=== PATIENT | male | born 1940 | race Asian ===

== ENCOUNTER → 2018-07-22 | Day surgery (SDC) | payer MEDICARE ==
[2018-07-14 13:08] LABS: BASOPHILS # (AUTO) 0.1 (0.0-0.1); BASOPHILS % 0.3 % (0.0-1.0); EOSINOPHILS # (AUTO) 0.1 (0.0-0.4); EOSINOPHILS % 0.7 % (0.0-6.0); HEMATOCRIT 39.1 % (38.2-49.6); HEMOGLOBIN 12.8 g/dL (14.0-18.0); LYMPHOCYTES # (AUTO) 0.5 (1.0-3.2); LYMPHOCYTES % 2.5 % (18.0-39.1); MEAN CORPUSCULAR HEMOGLOBIN 31.9 pg (28-32); MEAN CORPUSCULAR HGB CONC 32.7 g/dL (31-35); MEAN CORPUSCULAR VOLUME 97.5 fL (81-99); MONOCYTES # (AUTO) 0.6 (0.2-0.8); MONOCYTES % 3.2 % (4.4-11.3); NEUTROPHILS # (AUTO) 17.5 (2.1-6.9); NEUTROPHILS % 92.2 % (38.7-80.0); PLATELET COUNT 259 x10e3/uL (140-360); RED BLOOD COUNT 4.01 x10e6/uL (4.3-5.7)
[~2018-07-22] MED LIST: AMLODIPINE BESY10 MG PO; FENTANYL CITRATE/PF 100MCG/2 ML INJ ONE; FOLIC ACID1 MG PO; GLUCAGON FOR INJ 1 MG VIAL ONE; HYOSCYAMINE SULFATE 0.5 MG/ML INJ ONE; LIDOCAINE HCL 2% LOCAL INJ 5 ML SDV VIAL INJ ONE; METHOTREXATE2.5 MG PO; MIDAZOLAM HCL 2 MG/2 ML VIAL ONE; PHENYLEPHRINE HCL 1% 10 MG/ML VIAL ONE; PROPOFOL IV EMULSION 10 MG/ML 50 ML VIAL ONE; RAPAFLO4 MG PO; VITAMIN D400 UNIT PO; Z.0.ALLOPURINOL100 M PO; Z.0.FOLIC ACID1 MG PO; Z.0.JALYN 0.5-0.41 E PO; Z.0.MILLIPRED5 MG PO; [UNRECOGNIZED DRUG - OTHER]
--- OUTSIDE RECORDS SUMMARY | 2018-07-22 11:39 | XMS REPORT | Continuity of Care Document ---
Author Author Edward [facility] Interface Address Unknown Phone Unavailable Problems Problem Status Onset Date Classification Date Reported Comments Source XRAY Active 06/22/2018 [facility] KIDNEY Active 07/11/2016 [facility] 592.0 Active 04/28/2014 [facility] 592.1/592.0 Active 04/28/2014 [facility] UNK Active 04/28/2014 [facility] RENAL STONE Active 03/11/2014 [facility] 592.0,592.1/KSTONE PROTOCOL NO IV AND Active 02/12/2013 [facility] STONE 592.0 592.1 / CPT 19276 [id number] Active 01/06/2012 [facility] [place]<sup>1</sup> Resolved 03/07/2010 Problem 06/25/2018 This problem was automatically added by [facility]cern for patients less than 28 days old. [facility] [place] Gout Active Problem 06/25/2018 [facility] [place] Hypertension Active Problem 06/25/2018 [facility] [place] Renal stones Resolved Problem 06/25/2018 [facility] [place] Ureteral stone Active Problem 06/25/2018 [facility] [place] CALCULUS OF KIDNEY Active [facility] CALCULUS OF URETER Active [facility] +PPD Active [facility] NONSP REVA SKN TEST WO TB Active [facility] PNEUMONIA Active [facility] PNEUMONIA, ORGANISM NOS Active [facility] M25.521 Active [facility] PAIN IN RIGHT ELBOW Active [facility] COUGH Active [facility] COUGH Active [facility] KUB Active [facility] CALCULUS OF KIDNEY Active [facility] CHEST PAIN, UNSPECIFIED Active [facility] PAIN IN RIGHT HAND Active [facility] PAIN IN LEFT HAND Active [facility] Medications Medication Details Route Status Patient Instructions Ordering Provider Order Date Source Pyridium 100 mg oral tablet 100 mg=1 tab, PO, TID, # 21 tab, 0 Refill(s) Active 05/18/2014 [facility] Ciprofloxacin 500 MG Oral Tablet [Cipro] 500 mg=1 tab, PO, Q12H, # 14 tab, 0 Refill(s) Active 05/18/2014 [facility] Hydromorphone 0.3 mg, Route: IVP, Q3H, Dosing Weight 68.182, kg, PRN Pain Score 4-6, Start date: 05/18/14 10:06:00, Duration: 30 day, Stop date: 06/17/14 10:05:00 Inactive 05/18/2014 [facility] Ciprofloxacin 2 MG/ML Injectable Solution [Cipro] 400 mg, Route: IVPB, ONCE, Dosing Weight 68.182, kg, Start date: 05/18/14 9:25:00, Stop date: 05/18/14 9:25:00 Inactive 05/18/2014 [facility] Calcium Chloride 0.0014 MEQ/ML / Potassium Chloride 0.004 MEQ/ML / Sodium Chloride 0.103 MEQ/ML / Sodium Lactate 0.028 MEQ/ML Injectable Solution 1,000 mL, Rate: 25 ml/hr, Infuse over: 40 hr, Route: IV, Dosing Weight 68.182 kg, Total Volume: 1,000, Start date: 05/18/14 8:20:00, Duration: 30 day, Stop date: 06/17/14 8:19:00 Inactive 05/18/2014 [facility] ondansetron 4 mg, 2 mL, Route: IVP, Drug form: INJ, ONCE, Dosing Weight 68.182, kg, PRN Nausea & Vomiting, Start date: 01/10/12 12:51:00 IVP No Longer Active [facility] 01/10/2012 [facility] acetaminophen-hydrocodone 325 mg-5 mg oral tablet 2 tab, Route: PO, Drug Form: TAB, Dosing Weight 68.182, kg, Q4H, PRN Pain Score 4-6, Start date: 01/10/12 12:51:00, Duration: 30 day, Stop date: 02/09/12 12:50:00 PO No Longer Active [facility] 01/10/2012 [facility] niCARdipine 0.25 mg, 0.1 mL, Route: IVP, Drug form: INJ, Q5Min, Dosing Weight 68.182, kg, PRN Elevated BP, Start date: 01/10/12 12:51:00, Duration: 4 doses or times, Stop date: Limited # of times IVP No Longer Active [facility] 01/10/2012 [facility] fentanyl 25 microgram, 0.5 mL, Route: IVP, Drug form: INJ, Q5Min, Dosing Weight 68.182, kg, PRN Pain Score 4-6, Start date: 01/10/12 12:51:00, Duration: 4 doses or times, Stop date: Limited # of times IVP No Longer Active [facility] 01/10/2012 [facility] metoprolol 1 mg, 1 mL, Route: IVP, Drug form: INJ, Q5Min, Dosing Weight 68.182, kg, PRN Elevated BP, Start date: 01/10/12 12:51:00, Duration: 5 doses or times, Stop date: Limited # of times IVP No Longer Active [facility] 01/10/2012 [facility] labetalol 5 mg, 1 mL, Route: IVP, Drug form: INJ, Q5Min, Dosing Weight 68.182, kg, PRN Elevated BP, Start date: 01/10/12 12:51:00, Duration: 5 doses or times, Stop date: Limited # of times IVP No Longer Active [facility] 01/10/2012 [facility] hydrALAZINE 5 mg, 0.25 mL, Route: IVP, Drug form: INJ, Q5Min, Dosing Weight 68.182, kg, PRN Elevated BP, Start date: 01/10/12 12:51:00, Duration: 4 doses or times, Stop date: Limited # of times IVP No Longer Active [facility] 01/10/2012 [facility] Lactated Ringers Injection IV 1,000 mL 1,000 mL, Rate: 50 ml/hr, Infuse over: 20 hr, Route: IV, kg, Total Volume: 1,000, Start date: 01/10/12 12:51:00, Duration: 30 day, Stop date: 02/09/12 12:50:00 IV No Longer Active [facility] 01/10/2012 [facility] naloxone 0.04 mg, 0.04 mL, Route: IVP, Drug form: INJ, Q2MIN, Dosing Weight 68.182, kg, PRN Narcotic Reversal, Start date: 01/10/12 12:51:00, Duration: 8 doses or times, Stop date: Limited # of times IVP No Longer Active [facility] 01/10/2012 [facility] flumazenil 0.2 mg, 2 mL, Route: IVP, Drug form: INJ, PRN, Dosing Weight 68.182, kg, PRN Benzodiazepine Reversal, Initial dose, Start date: 01/10/12 12:51:00, Duration: 30 day, Stop date: 02/09/12 11:50:00 IVP No Longer Active [facility] 01/10/2012 [facility] meperidine 12.5 mg, 0.25 mL, Route: IVP, Drug form: INJ, Q30Min, Dosing Weight 68.182, kg, PRN Other -See Comment, For shivering, Start date: 01/10/12 12:51:00, Duration: 2 doses or times, Stop date: Limited # of times IVP No Longer Active [facility] 01/10/2012 [facility] morphine Sulfate 2 mg, 1 mL, Route: IVP, Drug form: INJ, Q5Min, Dosing Weight 68.182, kg, PRN Pain Score 4-6, Start date: 01/10/12 12:51:00, Duration: 8 doses or times, Stop date: Limited # of times IVP No Longer Active [facility] 01/10/2012 [facility] hydromorphone 0.5 mg, 0.5 mL, Route: IVP, Drug form: SOLN, Q5Min, Dosing Weight 68.182, kg, PRN Pain Score 4-6, Start date: 01/10/12 12:51:00, Duration: 5 doses or times, Stop date: Limited # of times IVP No Longer Active [facility] 01/10/2012 [facility] Ditropan 5 mg, Route: PO, Drug form: TAB, ONCE, Dosing Weight 68.182, kg, Start date: 01/10/12 11:41:00, Stop date: 01/10/12 11:41:00 PO No Longer Active [facility] 01/10/2012 [facility] Pyridium 200 mg, Route: PO, Drug form: TAB, ONCE, Dosing Weight 68.182, kg, Start date: 01/10/12 11:41:00, Stop date: 01/10/12 11:41:00 PO No Longer Active [facility] 01/10/2012 [facility] gentamicin 120 mg, Route: IVPB, ONCE, Dosing Weight 68.182, kg, Start date: 01/10/12 8:02:00, Stop date: 01/10/12 8:02:00 IVPB No Longer Active [facility] 01/10/2012 [facility] Ancef 1 gm, Route: IVPB, ONCE, Dosing Weight 68.182, kg, Start date: 01/10/12 8:02:00, Duration: 1 doses or times, Stop date: 01/10/12 8:02:00 IVPB No Longer Active [facility] 01/10/2012 [facility] Lactated Ringers Injection IV 1000 mL 1,000 mL, Rate: 25 ml/hr, Infuse over: 40 hr, Route: IV, Dosing Weight 68.182 kg, Total Volume: 1,000, Start date: 01/10/12 7:46:00, Duration: 30 day, Stop date: 02/09/12 7:45:00 IV No Longer Active [facility] 01/10/2012 [facility] folic acid 1 mg oral tablet 1 mg, 1 tab, PO, Daily, 30 tab, Substitution Allowed, TAB PO Active 01/08/2012 [facility] allopurinol 100 mg oral tablet 100 mg, 1 tab, PO, BID, 180 tab, Substitution Allowed, TAB PO Active 01/08/2012 [facility] amLODipine 10 mg oral tablet 10 mg, 1 tab, PO, Daily, 30 tab, Substitution Allowed, TAB PO Active 01/08/2012 [facility] prednisoLONE 5 mg oral tablet 5 mg, 1 tab, PO, Daily, 7 tab, Substitution Allowed, TAB PO Active 01/08/2012 [facility] Advair Diskus 250 mcg-50 mcg inhalation powder 1 puff, INHALATION, BID, 28 ea, Substitution Allowed, Maintenance, PWDR INHALATION Active 01/08/2012 [facility] Allergies, Adverse Reactions, Alerts Substance Category Reaction Severity Reaction type Status Date Reported Comments Source NSAIDs Assertion Drug allergy Active [facility] Immunizations Immunization Date Given Site Status Last Updated Comments Source Results Order Name Results Value Reference Range Date Interpretation Comments Source Hand 2 views Bilateral DX Hand 2 views Bilateral DX Hand 2 views Bilateral DX, 06/22/2018 11:31 CDT HISTORY: - M79.641 Pain in right hand; m79.642 pain in left hand COMPARISON: None FINDINGS: Right hand: There is radiocarpal joint space narrowing. Fish carpal crowding noted with areas of carpal bony ankylosis. There also appears to be bony ankylosis of several carpal metacarpal joints. There is MCP joint space narrowing with irregularity along the ulnar aspect of the 2nd and 3rd metacarpal heads likely chronic erosions. There is also arthrosis of the DIP joints with joint space narrowing and a few small osteophytes. Periarticular osteopenia noted. Soft tissues unremarkable. Left hand: Marked radiocarpal joint space narrowing with lucencies either cyst or erosions in the distal radius. There is fish carpal crowding with bony ankylosis of several carpal bones. Marked MCP joint space narrowing with marginal erosions at the 2nd and 3rd metacarpal joints. Mild arthrosis of the DIP joints. Mild soft tissue swelling about the hand and wrist. 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 TECHNIQUE: Frontal and lateral radiographs of the chest were obtained. FINDINGS: 2. Findings suggestive of chronic obstructive pulmonary disease. The lungs are clear. There are no pulmonary infiltrates or pleural effusions. The heart and pulmonary vasculature are within normal limits. There are mild atherosclerotic calcifications involving the thoracic aorta. The regional skeleton is unremarkable. IMPRESSION: 1. No active disease. 2. Findings suggestive of chronic obstructive pulmonary disease. : [id number] 06/22/2018 - - Read by: Eddy Saldaña MD Dictated Date/time: 06/22/18 13:43 Electronically Signed by: Eddy Saldaña MD 06/22/18 13:44 FINAL REPORT [facility] Abdomen AP DX Abdomen AP DX KUB: The low pelvis is not included. The renal shadows are obscured by bowel content. There is a 2 mm density overlying the lower pole of the left kidney. There are no other visible urinary tract calculi. There is moderate fecal material throughout the colon. The abdominal gas pattern is otherwise normal. There is no significant change compared to 06/26/2015. [id number] 07/11/2016 - - Read by: Susie Breen MD Dictated Date/time: 07/11/16 10:13 Electronically Signed by: Susie Breen MD 07/11/16 10:16 FINAL REPORT [facility] Sinus wo contrast CT Sinus wo contrast CT EXAM: SINUS CT WITHOUT CONTRAST DATE: 09/01/2015 9:40 AM CDT CLINICAL INDICATION: Nasal polyposis. TECHNIQUE: Thin section axial images are obtained from skull base through vertex ([place]) without IV contrast. Axial, sagittal, and coronal images are interpreted. Dose: DLP 250 mGy-cm COMPARISON: 05/08/2009 CT sinus FINDINGS: Frontal sinuses: Moderate bilateral mucosal thickening with occluded frontal ethmoidal recesses. Mucous in each antrum. Ethmoid sinuses: Diffuse bilateral anterior mucosal thickening without septal demineralization. Planum and fovea are intact. Infundibular are occluded. Sphenoid sinuses: Circumferential mucosal thickening bilaterally. Bilateral ethmoidal recess occlusion. Planum is intact. Maxillary sinuses: Status post bilateral antrostomy. Circumferential mucosal thickening with patent postoperative drainage pathways. [place] drainage pathways are occluded. Nasal airway: Slight S-shaped septal deviation without spurring. Middle lower turbinates are hypertrophic with small polyps. No large inflammatory polyp identified. Mastoids: Clear Soft tissues: Unremarkable IMPRESSION: Sinonasal polyposis with multifocal paranasal sinus mucosal inflammation and drainage obstruction, but no air-fluid level or destructive lesion. Findings are stable to minimally improved compared to the 05/08/2009 CT. 09/01/2015 - - Read by: Dagoberto Cordova MD Dictated Date/time: 09/01/15 10:24 Electronically Signed by: Dagoberto Cordova MD 09/01/15 12:53 FINAL REPORT [facility] Abdomen AP DX Abdomen AP DX Clinical Indication: n20.0 renal stone; Comparison: 06/20/2014 Report: see impression IMPRESSION: No urinary tract calculus is identified radiographically. Arterial vascular calcifications and phleboliths are again noted. Degenerative changes of the lumbar spine. Bowel gas pattern normal. SL: [id number] 06/26/2015 - - Read by: Marko Whitman MD Dictated Date/time: 06/26/15 17:37 Electronically Signed by: Marko Whitman MD 06/26/15 17:38 FINAL REPORT [facility] Elbow 3 views DX Elbow 3 views DX Examination: Right elbow, 3 views History: m25.521 pain in right elbow Comparison: None. Findings: Multiple views of the right elbow show no acute bony fracture, joint dislocation, or definitive osseous erosion. Moderate to severe osteoarthrosis of the ulnohumeral and radiocapitellar joints is seen with joint space narrowing and marginal osseous spurring with subchondral cystic change. Bones are demineralized. Large right elbow joint effusion is noted. Arterial calcifications are seen. 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 SL: 16 01/24/2015 - - Read by: Mir Denny MD Dictated Date/time: 01/24/15 11:35 Electronically Signed by: Mir Denny MD 01/24/15 11:36 FINAL REPORT [facility] Chest 2 views DX Chest 2 views DX Examination: Chest x-ray, 2 views History: cough Comparison: 04/23/2013 Findings: Cardiac silhouette is normal in size. Emphysematous changes of the lungs are seen. No pleural effusion or pneumothorax is seen. No focal consolidation is noted. The osseous structures are without focal abnormality. IMPRESSION: COPD without acute disease SL: 16 08/26/2014 - - Read by: Mir Denny MD Dictated Date/time: 08/26/14 09:56 Electronically Signed by: Mir Denny MD 08/26/14 09:57 FINAL REPORT [facility] Abdomen AP DX Abdomen AP DX HISTORY: Urinary tract calculi. Abdomen one view. COMPARISON: 05/18/2014. Left ureteral stent no longer present. Left internal iliac calcific atherosclerotic plaque, as before. Few pelvic phleboliths. No urinary tract calculus is evident, otherwise. SL:13 06/20/2014 - - Read by: Marko Whitman MD Dictated Date/time: 06/20/14 09:16 Electronically Signed by: Marko Whitman MD 06/20/14 09:18 FINAL REPORT [facility] Renal pyelogram retrograde DX Renal pyelogram retrograde DX Examination: Retrograde pyelogram, 6 views History: Lt stone/fluoro time=[id number]/Dose=[id number]/Cysto Room Comparison: None. Findings: Multiple intraoperative fluoroscopic views from a retrograde pyelogram are submitted for interpretation. The left ureter was cannulated. Contrast in the distal segment of the left ureter is seen. Left-sided ureteral stent is subsequently placed. SL: 16 05/18/2014 - - Read by: Mir Denny MD Dictated Date/time: 05/18/14 10:58 Electronically Signed by: Mir Denny MD 05/18/14 10:59 FINAL REPORT [facility] Abdomen AP view Abdomen AP view KUB: The renal shadows are obscured by bowel content. The 5 mm calculus in the distal left ureter is unchanged in position from the previous KUB on 04/28/2014. No other definite urinary tract calculi are seen. There is moderate fecal material throughout the colon. The gas pattern is otherwise within normal limits. Degenerative changes in the lumbar spine are again seen without acute osseous abnormalities. SL:13 05/18/2014 - - Read by: Susie Breen MD Dictated Date/time: 05/18/14 07:03 Electronically Signed by: Susie Breen MD 05/18/14 07:05 FINAL REPORT [facility] CHEM PANEL BUN 24 mg/dL - 05/11/2014 [facility] [place] eGFR 67 mL/min/1.73m2 05/11/2014 1Result Comment: The eGFR is calculated using the CKD-EPI formula. In most young, healthy individuals the eGFR will be >90 mL/min/1.73m2. The eGFR declines with age. An eGFR of 60-89 may be normal in some populations, particularly the elderly, for whom the CKD-EPI formula has not been extensively validated. Use of the eGFR is not recommended in the following populations: Individuals with unstable creatinine concentrations, including patients and those with serious co-morbid conditions. Patients with extremes in muscle mass or diet. The data above are obtained from the National Kidney Disease Education Program (NKDEP) which additionally recommends that when the eGFR is used in patients with extremes of body mass index for purposes of drug dosing, the eGFR should be multiplied by the estimated BMI. [facility] CHEM PANEL Chloride Lvl 107 meq/L 95 - 109 05/11/2014 [facility] CHEM PANEL CO2 31 meq/L 24 - 32 05/11/2014 [facility] CHEM PANEL Potassium Lvl 4.3 meq/L 3.5 - 5.1 05/11/2014 [facility] CHEM PANEL Sodium Lvl 141 meq/L 135 - 145 05/11/2014 [facility] CHEM PANEL Calcium Lvl 9.0 mg/dL 8.5 - 10.5 05/11/2014 [facility] CHEM PANEL Creatinine Lvl 1.1 mg/dL 0.5 - 1.4 05/11/2014 [facility] CHEM PANEL Glucose Lvl 107 mg/dL 70 - 99 05/11/2014 2Interpretive Data: Adult reference range values reflect the clinical guidelines of the [place] [employer]. [facility] CHEM PANEL AGAP 7.3 meq/L 10.0 - 20.0 05/11/2014 [facility] HEMATOLOGY PT 13.1 s 12.0 - 14.7 05/11/2014 [facility] PTT 27.3 s 22.9 - 35.8 05/11/2014 5Interpretive Data: Heparin Therapeutic Range: 57 - 92 Seconds [facility] INR 0.99 0.85 - 1.17 05/11/2014 4Interpretive Data: RECOMMENDED RANGES FOR PROTIME INR: 2.0-3.0 for most medical and surgical thromboembolic states. 2.5-3.5 for artificial heart valves and recurrent embolism. INR SHOULD BE USED ONLY FOR PATIENTS ON STABLE ANTICOAGULANT THERAPY. [facility] MCHC 33.0 g/dL 32.0 - 36.0 05/11/2014 [facility] MPV 11.0 fL 7.4 - 10.4 05/11/2014 [facility] Platelet 164 K/CMM 133 - 450 05/11/2014 [facility] RBC 4.33 M/CMM 4.70 - 6.10 05/11/2014 [facility] MCH 35.4 pg 27.0 - 31.0 05/11/2014 [facility] RDW 13.5 % 11.5 - 14.5 05/11/2014 [facility] MCV 107.2 fL 80.0 - 94.0 05/11/2014 [facility] Hct 46.4 % 42.0 - 54.0 05/11/2014 [facility] Hgb 15.3 g/dL 14.0 - 18.0 05/11/2014 [facility] WBC 8.0 K/CMM 3.7 - 10.4 05/11/2014 [facility] Monocytes # 1.0 K/CMM 0.0 - 0.8 05/11/2014 [facility] Eosinophils # 0.8 K/CMM 0.0 - 0.5 05/11/2014 [facility] HEMATOLOGY Lymphocytes # 0.9 K/CMM 1.0 - 5.5 05/11/2014 [facility] HEMATOLOGY Macrocyte 2+ *ABN* (05/11/14 12:13 PM) None Seen 05/11/2014 [facility] HEMATOLOGY Eosinophils 10.1 % 0.0 - 4.0 05/11/2014 [facility] HEMATOLOGY Segs-Bands # 5.2 K/CMM 1.5 - 8.1 05/11/2014 [facility] HEMATOLOGY Monocytes 12.5 % 2.0 - 12.0 05/11/2014 [facility] HEMATOLOGY Basophils 0.6 % 0.0 - 1.0 05/11/2014 [facility] HEMATOLOGY Lymphocytes 11.9 % 20.0 - 40.0 05/11/2014 [facility] HEMATOLOGY Segs 64.9 % 45.0 - 75.0 05/11/2014 [facility] URINE AND STOOL UA Leuk Est Negative (05/11/14 12:13 PM) Negative 05/11/2014 [facility] URINE AND STOOL UA RBC 2 /HPF 0 - 2 05/11/2014 [facility] URINE AND STOOL UA WBC 1 /HPF 0 - 5 05/11/2014 [facility] URINE AND STOOL UA Mucus Few /LPF None Seen /LPF 05/11/2014 [facility] URINE AND STOOL UA Sperm None Seen /HPF None Seen /HPF 05/11/2014 3Result Comment: called to nazario alves [facility] URINE AND STOOL UA Urobilinogen <=1.0 mg/dL 0.1 - 1.0 05/11/2014 [facility] URINE AND STOOL UA Sq Epi None Seen 05/11/2014 [facility] URINE AND STOOL UA Blood Negative (05/11/14 12:13 PM) Negative 05/11/2014 [facility] URINE AND STOOL UA Nitrite Negative (05/11/14 12:13 PM) Negative 05/11/2014 [facility] URINE AND STOOL UA Ketones Negative mg/dL Negative mg/dL 05/11/2014 [facility] URINE AND STOOL UA Bili Negative *NA* (05/11/14 12:13 PM) Negative 05/11/2014 [facility] URINE AND STOOL UA Protein Negative mg/dL Negative mg/dL 05/11/2014 [facility] URINE AND STOOL UA pH 5.0 5.0 - 8.0 05/11/2014 [facility] URINE AND STOOL UA Spec Grav 1.020 <=1.030 05/11/2014 [facility] URINE AND STOOL UA Glucose Negative mg/dL Negative mg/dL 05/11/2014 [facility] URINE AND STOOL UA Turbidity Clear (05/11/14 12:13 PM) Clear 05/11/2014 [facility] URINE AND STOOL UA Color Yellow *NA* (05/11/14 12:13 PM) Yellow 05/11/2014 [facility] Chest 2 views Chest 2 views Examination: Chest x-ray, 2 views History: pneumonia Comparison: 03/25/2012 Findings: Emphysematous changes throughout the lungs are again seen. There is no consolidation or congestion. No pleural effusion or pneumothorax is seen. The cardiac silhouette is normal in size. The osseous structures are stable. IMPRESSION: Stable exam of the chest without acute disease. SL: 13 04/23/2013 - - Read by: Mir Denny Dictated Date/time: 04/23/13 16:26 Electronically Signed by: Mir Denny MD 04/23/13 16:27 FINAL REPORT [facility] [facility] Renal Stone CT Renal Stone CT NONCONTRAST CT UROGRAM: TECHNIQUE: 5 mm helical images of the abdomen and pelvis were done without contrast, targeted to the urinary tract. FINDINGS: There is a 4 mm calyceal stone in the lower pole of the left kidney. No other renal or ureteral calculi are demonstrated. There are 3 small low density areas in the left kidney, a couple of which contain small focal calcifications, probably complex cysts. There are no other significant renal abnormalities. The prostate is enlarged with smooth bilobed impression on the bladder base. The bladder is underfilled but otherwise unremarkable. The liver, gallbladder, pancreas and adrenal glands are unremarkable. The appendix is normal. IMPRESSION: 1. Small left renal calyceal stone. 2. No evidence of ureteral calculus or hydronephrosis. 3. Small low density lesions in the left kidney, probably complex cysts. 4. Prostate enlargement. SL:13 02/18/2013 - - Read by: Susie Breen Dictated Date/time: 02/19/13 08:07 Electronically Signed by: Susie Breen MD 02/19/13 08:12 FINAL REPORT [facility] CHEMISTRY AGAP 10.0 meq/L 10.0 - 20.0 01/08/2012 Normal [facility] CHEMISTRY eGFR 68 mL/min/1.73m2 01/08/2012 NA 1Result Comment: The eGFR is calculated using the CKD-EPI formula. In most young, healthy individuals the eGFR will be >90 mL/min/1.73m2. The eGFR declines with age. An eGFR of 60-89 may be normal in some populations, particularly the elderly, for whom the CKD-EPI formula has not been extensively validated. Use of the eGFR is not recommended in the following populations: Individuals with unstable creatinine concentrations, including patients and those with serious co-morbid conditions. Patients with extremes in muscle mass or diet. The data above are obtained from the National Kidney Disease Education Program (NKDEP) which additionally recommends that when the eGFR is used in patients with extremes of body mass index for purposes of drug dosing, the eGFR should be multiplied by the estimated BMI. [facility] CHEMISTRY BUN 22 mg/dL 7 - 22 01/08/2012 Normal [facility] CHEMISTRY Creatinine Lvl 1.1 mg/dL 0.5 - 1.4 01/08/2012 Normal [facility] CHEMISTRY Glucose Lvl 86 mg/dL 70 - 99 01/08/2012 Normal 2Interpretive Data: Adult reference range values reflect the clinical guidelines of the [place] [employer]. [facility] CHEMISTRY Calcium Lvl 8.6 mg/dL 8.5 - 10.5 01/08/2012 Normal [facility] CHEMISTRY CO2 33 meq/L 24 - 32 01/08/2012 HI [facility] CHEMISTRY Potassium Lvl 4.0 meq/L 3.5 - 5.1 01/08/2012 Normal [facility] CHEMISTRY Chloride Lvl 104 meq/L 95 - 109 01/08/2012 Normal [facility] CHEMISTRY Sodium Lvl 143 meq/L 135 - 145 01/08/2012 Normal [facility] HEMATOLOGY Lymphocytes 4.3 % 20.0 - 40.0 01/08/2012 LOW [facility] HEMATOLOGY Segs 79.1 % 45.0 - 75.0 01/08/2012 HI [facility] HEMATOLOGY Segs-Bands # 10.9 K/CMM 1.5 - 8.1 01/08/2012 [facility] HEMATOLOGY Eosinophils 5.5 % 0.0 - 4.0 01/08/2012 [facility] HEMATOLOGY Monocytes 11.0 % 2.0 - 12.0 01/08/2012 Normal [facility] HEMATOLOGY Basophils 0.1 % 0.0 - 1.0 01/08/2012 Normal [facility] HEMATOLOGY Basophils # 0.0 K/CMM 0.0 - 0.2 01/08/2012 Normal [facility] HEMATOLOGY Monocytes # 1.5 K/CMM 0.0 - 0.8 01/08/2012 [facility] HEMATOLOGY Lymphocytes # 0.6 K/CMM 1.0 - 5.5 01/08/2012 LOW [facility] HEMATOLOGY Eosinophils # 0.8 K/CMM 0.0 - 0.5 01/08/2012 [facility] HEMATOLOGY PTT 33.2 s 22.9 - 35.8 01/08/2012 Normal 4Interpretive Data: Heparin Therapeutic Range: 57 - 92 Seconds [facility] HEMATOLOGY INR 0.93 0.85 - 1.17 01/08/2012 Normal 3Interpretive Data: RECOMMENDED RANGES FOR PROTIME INR: 2.0-3.0 for most medical and surgical thromboembolic states. 2.5-3.5 for artificial heart valves and recurrent embolism. INR SHOULD BE USED ONLY FOR PATIENTS ON STABLE ANTICOAGULANT THERAPY. [facility] HEMATOLOGY PT 12.7 s 12.0 - 14.7 01/08/2012 Normal [facility] HEMATOLOGY RBC 3.98 M/CMM 4.70 - 6.10 01/08/2012 LOW [facility] HEMATOLOGY WBC 13.8 K/CMM 3.7 - 10.4 01/08/2012 [facility] HEMATOLOGY MCH 35.2 pg 27.0 - 31.0 01/08/2012 [facility] HEMATOLOGY MCV 104.6 fL 80.0 - 94.0 01/08/2012 [facility] HEMATOLOGY RDW 13.8 % 11.5 - 14.5 01/08/2012 Normal [facility] HEMATOLOGY MCHC 33.6 g/dL 32.0 - 36.0 01/08/2012 Normal [facility] HEMATOLOGY Hgb 14.0 g/dL 14.0 - 18.0 01/08/2012 Normal [facility] HEMATOLOGY Hct 41.6 % 42.0 - 54.0 01/08/2012 LOW [facility] HEMATOLOGY Platelet 261 K/CMM 133 - 450 01/08/2012 Normal [facility] HEMATOLOGY MPV 9.4 fL 7.4 - 10.4 01/08/2012 Normal [facility] Vital Signs Vital Sign Value Date Comments Source Diastolic (mm Hg) 72 05/18/2014 [facility] Systolic (mm Hg) 138 05/18/2014 [facility] Respitory Rate 14 05/18/2014 [facility] Systolic (mm Hg) 128 05/18/2014 [facility] Diastolic (mm Hg) 72 05/18/2014 [facility] Resp[place] Rate 20 05/18/2014 [facility] Respitory Rate 16 05/18/2014 [facility] Systolic (mm Hg) 117 05/18/2014 [facility] Diastolic (mm Hg) 62 05/18/2014 [facility] Height 165.1 cm 05/11/2014 [facility] Weight 68.182 05/11/2014 [facility] BMI Calculated 25.01 05/11/2014 [facility] Heart Rate 72 05/11/2014 [facility] Temperature Oral (F) 97.4 F 05/11/2014 [facility] Diastolic (mm Hg) 78 01/10/2012 [facility] Systolic (mm Hg) 141 01/10/2012 [facility] Systolic (mm Hg) 125 01/10/2012 [facility] Diastolic (mm Hg) 68 01/10/2012 [facility] Systolic (mm Hg) 118 01/10/2012 [facility] Diastolic (mm Hg) 62 01/10/2012 [facility] Respitory Rate 21 01/10/2012 [facility] Respitory Rate 15 01/10/2012 [facility] Respitory Rate 16 01/10/2012 [facility] Heart Rate 76 01/10/2012 [facility] Heart Rate 80 01/08/2012 [facility] Temperature Oral (F) 98.1 F 01/08/2012 [facility] Height 167.64 cm 01/08/2012 [facility] Weight 68.182 01/08/2012 [facility] Encounters Location Location Details Encounter Type Encounter Number Reason For Visit Attending Provider ADM Date DC Date Status Source [facility] DS [id number] ALBERTO SWARTZ 01/10/2012 01/10/2012 Active [facility] Outpatient [id number] 592.0 ALBERTO SWARTZ 02/05/2012 02/05/2012 Active [facility] Outpatient [id number] +PPD SUSIE LOVELL 03/25/2012 Active [facility] Outpatient [id number] 592.0,592.1/KSTONE PROTOCOL NO IV AND NO ORAL ALBERTO SWARTZ 02/18/2013 Active [facility] Outpatient [id number] PNEUMONIA SUSIE LOVELL 04/23/2013 Active [facility] Outpatient [id number] Alberto Swartz 03/18/2014 03/19/2014 [facility] Outpatient [id number] Alberto Swartz 04/28/2014 04/29/2014 [facility] OBS Day Surgery [id number] Alberto Cheungen 05/18/2014 05/18/2014 [facility] Outpatient [id number] Alberto Cheungen 06/20/2014 06/21/2014 [facility] Outpatient [id number] Susie Lovell 08/26/2014 08/27/2014 [facility] Outpatient [id number] Elisa Hoskins 01/24/2015 01/25/2015 [facility] Outpatient [id number] Alberto Swartz 06/26/2015 06/27/2015 [facility] [place] [facility] [id number] Niya Zelaya 09/01/2015 09/02/2015 [facility] Outpatient [id number] Alberto Cheungen 07/11/2016 07/12/2016 [facility] Outpatient [id number] Elisa Hoskins 06/22/2018 06/23/2018 [facility] Procedures Procedure Code Date Perfomer Comments Source ESWL of kidney [id number] [facility] ESWL of kidney [id number] DANIA Lino
--- OUTSIDE RECORDS SUMMARY | 2018-07-22 11:39 | XMS REPORT | Summary of Care ---
Author Author [facility] Organization [facility] Address Unknown Phone Unavailable Encounter HQ Latoya(FIN) [id number] Date(s): 06/22/18 - 06/22/18 [facility] [address] [place] [address]- [phone] Discharge Disposition: Home or Self Care Attending Physician: Elisa Hoskins MD Admitting Physician: Elisa Hoskins MD Vital Signs No data available for this section Problem List Condition Effective Dates Status Health Status Informant Gout(Confirmed) Active Hypertension(Confirm Active ed) [place](Confirmed)1 < 03/07/10 Resolved Renal Resolved stones(Confirmed) Ureteral Active stone(Confirmed) 1This problem was automatically added by Discern for patients less than 28 days old. Allergies, Adverse Reactions, Alerts Substance Reaction Severity Status NSAIDs Active Medications No data available for this section Results No data available for this section Immunizations No data available for this section Procedures Procedure Date Related Diagnosis Body Site Status ESWL of kidney Completed Social History Social History Type Response Substance Abuse Use: None. Alcohol Current, Type Beer. Frequency: 1-2 times per week. Smoking Status Never smoker; Exposure to Tobacco Smoke None; Cigarette Smoking Last 365 Days No; Reg Smoking Cessation Counseling No entered on: 05/11/14 Assessment and Plan No data available for this section
--- OUTSIDE RECORDS SUMMARY | 2018-07-22 11:40 | XMS REPORT | Summary of Care ---
Author Organization Unknown Address Unknown Phone Unavailable Encounter HQ Evertonntr_carlyle(FIN) [id number] Date(s): 05/18/14 - 05/18/14 [facility] [address] [address] Discharge Disposition: Home Physician Attending: Alberto Swartz MD Physician_Referring: Alberto Swartz MD Reason for Visit 592.1/592.0 Vital Signs 1 2 3 Most recent to oldest [Reference Range]: 165.1 cm (05/11/14 12:09 PM) Height 97.4 DegF (05/11/14 12:00 PM) Temperature Oral [96.4-99.1 DegF] 138 mmHg (05/18/14 11:30 AM) 128 mmHg (05/18/14 11:00 AM) 117 mmHg (05/18/14 10:45 AM) Systolic Blood Pressure [90-140 mmHg] 72 mmHg (05/18/14 11:30 AM) 72 mmHg (05/18/14 11:00 AM) 62 mmHg (05/18/14 10:45 AM) Diastolic Blood Pressure [60-90 mmHg] 14 BRMIN (05/18/14 11:30 AM) 20 BRMIN (05/18/14 11:00 AM) 16 BRMIN (05/18/14 10:45 AM) Respiratory Rate [14-20 BRMIN] 72 bpm (05/11/14 12:00 PM) Peripheral Pulse Rate [60-100 bpm] 68.182 kg (05/11/14 12:09 PM) Weight 25.01 m2 (05/11/14 12:09 PM) Body Mass Index Problem List Condition Effective Dates Status Health Status Informant Gout(Confirmed) Active Hypertension(Confirm Active ed) [place](Confirmed)1 Active Renal Resolved stones(Confirmed) Ureteral Active stone(Confirmed) 1This problem was automatically added by Discern for patients less than 28 days old. Allergies, Adverse Reactions, Alerts Substance Reaction Severity Status NSAIDs Active Medications Cipro 500 mg oral tablet 500 mg=1 tab, PO, Q12H, # 14 tab, 0 Refill(s) Start Date: 05/18/14 Stop Date: 05/25/14 Status: Ordered Cipro I.V. 400 mg/200 mL intravenous solution 400 mg, Route: IVPB, ONCE, Dosing Weight 68.182, kg, Start date: 05/18/14 9:25:0 0, Stop date: 05/18/14 9:25:00 Start Date: 05/18/14 Stop Date: 05/18/14 Status: Completed hydromorphone 0.3 mg, Route: IVP, Q3H, Dosing Weight 68.182, kg, PRN Pain Score 4-6, Start jessica e: 05/18/14 10:06:00, Duration: 30 day, Stop date: 06/17/14 10:05:00 Start Date: 05/18/14 Stop Date: 05/18/14 Status: Discontinued Lactated Ringers Injection IV 1000 mL 1,000 mL, Rate: 25 ml/hr, Infuse over: 40 hr, Route: IV, Dosing Weight 68.182 kg , Total Volume: 1,000, Start date: 05/18/14 8:20:00, Duration: 30 day, Stop date : 06/17/14 8:19:00 Start Date: 05/18/14 Stop Date: 05/18/14 Status: Discontinued Pyridium 100 mg oral tablet 100 mg=1 tab, PO, TID, # 21 tab, 0 Refill(s) Start Date: 05/18/14 Stop Date: 05/25/14 Status: Ordered Results ELECTROLYTES Most recent to 1 oldest [Reference Range]: Sodium Lvl [135-145 141 mEq/L mEq/L] (05/11/14 12:13 PM) Potassium Lvl 4.3 mEq/L [3.5-5.1 mEq/L] (05/11/14 12:13 PM) Chloride Lvl [95-109 107 mEq/L mEq/L] (05/11/14 12:13 PM) CO2 [24-32 mEq/L] 31 mEq/L (05/11/14 12:13 PM) AGAP [10.0-20.0 7.3 mEq/L mEq/L] *LOW* (05/11/14 12:13 PM) CHEM PANEL Most recent to 1 oldest [Reference Range]: Creatinine Lvl 1.1 mg/dL [0.5-1.4 mg/dL] (05/11/14 12:13 PM) eGFR 67 mL/min/1.73m2 1 *NA* (05/11/14 12:13 PM) BUN [7-22 mg/dL] 24 mg/dL *HI* (05/11/14 12:13 PM) Glucose Lvl [70-99 107 mg/dL 2 mg/dL] *HI* (05/11/14 12:13 PM) Calcium Lvl 9.0 mg/dL [8.5-10.5 mg/dL] (05/11/14 12:13 PM) 1Result Comment: The eGFR is calculated using [...] from the National Kidney Disease Education Program ( NKDEP) which additionally recommends that when the eGFR is used in patients with extremes of body mass index for purposes of drug dosing, the eGFR should be mul tiplied by the estimated BMI. 2Interpretive Data: Adult reference range values reflect the clinical guidelines of the [place] [employer]. URINE AND STOOL Most recent to 1 oldest [Reference Range]: UA Turbidity [Clear] Clear (05/11/14 12:13 PM) UA Color [Yellow] Yellow *NA* (05/11/14 12:13 PM) UA pH [5.0-8.0] 5.0 (05/11/14 12:13 PM) UA Spec Grav 1.020 [<=1.030] (05/11/14 12:13 PM) UA Glucose [Negative Negative mg/dL mg/dL] *NA* (05/11/14 12:13 PM) UA Blood [Negative] Negative (05/11/14 12:13 PM) UA Ketones [Negative Negative mg/dL mg/dL] *NA* (05/11/14 12:13 PM) UA Protein [Negative Negative mg/dL mg/dL] (05/11/14 12:13 PM) UA Urobilinogen <=1.0 mg/dL [0.1-1.0 mg/dL] *NA* (05/11/14: PM) UA Bili [Negative] Negative *NA* (05/11/14 12:13 PM) UA Leuk Est Negative [Negative] (05/11/14 12:13 PM) UA Nitrite Negative [Negative] (05/11/14 12:13 PM) UA WBC [0-5 /HPF] 1 /HPF (05/11/14 12:13 PM) UA RBC [0-2 /HPF] 2 /HPF (05/11/14 12:13 PM) UA Sq Epi None Seen *NA* (05/11/14 12:13 PM) UA Mucus [None Seen Few /LPF /LPF] *NA* (05/11/14 12:13 PM) UA Sperm [None Seen None Seen /HPF 3 /HPF] (05/11/14 12:13 PM) 3Result Comment: called to nazario alves HEMATOLOGY Most recent to 1 oldest [Reference Range]: WBC [3.7-10.4 K/CMM] 8.0 K/CMM (05/11/14 12:13 PM) RBC [4.70-6.10 4.33 M/CMM M/CMM] *LOW* (05/11/14: PM) Hgb [14.0-18.0 g/dL] 15.3 g/dL (05/11/14 12:13 PM) Hct [42.0-54.0 %] 46.4 % (05/11/14 12:13 PM) MCV [80.0-94.0 fL] 107.2 fL *HI* (05/11/14 12:13 PM) MCH [27.0-31.0 pg] 35.4 pg *HI* (05/11/14 12:13 PM) MCHC [32.0-36.0 33.0 g/dL g/dL] (05/11/14 12:13 PM) RDW [11.5-14.5 %] 13.5 % (05/11/14 12:13 PM) Platelet [133-450 164 K/CMM K/CMM] (05/11/14 12:13 PM) MPV [7.4-10.4 fL] 11.0 fL *HI* (05/11/14 12:13 PM) Segs [45.0-75.0 %] 64.9 % (05/11/14 12:13 PM) Lymphocytes 11.9 % [20.0-40.0 %] *LOW* (05/11/14 12:13 PM) Monocytes [2.0-12.0 12.5 % %] *HI* (05/11/14:13 PM) Eosinophils [0.0-4.0 10.1 % %] *HI* (05/11/14:13 PM) Basophils [0.0-1.0 0.6 % %] (05/11/14 12:13 PM) Segs-Bands # 5.2 K/CMM [1.5-8.1 K/CMM] (05/11/14 12:13 PM) Lymphocytes # 0.9 K/CMM [1.0-5.5 K/CMM] *LOW* (05/11/14 12:13 PM) Monocytes # [0.0-0.8 1.0 K/CMM K/CMM] *HI* (05/11/14 12:13 PM) Eosinophils # 0.8 K/CMM [0.0-0.5 K/CMM] *HI* (05/11/14 12:13 PM) Macrocyte [None 2+ Seen] *ABN* (05/11/14 12:13 PM) PT [12.0-14.7 13.1 seconds seconds] (05/11/14 12:13 PM) INR [0.85-1.17] 0.99 4 (05/11/14 12:13 PM) PTT [22.9-35.8 27.3 seconds 5 seconds] (05/11/14 12:13 PM) 4Interpretive Data: RECOMMENDED RANGES FOR PROTIME INR: 2.0-3.0 for most medical and surgical thromboembolic states. 2.5-3.5 for artificial heart valves and recurrent embolism. INR SHOULD BE USED ONLY FOR PATIENTS ON STABLE ANTICOAGULANT THERAPY. 5Interpretive Data: Heparin Therapeutic Range: 57 - 92 Seconds Medications Administered During Your Visit No data available for this section Immunizations No data available for this section Procedures Procedure Type Body Site Date of Procedure Related Diagnosis ESWL of kidney Social History Social History Type Response Substance Abuse Use: None Alcohol Use: Current, Type: Beer, Frequency: 1-2 times per week Smoking Status Never smoker, Exposure to Tobacco Smoke None, Cigarette Smoking Last 365 Days No, Reg Smoking Cessation Counseling No
--- OUTSIDE RECORDS SUMMARY | 2018-07-22 11:40 | XMS REPORT | CCD ---
Author Author Auto Generated Organization [facility] Address Unknown Phone Unavailable Care Team Providers Care Special Agent Secret Service Name Role Phone Pradeep Lovell CP Allergies, Adverse Reactions, Alerts Substance Reaction Status NSAIDs Active Problem List Condition Effective Dates Status Newborn1 Active 1This problem was automatically added by Discern for patients less than 28 days old.
--- OUTSIDE RECORDS SUMMARY | 2018-07-22 11:40 | XMS REPORT | Summary of Care ---
Author Author [facility] Organization [facility] [place] Address Unknown Phone Unavailable Encounter HQ Anshu_carlyle(FIN) [id number] Date(s): 09/01/15 - 09/01/15 [facility] [place] [address] [place] [address]- [facility] [phone] Discharge Disposition: Home Attending Physician: Niya Zelaya MD Vital Signs No data available for this section Problem List Condition Effective Dates Status Health Status Informant Gout(Confirmed) Active Hypertension(Confirm Active ed) [place](Confirmed)1 Active Renal Resolved stones(Confirmed) Ureteral Active stone(Confirmed) 1This problem was automatically added by Discern for patients less than 28 days old. Allergies, Adverse Reactions, Alerts Substance Reaction Severity Status NSAIDs Active Medications No data available for this section Results No data available for this section Immunizations No data available for this section Procedures Procedure Date Related Diagnosis Body Site ESWL of kidney Social History Social History Type Response Substance Abuse Use: None. Alcohol Current, Type Beer. Frequency: 1-2 times per week. Smoking Status Never smoker; Exposure to Tobacco Smoke None; Cigarette Smoking Last 365 Days No; Reg Smoking Cessation Counseling No Assessment and Plan No data available for this section
--- OUTSIDE RECORDS SUMMARY | 2018-07-22 11:40 | XMS REPORT | CCD ---
Author Author Auto Generated Organization [facility] Address Unknown Phone Unavailable Care Team Providers Care Payroll Administrative Assistant Name Role Phone Pradeep Lovell CP Allergies, Adverse Reactions, Alerts Substance Reaction Status NSAIDs Active
--- OUTSIDE RECORDS SUMMARY | 2018-07-22 11:40 | XMS REPORT | CCD ---
Author Author Auto Generated Organization [facility] Address Unknown Phone Unavailable Care Team Providers Care Motorcycle Subassembler Name Role Phone Alberto Ness [facility] CP Allergies, Adverse Reactions, Alerts Substance Reaction Status NSAIDs Active
--- OUTSIDE RECORDS SUMMARY | 2018-07-22 11:40 | XMS REPORT | Summary of Care ---
Author Author [facility] Organization [facility] Address Unknown Phone Unavailable Encounter HQ Anshu_carlyle(FIN) [id number] Date(s): 07/11/16 - 07/11/16 [facility] [address] [place] [address]- Discharge Disposition: Home or Self Care Attending Physician: Alberto Ness MD Admitting Physician: Alberto Ness MD Vital Signs No data available for this section Problem List Condition Effective Dates Status Health Status Informant Gout(Confirmed) Active Hypertension(Confirm Active ed) [place](Confirmed)1 < 03/07/10 Resolved Renal Resolved stones(Confirmed) Ureteral [...]
--- OUTSIDE RECORDS SUMMARY | 2018-07-22 11:40 | XMS REPORT | Summary of Care ---
Author Author [facility] Organization [facility] Address Unknown Phone Unavailable Encounter HQ Latoya(JAMEEL) [id number] Date(s): 01/24/15 - 01/24/15 [facility] [address] [place] [address]- Discharge Disposition: Home Attending Physician: Elisa Hoskins MD Vital Signs No data available for this section Problem List Condition Effective Dates Status Health Status Informant Gout(Confirmed) Active Hypertension(Confirm Active ed) (Confirmed)1 Active Renal Resolved stones(Confirmed) Ureteral Active stone(Confirmed) [...]
--- OUTSIDE RECORDS SUMMARY | 2018-07-22 11:40 | XMS REPORT | CCD ---
Author Author Auto Generated Organization [facility] Address Unknown Phone Unavailable Care Team Providers Care Film Sound Engineer Name Role Phone Alberto Ness [facility] RP Allergies, Adverse Reactions, Alerts Substance Reaction Status NSAIDs Active Problem List Condition Effective Dates Status Newborn1 Active 1This problem was automatically added by Discern for patients less than 28 days old.
--- OUTSIDE RECORDS SUMMARY | 2018-07-22 11:40 | XMS REPORT | Summary of Care ---
Author Organization Unknown Address Unknown Phone Unavailable Encounter HQ Anshu_carlyle(FIN) [id number] Date(s): 08/26/14 - 08/26/14 [facility] [address] [place] [address]- Discharge Disposition: Home Physician Attending: Pradeep Lovell MD Physician Admitting: Pradeep Lovell MD Vital Signs No data available for this section Problem List Condition Effective Dates Status Health Status Informant Gout(Confirmed) Active Hypertension(Confirm Active ed) [place](Confirmed)1 Active Renal Resolved stones(Confirmed) Ureteral Active stone(Confirmed) [...]
--- OUTSIDE RECORDS SUMMARY | 2018-07-22 11:40 | XMS REPORT | Summary of Care ---
Author Organization Unknown Address Unknown Phone Unavailable Encounter HQ Joer_carlyle(FIN) [id number] Date(s): 06/20/14 - 06/20/14 [facility] [address] [place] [address]- Discharge Disposition: Home Physician Attending: Alberto Ness MD Physician Admitting: Alberto Ness MD Vital Signs No data [...] No data available for this section Procedures No data available for this section Social History Social History Type Response Substance Abuse Use: None. Alcohol Current, Type Beer. Frequency: 1-2 times per week. Smoking Status Never smoker; Exposure to Tobacco Smoke None; Cigarette Smoking Last 365 Days No; Reg Smoking Cessation Counseling No Assessment and Plan No data available for this section
--- OUTSIDE RECORDS SUMMARY | 2018-07-22 11:40 | XMS REPORT | CCD ---
Author Author Auto Generated Organization [facility] Address Unknown Phone Unavailable Care Team Providers Care Youth Support Worker Name Role Phone Alberto Ness [facility] RP Allergies, Adverse Reactions, Alerts Substance Reaction Status NSAIDs Active Medications Medication Instructions Start Date End Date Status folic acid 1 mg oral 1 mg, 1 tab, PO, Daily, 30 tab, 01/08/2012 Ordered tablet Substitution Allowed, TAB allopurinol 100 mg 100 mg, 1 tab, PO, BID, 180 tab, 01/08/2012 Ordered oral tablet Substitution Allowed, TAB amLODipine 10 mg 10 mg, 1 tab, PO, Daily, 30 tab, 01/08/2012 Ordered oral tablet Substitution Allowed, TAB prednisoLONE 5 mg 5 mg, 1 tab, PO, Daily, 7 tab, 01/08/2012 Ordered oral tablet Substitution Allowed, TAB Advair Diskus 250 1 puff, INHALATION, BID, 28 ea, 01/08/2012 Ordered mcg-50 mcg Substitution Allowed, Maintenance, inhalation powder PWDR gentamicin 120 mg, Route: IVPB, ONCE, Dosing 01/10/2012 01/10/2012 Completed Weight 68.182, kg, Start date: 01/10/12 8:02:00, Stop date: 01/10/12 8:02:00 Ditropan 5 mg, Route: PO, Drug form: TAB, 01/10/2012 01/10/2012 Completed ONCE, Dosing Weight 68.182, kg, Start date: 01/10/12 11:41:00, Stop date: 01/10/12 11:41:00 ondansetron 4 mg, 2 mL, Route: IVP, Drug form: 01/10/2012 01/10/2012 Discontinued INJ, ONCE, Dosing Weight 68.182, kg, PRN Nausea & Vomiting, Start date: 01/10/12 12:51:00 acetaminophen-hydroc 2 tab, Route: PO, Drug Form: TAB, 01/10/2012 01/10/2012 Discontinued odone 325 mg-5 mg Dosing Weight 68.182, kg, Q4H, PRN oral tablet Pain Score 4-6, Start date: 01/10/12 12:51:00, Duration: 30 day, Stop date: 02/09/12 12:50:00 acetaminophen-hydroc 1 tab, Route: PO, Drug Form: TAB, 01/10/2012 01/10/2012 Discontinued odone 325 mg-5 mg Dosing Weight 68.182, kg, Q4H, PRN oral tablet Pain Score 1-3, Start date: 01/10/12 12:51:00, Duration: 30 day, Stop date: 02/09/12 12:50:00 niCARdipine 0.25 mg, 0.1 mL, Route: IVP, Drug 01/10/2012 01/10/2012 Discontinued form: INJ, Q5Min, Dosing Weight 68.182, kg, PRN Elevated BP, Start date: 01/10/12 12:51:00, Duration: 4 doses or times, Stop date: Limited # of times fentanyl 25 microgram, 0.5 mL, Route: IVP, 01/10/2012 01/10/2012 Discontinued Drug form: INJ, Q5Min, Dosing Weight 68.182, kg, PRN Pain Score 4-6, Start date: 01/10/12 12:51:00, Duration: 4 doses or times, Stop date: Limited # of times metoprolol 1 mg, 1 mL, Route: IVP, Drug form: 01/10/2012 01/10/2012 Discontinued INJ, Q5Min, Dosing Weight 68.182, kg, PRN Elevated BP, Start date: 01/10/12 12:51:00, Duration: 5 doses or times, Stop date: Limited # of times labetalol 5 mg, 1 mL, Route: IVP, Drug form: 01/10/2012 01/10/2012 Discontinued INJ, Q5Min, Dosing Weight 68.182, kg, PRN Elevated BP, Start date: 01/10/12 12:51:00, Duration: 5 doses or times, Stop date: Limited # of times hydrALAZINE 5 mg, 0.25 mL, Route: IVP, Drug 01/10/2012 01/10/2012 Discontinued form: INJ, Q5Min, Dosing Weight 68.182, kg, PRN Elevated BP, Start date: 01/10/12 12:51:00, Duration: 4 doses or times, Stop date: Limited # of times Lactated Ringers 1,000 mL, Rate: 50 ml/hr, Infuse 01/10/2012 01/10/2012 Discontinued Injection IV 1,000 over: 20 hr, Route: IV, kg, Total mL Volume: 1,000, Start date: 01/10/12 12:51:00, Duration: 30 day, Stop date: 02/09/12 12:50:00 naloxone 0.04 mg, 0.04 mL, Route: IVP, Drug 01/10/2012 01/10/2012 Discontinued form: INJ, Q2MIN, Dosing Weight 68.182, kg, PRN Narcotic Reversal, Start date: 01/10/12 12:51:00, Duration: 8 doses or times, Stop date: Limited # of times flumazenil 0.2 mg, 2 mL, Route: IVP, Drug 01/10/2012 01/10/2012 Discontinued form: INJ, PRN, Dosing Weight 68.182, kg, PRN Benzodiazepine Reversal, Initial dose, Start date: 01/10/12 12:51:00, Duration: 30 day, Stop date: 02/09/12 11:50:00 meperidine 12.5 mg, 0.25 mL, Route: IVP, Drug 01/10/2012 01/10/2012 Discontinued form: INJ, Q30Min, Dosing Weight 68.182, kg, PRN Other -See Comment, For shivering, Start date: 01/10/12 12:51:00, Duration: 2 doses or times, Stop date: Limited # of times morphine Sulfate 2 mg, 1 mL, Route: IVP, Drug form: 01/10/2012 01/10/2012 Discontinued INJ, Q5Min, Dosing Weight 68.182, kg, PRN Pain Score 4-6, Start date: 01/10/12 12:51:00, Duration: 8 doses or times, Stop date: Limited # of times hydromorphone 0.5 mg, 0.5 mL, Route: IVP, Drug 01/10/2012 01/10/2012 Discontinued form: SOLN, Q5Min, Dosing Weight 68.182, kg, PRN Pain Score 4-6, Start date: 01/10/12 12:51:00, Duration: 5 doses or times, Stop date: Limited # of times Lactated Ringers 1,000 mL, Rate: 25 ml/hr, Infuse 01/10/2012 01/10/2012 Voided With Injection IV 1000 mL over: 40 hr, Route: IV, Dosing Results Weight 68.182 kg, Total Volume: 1,000, Start date: 01/10/12 7:46:00, Duration: 30 day, Stop date: 02/09/12 7:45:00 Pyridium 200 mg, Route: PO, Drug form: TAB, 01/10/2012 01/10/2012 Completed ONCE, Dosing Weight 68.182, kg, Start date: 01/10/12 11:41:00, Stop date: 01/10/12 11:41:00 Ancef 1 gm, Route: IVPB, ONCE, Dosing 01/10/2012 01/10/2012 Completed Weight 68.182, kg, Start date: 01/10/12 8:02:00, Duration: 1 doses or times, Stop date: 01/10/12 8:02:00 Vital Signs Most recent to oldest [Reference Range]: 1 2 3 Height 167.64 cm (01/08/2012 09:57:00) Temperature Oral [96.4-99.1 DegF] 98.1 DegF (01/08/2012 10:35:00) Systolic Blood Pressure [90-140 mmHg] 141 mmHg *HI* (01/10/2012 13:30:00) 125 mmHg (01/10/2012 13:15:00) 118 mmHg (01/10/2012 13:00:00) Diastolic Blood Pressure [60-90 mmHg] 78 mmHg (01/10/2012 13:30:00) 68 mmHg (01/10/2012 13:15:00) 62 mmHg (01/10/2012 13:00:00) Respiratory Rate [14-20 BRMIN] 21 BRMIN *HI* (01/10/2012 12:00:00) 15 BRMIN (01/10/2012 11:45:00) 16 BRMIN (01/10/2012 11:30:00) Peripheral Pulse Rate [60-100 bpm] 76 bpm (01/10/2012 08:04:00) 80 bpm (01/08/2012 10:35:00) Weight 68.182 kg (01/08/2012 09:57:00) Results CHEMISTRY Most recent to oldest [Reference Range]: 1 Sodium Lvl [135-145 mEq/L] 143 mEq/L (01/08/2012 10:50:00) Potassium Lvl [3.5-5.1 mEq/L] 4.0 mEq/L (01/08/2012 10:50:00) Chloride Lvl [95-109 mEq/L] 104 mEq/L (01/08/2012 10:50:00) CO2 [24-32 mEq/L] 33 mEq/L *HI* (01/08/2012 10:50:00) AGAP [10.0-20.0 mEq/L] 10.0 mEq/L (01/08/2012 10:50:00) Creatinine Lvl [0.5-1.4 mg/dL] 1.1 mg/dL (01/08/2012 10:50:00) eGFR 68 mL/min/1.73m2 1 *NA* (01/08/2012 10:50:00) BUN [7-22 mg/dL] 22 mg/dL (01/08/2012 10:50:00) Glucose Lvl [70-99 mg/dL] 86 mg/dL 2 (01/08/2012 10:50:00) Calcium Lvl [8.5-10.5 mg/dL] 8.6 mg/dL (01/08/2012 10:50:00) 1Result Comment: The eGFR is calculated using [...] values reflect the clinical guidelines of the [employer]. HEMATOLOGY Most recent to oldest [Reference Range]: 1 WBC [3.7-10.4 K/CMM] 13.8 K/CMM *HI* (01/08/2012 10:50:00) RBC [4.70-6.10 M/CMM] 3.98 M/CMM *LOW* (01/08/2012 10:50:00) Hgb [14.0-18.0 g/dL] 14.0 g/dL (01/08/2012 10:50:00) Hct [42.0-54.0 %] 41.6 % *LOW* (01/08/2012 10:50:00) MCV [80.0-94.0 fL] 104.6 fL *HI* (01/08/2012 10:50:00) MCH [27.0-31.0 pg] 35.2 pg *HI* (01/08/2012 10:50:00) MCHC [32.0-36.0 g/dL] 33.6 g/dL (01/08/2012 10:50:00) RDW [11.5-14.5 %] 13.8 % (01/08/2012 10:50:00) Platelet [133-450 K/CMM] 261 K/CMM (01/08/2012 10:50:00) MPV [7.4-10.4 fL] 9.4 fL (01/08/2012 10:50:00) Segs [45.0-75.0 %] 79.1 % *HI* (01/08/2012 10:50:00) Lymphocytes [20.0-40.0 %] 4.3 % *LOW* (01/08/2012 10:50:00) Monocytes [2.0-12.0 %] 11.0 % (01/08/2012 10:50:00) Eosinophils [0.0-4.0 %] 5.5 % *HI* (01/08/2012 10:50:00) Basophils [0.0-1.0 %] 0.1 % (01/08/2012 10:50:00) Segs-Bands # [1.5-8.1 K/CMM] 10.9 K/CMM *HI* (01/08/2012 10:50:00) Lymphocytes # [1.0-5.5 K/CMM] 0.6 K/CMM *LOW* (01/08/2012 10:50:00) Monocytes # [0.0-0.8 K/CMM] 1.5 K/CMM *HI* (01/08/2012 10:50:00) Eosinophils # [0.0-0.5 K/CMM] 0.8 K/CMM *HI* (01/08/2012 10:50:00) Basophils # [0.0-0.2 K/CMM] 0.0 K/CMM (01/08/2012 10:50:00) PT [12.0-14.7 seconds] 12.7 seconds (01/08/2012 10:50:00) INR [0.85-1.17] 0.93 3 (01/08/2012 10:50:00) PTT [22.9-35.8 seconds] 33.2 seconds 4 (01/08/2012 10:50:00) 3Interpretive Data: RECOMMENDED RANGES FOR PROTIME INR: 2.0-3.0 for most medical and surgical thromboembolic states. 2.5-3.5 for artificial heart valves and recurrent embolism. INR SHOULD BE USED ONLY FOR PATIENTS ON STABLE ANTICOAGULANT THERAPY. 4Interpretive Data: Heparin Therapeutic Range: 57 - 92 Seconds
--- OUTSIDE RECORDS SUMMARY | 2018-07-22 11:40 | XMS REPORT | Summary of Care ---
Author Author [facility] Organization [facility] Address Unknown Phone Unavailable Encounter HQ Latoya(JAMEEL) [id number] Date(s): 06/26/15 - 06/26/15 [facility] [address] [place] [address]- [phone] Discharge Disposition: Home Attending Physician: Alberto Ness MD Vital Signs No [...]
--- OUTSIDE RECORDS SUMMARY | 2018-07-22 11:40 | XMS REPORT | Summary of Care ---
Author Organization Unknown Address Unknown Phone Unavailable Encounter HQ Encntr_alias(FIN) [id number] Date(s): 04/28/14 - 04/28/14 [facility] [id number] Discharge Disposition: Home Physician Attending: Alberto Ness MD Physician Admitting: Alberto Ness MD Reason for Visit 592.0 Problem List Condition Effective Dates Status Health Status Informant (Confirmed)1 Active 1This problem was automatically added by [employer] for patients less than 28 days old. Allergies, Adverse Reactions, Alerts Substance Reaction Severity Status NSAIDs Active Medications No data available for this section Medications Administered During Your Visit No data available for this section Immunizations No data available for this section
--- OUTSIDE RECORDS SUMMARY | 2018-07-22 11:40 | XMS REPORT | Summary of Care ---
Author Organization Unknown Address Unknown Phone Unavailable Encounter HQ Encntr_alias(FIN) [id number] Date(s): 03/18/14 - 03/18/14 [facility] [address] Discharge Disposition: Home Physician Attending: Alberto Ness MD Physician_Referring: Alberto Ness MD Reason for Visit RENAL STONE Problem List Condition Effective Dates Status Health [...]
[2018-07-22 15:15] VITALS: BP 118/73
--- NOTE | 2018-07-22 21:06 | Operative Report ---
DATE OF PROCEDURE: 07/22/2018 SURGEON: Iraj Tran MD PROCEDURE: Colonoscopy and polypectomy. REFERRING PHYSICIAN: Dr. Gary Mahajan. INDICATION FOR COLONOSCOPY: Surveillance colonoscopy, personal history of colon polyps. MEDICATION: The patient was done under MAC, please see anesthesiologist's note. PROCEDURE IN DETAIL: With the patient in left lateral decubitus position, flexible fiberoptic Olympus colonoscope was inserted into the rectum with ease and advanced all the way to the cecum. Two polyps were hot biopsied from the cecum and both sides were hemoclipped. There was some scattered diverticulosis pretty much throughout the colon. Otherwise was grossly unremarkable. One polyp was hot biopsied from the rectum. The scope was then retroflexed into the distal rectum and small internal hemorrhoids were noted, none of which was actively bleeding. The scope was then straightened out, it was subsequently withdrawn. The patient tolerated the procedure well. IMPRESSION: 1. Diverticulosis. 2. Cecal polyps x2, hot biopsied, both sides hemoclipped. 3. Rectal polyp x1, hot biopsied. 4. Internal hemorrhoids, none actively bleeding. PLAN: Follow up histology. Initiate high-fiber, low-fat diet. Initiate high-fiber supplement. The patient might benefit from a followup colonoscopy in 3 to 5 years. Iraj Tran MD [facility] /[id number] cc: Gary Mahajan.
== END | disposition home or self-care (01) ==
LOC: OR 11:36
PROVIDERS: ATTEND Internal Medicine Gastroenterology
DX: Z12.11 Encounter for screening for malignant neoplasm of colon (principal); D12.7 Benign neoplasm of rectosigmoid junction; D12.0 Benign neoplasm of cecum; Z86.010 Personal history of colon polyps; Z88.6 Allergy status to analgesic agent; Z88.8 Allergy status to other drugs, medicaments and biological substances; I10 Essential (primary) hypertension; Z68.25 Body mass index [BMI] 25.0-25.9, adult; K57.30 Diverticulosis of large intestine without perforation or abscess without bleeding; K64.8 Other hemorrhoids; Z01.810 Encounter for preprocedural cardiovascular examination; Z01.812 Encounter for preprocedural laboratory examination
CPT/HCPCS: 36415; 45384; 85025; 88305; 93005; J1610; J1980; J2001; J2250; J2370; J2704; 45378

== ENCOUNTER 2018-07-23 00:47 | Emergency (ER) | payer MEDICARE ==
[~2018-07-23] VITALS: Ht 167.6 cm; Wt 68.0 kg
[~2018-07-23 00:47] MED LIST changes: -FENTANYL CITRATE/PF 100MCG/2 ML INJ ONE; -GLUCAGON FOR INJ 1 MG VIAL ONE; -HYOSCYAMINE SULFATE 0.5 MG/ML INJ ONE; -LIDOCAINE HCL 2% LOCAL INJ 5 ML SDV VIAL INJ ONE; -MIDAZOLAM HCL 2 MG/2 ML VIAL ONE; -PHENYLEPHRINE HCL 1% 10 MG/ML VIAL ONE; -PROPOFOL IV EMULSION 10 MG/ML 50 ML VIAL ONE
[2018-07-23 02:05] LABS: BASOPHILS % 0.2 % (0.0-1.0); EOSINOPHILS # (AUTO) 0.1 (0.0-0.4); EOSINOPHILS % 0.4 % (0.0-6.0); HEMOGLOBIN 14.7 g/dL (14.0-18.0); LYMPHOCYTES # (AUTO) 0.7 (1.0-3.2); LYMPHOCYTES % 4.3 % (18.0-39.1); MEAN CORPUSCULAR HGB CONC 32.7 g/dL (31-35); MONOCYTES # (AUTO) 0.9 (0.2-0.8); MONOCYTES % 5.5 % (4.4-11.3); NEUTROPHILS # (AUTO) 14.7 (2.1-6.9); NEUTROPHILS % 88.5 % (38.7-80.0); PLATELET COUNT 310 x10e3/uL (140-360); RED BLOOD COUNT 4.59 x10e6/uL (4.3-5.7); RED CELL DISTRIBUTION WIDTH 14.6 % (11.7-14.4)
[2018-07-23 02:19] LABS: ALANINE AMINOTRANSFERASE 21 IU/L (0-55); ALBUMIN 3.7 g/dL (3.5-5.0); ALBUMIN/GLOBULIN RATIO 0.9 (0.8-2.0); ALKALINE PHOSPHATASE 55 IU/L (40-150); ANION GAP 16.1 mmol/L (8-16); BLOOD UREA NITROGEN 22 mg/dL (7-26); BUN/CREATININE RATIO 19 (6-25); CALCIUM 9.5 mg/dL (8.4-10.2); CARBON DIOXIDE 21 mmol/L (22-29); CHLORIDE 101 mmol/L (98-107); CREATININE, SERUM 1.17 mg/dL (0.72-1.25); EST GLOMERULAR FILTRATION RATE > 60 ML/MIN (60-); GLUCOSE 115 mg/dL (74-118); POTASSIUM 4.1 mmol/L (3.5-5.1); SODIUM 134 mmol/L (136-145)
[2018-07-23 02:44] LABS: CLARITY,URINE CLEAR (CLEAR); COLOR,URINE YELLOW (YELLOW); LEUKOCYTE ESTERASE ,URINE NEGATIVE (NEGATIVE); NITRITE,URINE NEGATIVE (NEGATIVE)
[2018-07-23 02:45] LABS: BILIRUBIN,URINE NEGATIVE (NEGATIVE); KETONES,URINE NEGATIVE (NEGATIVE); PROTEIN,URINE DIPSTICK NEGATIVE (NEGATIVE); URINE UROBILINOGEN 0.2 mg/dL (0.2 - 1)
[2018-07-23 02:47] LABS: BACTERIA,URINE FEW /HPF; EPITHELIAL CELLS,URINE FEW /LPF; WBC,URINE (MAN) 0-5 /HPF (0-5)
[2018-07-23 03:14] VITALS: BP 143/88
== END 2018-07-23 03:27 | disposition home or self-care (01) ==
LOC: ER 00:47
DX: R33.9 Retention of urine, unspecified (principal); R33.0 Drug induced retention of urine; N40.1 Benign prostatic hyperplasia with lower urinary tract symptoms
CPT/HCPCS: 36415; 51700; 80053; 81001; 85025; 99284

== ENCOUNTER 2018-10-07 12:15 | Inpatient (IN) | payer MEDICARE ==
[~2018-10-07] VITALS: Ht 167.6 cm; Wt 68.0 kg
--- OUTSIDE RECORDS SUMMARY | 2018-10-07 12:19 | XMS REPORT | Continuity of Care Document ---
Author Author [employer] Address Unknown Phone Unavailable Care Team Providers Care Hospitality Team Member Name Role Phone [employer] Information [employer] Unavailable Unavailable Problems Problem Status Onset Date Classification Date Reported Comments Source XRAY Active 06/22/2018 [facility] KIDNEY Active 07/11/2016 [facility] 592.0 Active 04/28/2014 [facility] UNK Active 04/28/2014 [facility] 592.1/592.0 Active 04/28/2014 [facility] RENAL STONE Active 03/11/2014 [facility] 592.0,592.1/KSTONE PROTOCOL NO IV AND Active 02/12/2013 [facility] STONE 592.0 592.1 / CPT [id number] Active 01/06/2012 [facility] Newborn1 Resolved 03/07/2010 Problem 08/12/2018 This problem was automatically added by [employer] for patients less than 28 days old. [facility] [place] Gout Active Problem 08/12/2018 [facility] [place] Hypertension Active Problem 08/12/2018 [facility] [place] Renal stones Resolved Problem 08/12/2018 [facility] [place] Ureteral stone Active Problem 08/12/2018 [facility] [place] CALCULUS OF KIDNEY Active [facility] CALCULUS OF URETER Active [facility] +PPD Active [facility] NONSP REVA SKN TEST WO TB Active [facility] PNEUMONIA Active [facility] PNEUMONIA, ORGANISM NOS Active [facility] M25.521 Active [facility] PAIN IN RIGHT ELBOW Active [facility] COUGH Active [facility] COUGH Active [facility] KUB Active [facility] CALCULUS OF KIDNEY Active [facility] CHEST PAIN, UNSPECIFIED Active [facility] PAIN IN RIGHT HAND Active [facility] PAIN IN LEFT HAND Active [facility] Medications Medication Details Route Status Patient Instructions Ordering Provider Order Date Source Dutasteride 0.5 MG Oral Capsule [Avodart] 0.5 mg=1 cap, PO, Daily, # 90 cap, 1 Refill(s), Pharmacy: [facility] [id number] Active 08/10/2018 [facility] tamsulosin 0.4 mg oral capsule 0.4 mg=1 cap, PO, Daily, # 90 cap, 1 Refill(s), Pharmacy: [facility] [id number] Active 08/10/2018 [facility] tamsulosin 0.4 mg oral capsule 0.4 mg=1 cap, PO, Daily, 0 Refill(s) Active 07/27/2018 [facility] Alendronic acid 10 MG Oral Tablet 10 mg=1 tab, PO, Daily, 0 Refill(s) Active 07/27/2018 [facility] methotrexate 2.5 mg oral tablet PO, 0 Refill(s) Active 07/27/2018 [facility] Nitrofurantoin 100 mg, PO, BID, # 14 cap, 0 Refill(s) Active 07/27/2018 [facility] Vitamin D3 0 Refill(s) Active 07/27/2018 [facility] Silodosin (Rapaflo) 4 Mg Capsule, 4 Mg Oral Daily Active 07/14/2018 [facility] Dutasteride/Tamsulosin Hcl (Licha 0.5-0.4 Mg Capsule) 1 Each Cpmp.24hr, 1 Tab Oral Daily Active 04/18/2015 [facility] Folic Acid 1 Mg Tablet, 1 Tab Oral Twice A Day Active 04/18/2015 [facility] Tocilizumab (Actemra) 200 Mg/10 Ml Vial, 1 1 Mothly Active 04/18/2015 [facility] Pyridium 100 mg oral tablet 100 mg=1 tab, PO, TID, # 21 tab, 0 Refill(s) Active 05/18/2014 [facility] Ciprofloxacin 500 MG Oral Tablet [Cipro] 500 mg=1 tab, PO, Q12H, # 14 tab, 0 Refill(s) Active 05/18/2014 [facility] Hydromorphone 0.3 mg, Route: IVP, Q3H, Dosing Weight 68.182, kg, PRN Pain Score 4-6, Start date: 05/18/14 10:06:00, Duration: 30 day, Stop date: 06/17/14 10:05:00 Inactive 05/18/2014 [facility] Ciprofloxacin 2 MG/ML Injectable Solution [Cipro] 400 mg, Route: IVPB, ONCE, Dosing Weight 68.182, kg, Start date: 05/18/14 9:25:00, Stop date: 05/18/14 9:25:00 Inactive 05/18/2014 [facility] Calcium Chloride 0.0014 MEQ/ML / Potassium Chloride 0.004 MEQ/ML / Sodium Chloride 0.103 MEQ/ML / Sodium Lactate 0.028 MEQ/ML Injectable Solution 1,000 mL, Rate: 25 ml/hr, Infuse over: 40 hr, Route: IV, Dosing Weight 68.182 kg, Total Volume: 1,000, Start date: 05/18/14 8:20:00, Duration: 30 day, Stop date: 06/17/14 8:19:00 Inactive 05/18/2014 [facility] ondansetron 4 mg, 2 mL, Route: IVP, Drug form: INJ, ONCE, Dosing Weight 68.182, kg, PRN Nausea & Vomiting, Start date: 01/10/12 12:51:00 IVP No Longer Active [facility] 01/10/2012 [facility] acetaminophen-hydrocodone 325 mg-5 mg oral tablet 2 tab, Route: PO, Drug Form: TAB, Dosing Weight 68.182, kg, Q4H, PRN Pain Score 4-6, Start date: 01/10/12 12:51:00, Duration: 30 day, Stop date: 02/09/12 12:50:00 PO No Longer Active [facility] 01/10/2012 [facility] niCARdipine 0.25 mg, 0.1 mL, Route: IVP, Drug form: INJ, Q5Min, Dosing Weight 68.182, kg, PRN Elevated BP, Start date: 01/10/12 12:51:00, Duration: 4 doses or times, Stop date: Limited # of times IVP No Longer Active [facility] 01/10/2012 [facility] fentanyl 25 microgram, 0.5 mL, Route: IVP, Drug form: INJ, Q5Min, Dosing Weight 68.182, kg, PRN Pain Score 4-6, Start date: 01/10/12 12:51:00, Duration: 4 doses or times, Stop date: Limited # of times IVP No Longer Active [facility] 01/10/2012 [facility] metoprolol 1 mg, 1 mL, Route: IVP, Drug form: INJ, Q5Min, Dosing Weight 68.182, kg, PRN Elevated BP, Start date: 01/10/12 12:51:00, Duration: 5 doses or times, Stop date: Limited # of times IVP No Longer Active [facility] 01/10/2012 [facility] labetalol 5 mg, 1 mL, Route: IVP, Drug form: INJ, Q5Min, Dosing Weight 68.182, kg, PRN Elevated BP, Start date: 01/10/12 12:51:00, Duration: 5 doses or times, Stop date: Limited # of times IVP No Longer Active [facility] 01/10/2012 [facility] hydrALAZINE 5 mg, 0.25 mL, Route: IVP, Drug form: INJ, Q5Min, Dosing Weight 68.182, kg, PRN Elevated BP, Start date: 01/10/12 12:51:00, Duration: 4 doses or times, Stop date: Limited # of times IVP No Longer Active [facility] 01/10/2012 [facility] Lactated Ringers Injection IV 1,000 mL 1,000 mL, Rate: 50 ml/hr, Infuse over: 20 hr, Route: IV, kg, Total Volume: 1,000, Start date: 01/10/12 12:51:00, Duration: 30 day, Stop date: 02/09/12 12:50:00 IV No Longer Active [facility] 01/10/2012 [facility] naloxone 0.04 mg, 0.04 mL, Route: IVP, Drug form: INJ, Q2MIN, Dosing Weight 68.182, kg, PRN Narcotic Reversal, Start date: 01/10/12 12:51:00, Duration: 8 doses or times, Stop date: Limited # of times IVP No Longer Active [facility] 01/10/2012 [facility] flumazenil 0.2 mg, 2 mL, Route: IVP, Drug form: INJ, PRN, Dosing Weight 68.182, kg, PRN Benzodiazepine Reversal, Initial dose, Start date: 01/10/12 12:51:00, Duration: 30 day, Stop date: 02/09/12 11:50:00 IVP No Longer Active [facility] 01/10/2012 [facility] meperidine 12.5 mg, 0.25 mL, Route: IVP, Drug form: INJ, Q30Min, Dosing Weight 68.182, kg, PRN Other -See Comment, For shivering, Start date: 01/10/12 12:51:00, Duration: 2 doses or times, Stop date: Limited # of times IVP No Longer Active [facility] 01/10/2012 [facility] morphine Sulfate 2 mg, 1 mL, Route: IVP, Drug form: INJ, Q5Min, Dosing Weight 68.182, kg, PRN Pain Score 4-6, Start date: 01/10/12 12:51:00, Duration: 8 doses or times, Stop date: Limited # of times IVP No Longer Active [facility] 01/10/2012 [facility] hydromorphone 0.5 mg, 0.5 mL, Route: IVP, Drug form: SOLN, Q5Min, Dosing Weight 68.182, kg, PRN Pain Score 4-6, Start date: 01/10/12 12:51:00, Duration: 5 doses or times, Stop date: Limited # of times IVP No Longer Active [facility] 01/10/2012 [facility] Ditropan 5 mg, Route: PO, Drug form: TAB, ONCE, Dosing Weight 68.182, kg, Start date: 01/10/12 11:41:00, Stop date: 01/10/12 11:41:00 PO No Longer Active [facility] 01/10/2012 [facility] Pyridium 200 mg, Route: PO, Drug form: TAB, ONCE, Dosing Weight 68.182, kg, Start date: 01/10/12 11:41:00, Stop date: 01/10/12 11:41:00 PO No Longer Active [facility] 01/10/2012 [facility] gentamicin 120 mg, Route: IVPB, ONCE, Dosing Weight 68.182, kg, Start date: 01/10/12 8:02:00, Stop date: 01/10/12 8:02:00 IVPB No Longer Active [facility] 01/10/2012 [facility] Ancef 1 gm, Route: IVPB, ONCE, Dosing Weight 68.182, kg, Start date: 01/10/12 8:02:00, Duration: 1 doses or times, Stop date: 01/10/12 8:02:00 IVPB No Longer Active [facility] 01/10/2012 [facility] Lactated Ringers Injection IV 1000 mL 1,000 mL, Rate: 25 ml/hr, Infuse over: 40 hr, Route: IV, Dosing Weight 68.182 kg, Total Volume: 1,000, Start date: 01/10/12 7:46:00, Duration: 30 day, Stop date: 02/09/12 7:45:00 IV No Longer Active [facility] 01/10/2012 [facility] folic acid 1 mg oral tablet 1 mg, 1 tab, PO, Daily, 30 tab, Substitution Allowed, TAB PO Active 01/08/2012 [facility] allopurinol 100 mg oral tablet 100 mg, 1 tab, PO, BID, 180 tab, Substitution Allowed, TAB PO Active 01/08/2012 [facility] amLODipine 10 mg oral tablet 10 mg, 1 tab, PO, Daily, 30 tab, Substitution Allowed, TAB PO Active 01/08/2012 [facility] prednisoLONE 5 mg oral tablet 5 mg, 1 tab, PO, Daily, 7 tab, Substitution Allowed, TAB PO Active 01/08/2012 [facility] Advair Diskus 250 mcg-50 mcg inhalation powder 1 puff, INHALATION, BID, 28 ea, Substitution Allowed, Maintenance, PWDR INHALATION Active 01/08/2012 [facility] Allopurinol 100 Mg Tablet Daily Active [facility] Amlodipine Besylate 10 Mg Tablet Daily Active [facility] Cholecalciferol (Vitamin D3) (Vitamin D) 400 Unit Capsule Daily Active [facility] Folic Acid 1 Mg Tablet Daily Active [facility] Methotrexate Sodium (Methotrexate) 2.5 Mg Tablet Daily Active [facility] Prednisolone (Millipred) 5 Mg Tablet Daily Active [facility] Allergies, Adverse Reactions, Alerts Substance Category Reaction Severity Reaction type Status Date Reported Comments Source NSAIDS (Non-Steroidal Anti-Inflamma Severe Allergy to Substance Active 12/27/2011 [facility] Aspirin Unknown Allergy to Substance Active 07/23/2018 [facility] NSAIDs Assertion Drug allergy Active [facility] Immunizations No Data Provided for This Section Results Order Name Results Value Reference Range Date Interpretation Comments Source Urine color determination YELLOW YELLOW 07/23/2018 [facility] Urine clarity CLEAR CLEAR 07/23/2018 [facility] Specific gravity of Urine by Test strip 1.005 1.010 - 1.025 07/23/2018 [facility] Urine pH measurement by automated test strip 5 5 - 7 07/23/2018 [facility] Urine leukocyte esterase detection by dipstick NEGATIVE NEGATIVE 07/23/2018 [facility] Urine nitrite detection NEGATIVE NEGATIVE 07/23/2018 [facility] Urine protein measurement by test strip (mass/volume) NEGATIVE NEGATIVE 07/23/2018 [facility] Urine glucose detection NEGATIVE NEGATIVE 07/23/2018 [facility] Urine ketones detection by automated test strip NEGATIVE NEGATIVE 07/23/2018 [facility] Urine urobilinogen measurement by test strip (mass/volume) 0.2 0.2 - 1 07/23/2018 [facility] Urine total bilirubin measurement (mass/volume) NEGATIVE NEGATIVE 07/23/2018 [facility] Urine erythrocytes detection 3+ NEGATIVE 07/23/2018 [facility] Automated urine sediment leukocyte count by microscopy (number/high power field) 0-5 0 - 5 07/23/2018 [facility] Erythrocytes detection in urine sediment by light microscopy 11-20 0 - 5 07/23/2018 [facility] Bacteria detection in urine sediment by light microscopy FEW NONE 07/23/2018 [facility] Epithelial cells detection in urine sediment by light microscopy FEW NONE 07/23/2018 [facility] Blood leukocytes automated count (number/volume) 16.61 4.8 - 10.8 07/23/2018 [facility] Blood erythrocytes automated count (number/volume) 4.59 4.3 - 5.7 07/23/2018 [facility] Blood hemoglobin measurement (moles/volume) 14.7 14.0 - 18.0 07/23/2018 [facility] Automated blood hematocrit (volume fraction) 45.0 38.2 - 49.6 07/23/2018 [facility] Automated erythrocyte mean corpuscular volume 98.0 81 - 99 07/23/2018 [facility] Automated erythrocyte mean corpuscular hemoglobin (mass per erythrocyte) 32.0 28 - 32 07/23/2018 [facility] Automated erythrocyte mean corpuscular hemoglobin concentration measurement (mass/volume) 32.7 31 - 35 07/23/2018 [facility] RDW BldCo-Rto 14.6 11.7 - 14.4 07/23/2018 [facility] Automated blood platelet count (count/volume) 310 140 - 360 07/23/2018 [facility] Automated blood segmented neutrophil count as percentage of total leukocytes 88.5 38.7 - 80.0 07/23/2018 [facility] Automated blood lymphocyte count as percentage ot total leukocytes 4.3 18.0 - 39.1 07/23/2018 [facility] Automated blood monocyte count as percentage of total leukocytes 5.5 4.4 - 11.3 07/23/2018 [facility] Automated blood eosinophil count as percentage of total leukocytes 0.4 0.0 - 6.0 07/23/2018 [facility] Automated blood basophil count as percentage of total leukocytes 0.2 0.0 - 1.0 07/23/2018 [facility] IM GRANULOCYTES % 1.1 0.0 - 1.0 07/23/2018 [facility] Automated blood neutrophil count 14.7 2.1 - 6.9 07/23/2018 [facility] Blood lymphocytes count (number/volume) 0.7 1.0 - 3.2 07/23/2018 [facility] Blood monocytes automated count (number/volume) 0.9 0.2 - 0.8 07/23/2018 [facility] Automated blood eosinophil count 0.1 0.0 - 0.4 07/23/2018 [facility] Automated blood basophil count (count/volume) 0.0 0.0 - 0.1 07/23/2018 [facility] Absolute Immature Granulocyte (auto 0.19 0 - 0.1 07/23/2018 [facility] Serum or plasma sodium measurement (moles/volume) 134 136 - 145 07/23/2018 [facility] Serum or plasma potassium measurement (moles/volume) 4.1 3.5 - 5.1 07/23/2018 [facility] Serum or plasma chloride measurement (moles/volume) 101 98 - 107 07/23/2018 [facility] Serum or plasma carbon dioxide, total measurement (moles/volume) 21 22 - 29 07/23/2018 [facility] Serum or plasma anion gap 16.1 8 - 16 07/23/2018 [facility] Serum or plasma urea nitrogen measurement (mass/volume) 22 7 - 26 07/23/2018 [facility] Serum or plasma creatinine measurement (mass/volume) 1.17 0.72 - 1.25 07/23/2018 [facility] Serum or plasma urea nitrogen/creatinine mass ratio 19 6 - 25 07/23/2018 [facility] Estimated glomerular filtration rate (GFR) determination > 60 60 07/23/2018 [facility] Glucose measurement 115 74 - 118 07/23/2018 [facility] Serum or plasma calcium measurement (mass/volume) 9.5 8.4 - 10.2 07/23/2018 [facility] Serum or plasma total bilirubin measurement (mass/volume) 0.9 0.2 - 1.2 07/23/2018 [facility] Aspartate Amino Transf (AST/SGOT) 25 5 - 34 07/23/2018 [facility] Serum or plasma alanine aminotransferase measurement (enzymatic activity/volume) 21 0 - 55 07/23/2018 [facility] Serum or plasma protein measurement (mass/volume) 8.0 6.5 - 8.1 07/23/2018 [facility] Serum or plasma albumin measurement (mass/volume) 3.7 3.5 - 5.0 07/23/2018 [facility] Plasma globulin measurement (mass/volume) 4.3 2.3 - 3.5 07/23/2018 [facility] Serum or plasma albumin/globulin mass ratio 0.9 0.8 - 2.0 07/23/2018 [facility] Serum or plasma alkaline phosphatase measurement (enzymatic activity/volume) 55 40 - 150 07/23/2018 [facility] CHEM PANEL BUN 24 7 - 22 05/11/2014 [facility] CHEM PANEL eGFR 67 05/11/2014 <sup>1</sup>Result Comment: The eGFR is calculated using the CKD-EPI formula. In most young, healthy individuals the eGFR will be >90 mL/min/1.73m2. The eGFR declines with age. An eGFR of 60-89 may be normal in some populations, particularly the elderly, for whom the CKD-EPI formula has not been extensively validated. Use of the eGFR is not recommended in the following populations:& lt;br/>
Individuals with unstable creatinine concentrations, including patients [...] should be multiplied by the estimated BMI. [facility] CHEM PANEL Chloride Lvl 107 95 - 109 05/11/2014 [facility] CHEM PANEL CO2 31 24 - 32 05/11/2014 [facility] CHEM PANEL Potassium Lvl 4.3 3.5 - 5.1 05/11/2014 [facility] CHEM PANEL Sodium Lvl 141 135 - 145 05/11/2014 [facility] CHEM PANEL Calcium Lvl 9.0 8.5 - 10.5 05/11/2014 [facility] CHEM PANEL Creatinine Lvl 1.1 0.5 - 1.4 05/11/2014 [facility] CHEM PANEL Glucose Lvl 107 70 - 99 05/11/2014 <sup>2</sup>Interpretive Data: Adult reference range values reflect the clinical guidelines
of the [place] [employer]. [facility] CHEM PANEL AGAP 7.3 10.0 - 20.0 05/11/[address] [facility] PT 13.1 12.0 - 14.7 05/11/[address] [facility] PTT 27.3 22.9 - 35.8 05/11/2014 <sup>5</sup>Interpretive Data: Heparin Therapeutic Range: 57 - [address] [facility] INR 0.99 0.85 - 1.17 05/11/2014 <sup>4</sup>Interpretive Data: RECOMMENDED RANGES FOR PROTIME INR:
2.0-3.0 for most medical and surgical thromboembolic states.
2.5-3.5 for artificial heart valves and recurrent embolism.

INR SHOULD BE USED ONLY FOR PATIENTS ON STABLE ANTICOAGULANT THERAPY. [facility] MCHC 33.0 32.0 - 36.0 05/11/[address] [facility] MPV 11.0 7.4 - 10.4 05/11/[address] [facility] Platelet 164 133 - 450 05/11/[address] [facility] RBC 4.33 4.70 - 6.10 05/11/[address] [facility] MCH 35.4 27.0 - 31.0 05/11/[address] [facility] RDW 13.5 11.5 - 14.5 05/11/[address] [facility] MCV 107.2 80.0 - 94.0 05/11/[address] [facility] Hct 46.4 42.0 - 54.0 05/11/[address] [facility] Hgb 15.3 14.0 - 18.0 05/11/[address] [facility] WBC 8.0 3.7 - 10.4 05/11/[address] [facility] Monocytes # 1.0 0.0 - 0.8 05/11/[address] [facility] Eosinophils # 0.8 0.0 - 0.5 05/11/[address] [facility] Lymphocytes # 0.9 1.0 - 5.5 05/11/[address] [facility] Macrocyte 2+ *ABN* (05/11/14 12:13 PM) None Seen 05/11/[address] [facility] Eosinophils 10.1 0.0 - 4.0 05/11/[address] [facility] Segs-Bands # 5.2 1.5 - 8.1 05/11/[address] [facility] Monocytes 12.5 2.0 - 12.0 05/11/[address] [facility] Basophils 0.6 0.0 - 1.0 05/11/2014 [facility] HEMATOLOGY Lymphocytes 11.9 20.0 - 40.0 05/11/2014 [facility] HEMATOLOGY Segs 64.9 45.0 - 75.0 05/11/2014 [facility] URINE AND STOOL UA Leuk Est Negative (05/11/14 12:13 PM) Negative 05/11/2014 [facility] URINE AND STOOL UA RBC 2 0 - 2 05/11/2014 [facility] URINE AND STOOL UA WBC 1 0 - 5 05/11/2014 [facility] URINE AND STOOL UA Mucus Few /LPF None Seen /LPF 05/11/2014 [facility] URINE AND STOOL UA Sperm None Seen /HPF None Seen /HPF 05/11/2014 <sup>3</sup>Result Comment: called to nazario alves [facility] URINE AND STOOL UA Urobilinogen <=1.0 mg/dL 0.1 - 1.0 05/11/2014 [facility] URINE AND STOOL UA Sq Epi None Seen 05/11/2014 [facility] URINE AND STOOL UA Blood Negative (05/11/14 12:13 PM) Negative 05/11/2014 [facility] URINE AND STOOL UA Nitrite Negative (05/11/14 12:13 PM) Negative 05/11/2014 [facility] URINE AND STOOL UA Ketones Negative mg/dL Negative mg/dL 05/11/2014 [facility] URINE AND STOOL UA Bili Negative *NA* (05/11/14 12:13 PM) Negative 05/11/2014 [facility] URINE AND STOOL UA Protein Negative mg/dL Negative mg/dL 05/11/2014 [facility] URINE AND STOOL UA pH 5.0 5.0 - 8.0 05/11/2014 [facility] URINE AND STOOL UA Spec Grav 1.020 <=1.030 05/11/2014 [facility] URINE AND STOOL UA Glucose Negative mg/dL Negative mg/dL 05/11/2014 [facility] URINE AND STOOL UA Turbidity Clear (05/11/14 12:13 PM) Clear 05/11/2014 [facility] URINE AND STOOL UA Color Yellow *NA* (05/11/14 12:13 PM) Yellow 05/11/2014 [facility] CHEMISTRY AGAP 10.0 10.0 - 20.0 01/08/2012 Normal [facility] CHEMISTRY eGFR 68 01/08/2012 NA <sup>1</sup>Result Comment: The eGFR is calculated using the CKD-EPI formula. In most young, healthy individuals the eGFR will be >90 mL/min/1.73m2. The eGFR declines with age. An eGFR of 60-89 may be normal in some populations, particularly the elderly, for whom the CKD-EPI formula has not been extensively validated. Use of the eGFR is not recommended in the following populations:& lt;br/>
Individuals with unstable creatinine concentrations, including patients [...] should be multiplied by the estimated BMI. [facility] CHEMISTRY BUN 22 7 - 22 01/08/2012 Normal [facility] CHEMISTRY Creatinine Lvl 1.1 0.5 - 1.4 01/08/2012 Normal [facility] CHEMISTRY Glucose Lvl 86 70 - 99 01/08/2012 Normal <sup>2</sup>Interpretive Data: Adult reference range values reflect the clinical guidelines
of the [place] [employer]. [facility] CHEMISTRY Calcium Lvl 8.6 8.5 - 10.5 01/08/2012 Normal [facility] CHEMISTRY CO2 33 24 - 32 01/08/2012 [facility] CHEMISTRY Potassium Lvl 4.0 3.5 - 5.1 01/08/2012 Normal [facility] CHEMISTRY Chloride Lvl 104 95 - 109 01/08/2012 Normal [facility] CHEMISTRY Sodium Lvl 143 135 - 145 01/08/2012 Normal [facility] HEMATOLOGY Lymphocytes 4.3 20.0 - 40.0 01/08/2012 LOW [facility] HEMATOLOGY Segs 79.1 45.0 - 75.0 01/08/2012 [facility] HEMATOLOGY Segs-Bands # 10.9 1.5 - 8.1 01/08/2012 [facility] HEMATOLOGY Eosinophils 5.5 0.0 - 4.0 01/08/2012 [facility] HEMATOLOGY Monocytes 11.0 2.0 - 12.0 01/08/2012 Normal [facility] HEMATOLOGY Basophils 0.1 0.0 - 1.0 01/08/2012 Normal [facility] HEMATOLOGY Basophils # 0.0 0.0 - 0.2 01/08/2012 Normal [facility] HEMATOLOGY Monocytes # 1.5 0.0 - 0.8 01/08/2012 [facility] HEMATOLOGY Lymphocytes # 0.6 1.0 - 5.5 01/08/2012 [facility] HEMATOLOGY Eosinophils # 0.8 0.0 - 0.5 01/08/2012 [facility] HEMATOLOGY PTT 33.2 22.9 - 35.8 01/08/2012 Normal <sup>4</sup>Interpretive Data: Heparin Therapeutic Range: 57 - [address] [facility] INR 0.93 0.85 - 1.17 01/08/2012 Normal <sup>3</sup>Interpretive Data: RECOMMENDED RANGES FOR PROTIME INR:
2.0-3.0 for most medical and surgical thromboembolic states.
2.5-3.5 for artificial heart valves and recurrent embolism.

INR SHOULD BE USED ONLY FOR PATIENTS ON STABLE ANTICOAGULANT THERAPY. [facility] PT 12.7 12.0 - 14.7 01/08/[address] [facility] RBC 3.98 4.70 - 6.10 01/08/2012 LOW [facility] HEMATOLOGY WBC 13.8 3.7 - 10.4 01/08/2012 [facility] HEMATOLOGY MCH 35.2 27.0 - 31.0 01/08/2012 [facility] HEMATOLOGY MCV 104.6 80.0 - 94.0 01/08/2012 [facility] RDW 13.8 11.5 - 14.5 01/08/[address] [facility] MCHC 33.6 32.0 - 36.0 01/08/[address] [facility] Hgb 14.0 14.0 - 18.0 01/08/2012 Normal [facility] HEMATOLOGY Hct 41.6 42.0 - 54.0 01/08/2012 LOW [facility] HEMATOLOGY Platelet 261 133 - 450 01/08/2012 Normal [facility] HEMATOLOGY MPV 9.4 7.4 - 10.4 01/08/2012 Normal [facility] Pathology Reports No Data Provided for This Section Diagnostic Reports Report Value Date Source Hand 2 views Bilateral DX Hand [...] nonspecific inflammatory arthritis such as rheumatoid : [id number] 06/22/2018 [facility] Chest 2 views DX Patient Name: NATASHA CORDERO : 1940; Age: 77 years y/o Male MR: [id number] * CHEST, 2 views HISTORY: - R07.9 [...] suggestive of chronic obstructive pulmonary disease. : [id number] 06/22/2018 [facility] Abdomen AP DX KUB: The low pelvis is not included. The renal shadows are obscured by bowel content. There is a 2 mm density overlying the lower pole of the left kidney. There are no other visible urinary tract alden culi. There is moderate fecal material throughout the colon. The abdominal gas pattern is otherwise normal. There is no significant change compared to 06/26/2015. [id number] 07/11/2016 [facility] Sinus wo contrast CT EXAM: SINUS CT WITHOUT CONTRAST DATE: 09/01/2015 9:40 AM CDT CLINICAL INDICATION: Nasal polyposis. TECHNIQUE: Thin section axial images are obtained from skull base through vertex ([place]) without IV contrast. Axial, sagittal, and coronal [...] mucosal thickening with patent postoperative drainage pathways. [place] drainage pathways are occluded. Nasal airway: Slight S-shaped septal deviation without spurring. Middle lower turbinates are hypertrophic with small polyps. No large inflammatory polyp identified. Mastoids: Clear Soft tissues: Unremarkable IMPRESSION: Sinonasal polyposis with multifocal paranasal sinus mucosal inflammation and drainage obstruction, but no air-fluid level or destructive lesion. Findings are stable to minimally improved compared to the 05/08/2009 CT. 09/01/2015 DANIA Lino Abdomen AP DX Clinical Indication: n20.0 renal stone; Comparison: 06/20/2014 Report: see impression IMPRESSION: No urinary tract calculus is identified radiographically. Arterial vascular calcifications and phleboliths are again noted. Degenerative changes of the lumbar spine. Bowel gas pattern normal. SL: [id number] 06/26/2015 [facility] Elbow 3 views DX Examination: Right elbow, [...] with large joint effusion. SL: 16 01/24/2015 [facility] Chest 2 views DX Examination: Chest x-ray, 2 views History: cough Comparison: 04/23/2013 Findings: Cardiac silhouette is normal in size. Emphysematous changes of the lungs are seen. No pleural effusion or pneumothorax is seen. No focal consolidation is noted. The osseous structures are without focal abnormality. IMPRESSION: COPD without acute disease SL: 08/26/2014 [facility] Abdomen AP DX HISTORY: Urinary tract calculi. Abdomen one view. COMPARISON: 05/18/2014. Left ureteral stent no longer present. Left internal iliac calcific atherosclerotic plaque, as before. Few pelvic phleboliths. No urinary tract calculus is evident, otherwise. SL:13 06/20/2014 [facility] Renal pyelogram retrograde DX Examination: Retrograde pyelogram, 6 views History: Lt stone/fluoro time=[id number]/Dose=[id number]/Cysto Room Comparison: None. Findings: Multiple intraoperative fluoroscopic views from a retrograde pyelogram are submitted for interpretation. The left ureter was cannulated. Contrast in the distal segment of the left ureter is seen. Left-sided ureteral stent is subsequently placed. SL: 16 05/18/2014 [facility] Abdomen AP view KUB: The renal shadows [...] seen without acute osseous abnormalities. SL:13 05/18/2014 [facility] Chest 2 views Examination: Chest x-ray, 2 views History: pneumonia Comparison: 03/25/2012 Findings: Emphysematous changes throughout the lungs are again seen. There is no consolidation or congestion. No pleural effusion or pneumothorax is seen. The cardiac silhouette is normal in size. The osseous structures are stable. IMPRESSION: Stable exam of the chest without acute disease. SL: 13 04/23/2013 [facility] Renal Stone CT NONCONTRAST CT UROGRAM: TECHNIQUE: [...] complex cysts. 4. Prostate enlargement. SL:13 02/18/2013 [facility] Consultation Notes No Data Provided for This Section Discharge Summaries No Data Provided for This Section History and Physicals No Data Provided for This Section Vital Signs Vital Sign Value Date Comments Source Weight 68.636 08/10/2018 [facility] Height 165.1 cm 08/10/2018 [facility] BMI Calculated 25.18 08/10/2018 [facility] Diastolic (mm Hg) 72 05/18/2014 [facility] Systolic (mm Hg) 138 05/18/2014 [facility] Respitory Rate 14 05/18/2014 [facility] Systolic (mm Hg) 128 05/18/2014 [facility] Diastolic (mm Hg) 72 05/18/2014 [facility] Respitory Rate 20 05/18/2014 [facility] Respitory Rate 16 05/18/2014 [facility] Systolic (mm Hg) 117 05/18/2014 [facility] Diastolic (mm Hg) 62 05/18/2014 [facility] Height 165.1 cm 05/11/2014 [facility] Weight 68.182 05/11/2014 [facility] BMI Calculated 25.01 05/11/2014 [facility] Heart Rate 72 05/11/2014 [facility] Temperature Oral (F) 97.4 F 05/11/2014 [facility] Diastolic (mm Hg) 78 01/10/2012 [facility] Systolic (mm Hg) 141 01/10/2012 [facility] Systolic (mm Hg) 125 01/10/2012 [facility] Diastolic (mm Hg) 68 01/10/2012 [facility] Systolic (mm Hg) 118 01/10/2012 [facility] Diastolic (mm Hg) 62 01/10/2012 [facility] Respitory Rate 21 01/10/2012 [facility] Respitory Rate 15 01/10/2012 [facility] Respitory Rate 16 01/10/2012 [facility] Heart Rate 76 01/10/2012 [facility] Heart Rate 80 01/08/2012 [facility] Temperature Oral (F) 98.1 F 01/08/2012 [facility] Height 167.64 cm 01/08/2012 [facility] Weight 68.182 01/08/2012 [facility] Encounters Location Location Details Encounter Type Encounter Number Reason For Visit Attending Provider ADM Date DC Date Status Source [facility] [id number] [facility]/10[facility]2012 Discharged [facility] Outpatient [id number] 592.0 ALBERTO SWARTZ 02/05/2012 02/05/2012 Active [facility] Outpatient [id number] +PPD SUSIE MONTILLA 03/25/2012 Active [facility] Outpatient [id number] 592.0,592.1/KSTONE PROTOCOL NO IV AND NO ORAL ALBERTO SWARTZ 02/18/2013 Active [facility] Outpatient [id number] PNEUMONIA SUSIE MONTILLA 04/23/2013 Active [facility] Outpatient [id number] Alberto Swartz 03/18/2014 03/19/2014 [facility] Outpatient [id number] Alberto Swartz 04/28/2014 04/29/2014 [facility] OBS Day Surgery [id number] Alberto Swartz 05/18/2014 05/18/2014 [facility] Outpatient [id number] Alberto Swartz 06/20/2014 06/21/2014 [facility] Outpatient [id number] Susie Montilla 08/26/2014 08/27/2014 [facility] Outpatient [id number] Elisa Aidee 01/24/2015 01/25/2015 [facility] Outpatient [id number] Alberto Swartz 06/26/2015 06/27/2015 [facility] [place] [facility] Diag Services [id number] Niya Zelaya 09/01/2015 09/02/2015 [facility] Outpatient [id number] Alberto Swartz 07/11/2016 07/12/2016 [facility] Outpatient [id number] Elisaish Hoskins 06/22/2018 06/23/2018 [facility] Registered Surgical Day Care [id number] JEREMI ORTEGA MD 07/22/2018 [facility] Departed Emergency Room [id number] MIRA HUI MD 07/23/2018 07/23/2018 [facility] Outpatient [id number] Alberto Swartz 07/27/2018 Active [facility] Outpatient [id number] Alberto Swartz 07/27/2018 07/28/2018 [facility] Outpatient [id number] -[place] 08/03/2018 [facility] Outpatient [id number] 08/03/2018 08/04/2018 [facility] Outpatient [id number] Alberto Thi 08/10/2018 [facility] [id number] Swartz 08/10/2018 08/11/2018 [facility] Outpatient [id number] -[place] 12/08/2018 [facility] Outpatient [id number] [facility] Swartz 12/10/2018 [facility] Procedures Procedure Code Date Perfomer Comments Source Measurement of post-voiding residual urine and/or bladder capacity by ultrasound, non-imaging 56430 08/03/2018 [facility] Complex uroflowmetry (eg, calibrated electronic equipment) 44081 08/03/2018 [facility] Colonoscopy with polypectomy [id number] 07/22/2018 JORDAN [facility] ESWL of kidney [id number] [facility] Complex uroflowmetry [id number] [facility] ESWL of kidney [id number] [facility] ESWL of kidney [id number] OPIChris [place] Assessment and Plan No Data Provided for This Section Plan of Care Plan of Care Date Source Discharge Date 07/23/18 3:27am Disposition HOME, SELF-CARE Condition at Discharge Stable Instructions/Education Provided [facility] C[facility]ter Care Urinary Retention Prescriptions See Medication Section Additional Instructions/Education REST; FOLLOW STROUD CATHETER INSTRUCTIONS; FOLLOW UP WITH YOUR UROLOGIST; TAKE MEDICATIONS PRESCRIBED; 07/23/2018 [facility] Social History Social History Date Source Smoking Status Start Date Stop Date Never Smoker 07/23/2018 [facility] Social History TypeResponse Substance Abuse Use: None. Alcohol Current, Type Beer. Frequency: 1-2 times per week. Smoking Status Never smoker; Exposure to Tobacco Smoke None; Cigarette Smoking Last 365 Days No; Reg Smoking Cessation Counseling No entered on: 05/11/14 05/11/2014 [facility] Social [facility] TypeResponse Substance Abuse Use: None. Alcohol Current, Type Beer. Frequency: 1-2 times per week. Smoking Status Never smoker; Exposure to Tobacco Smoke None; Cigarette Smoking Last 365 Days No; Reg Smoking Cessation Counseling No entered on: 08/10/18 05/11/2014 [facility] Social History TypeResponse Substance Abuse Use: None. Alcohol Current, Type Beer. Frequency: 1-2 times per week. Smoking Status Never smoker; Exposure to Tobacco Smoke None; Cigarette Smoking Last 365 Days No; Reg Smoking Cessation Counseling No 05/11/2014 [facility] [place] Family History No Data Provided for This Section Advance Directives Order Name Results Value Date Source Advance Directives Advance Directives Directive Response Recorded Date/Time Does the patient have an advance directive? No 12/27/11 3:13am Do you have a Directive to Physician? No 07/23/18 3:13am Do you have a Medical Power of Menagerie Superintendent? No 07/23/18 3:13am Do you have an out of hospital Do Not Resuscitate Order? No 07/23/18 3:13am Do you have any special needs we should be aware of? No 07/23/18 3:13am Do you have a support person here with you today? Yes 07/23/18 3:13am Did patient receive Notice of Privacy Practices? Yes 07/23/18 3:13am Did patient receive patient rights and responsibilities? Yes 07/23/18 3:13am 07/23/2018 [facility] Functional Status No Data Provided for This Section
--- OUTSIDE RECORDS SUMMARY | 2018-10-07 12:20 | XMS REPORT | Summary of Care ---
Author Author [facility] Organization [facility] Address Unknown Phone Unavailable Encounter HQ Latoya(FIN) [id number] Date(s): 07/27/18 - 07/27/18 [facility] [address] [place] [address]- Discharge Disposition: Home or Self Care Attending Physician: Alberto Ness MD Vital Signs No data available for this section Problem List Condition Effective Dates Status Health Status Informant Gout(Confirmed) Active Hypertension(Confirm Active ed) (Confirmed)1 < 03/07/10 Resolved Renal Resolved stones(Confirmed) Ureteral Active stone(Confirmed) 1This problem was automatically added by Discern for patients less than 28 days old. Allergies, Adverse Reactions, Alerts Substance Reaction Severity Status NSAIDs Active Medications alendronate 10 mg oral tablet 10 mg=1 tab, PO, Daily, 0 Refill(s) Start Date: 07/27/18 Status: Ordered methotrexate 2.5 mg oral tablet PO, 0 Refill(s) Start Date: 07/27/18 Status: Ordered nitrofurantoin 100 mg, PO, BID, # 14 cap, 0 Refill(s) Start Date: 07/27/18 Stop Date: 08/03/18 Status: Ordered tamsulosin 0.4 mg oral capsule 0.4 mg=1 cap, PO, Daily, 0 Refill(s) Start Date: 07/27/18 Status: Ordered Vitamin D3 0 Refill(s) Start Date: 07/27/18 Status: Ordered Results No data available for this section Immunizations No data available for this section Procedures Procedure Date Related Diagnosis Body Site Status Complex uroflowmetry Completed ESWL of kidney Completed Social History Social History Type Response Substance Abuse Use: None. Alcohol Current, Type Beer. Frequency: 1-2 times per week. Smoking Status Never smoker; Exposure to Tobacco Smoke None; Cigarette Smoking Last 365 Days No; Reg Smoking Cessation Counseling No entered on: 07/27/18 Assessment and Plan No data available for this section
--- OUTSIDE RECORDS SUMMARY | 2018-10-07 12:20 | XMS REPORT | Summary of Care ---
Author Author [facility] Organization [facility] Address Unknown Phone Unavailable Encounter HQ Evertonntr_carlyle(FIN) [id number] Date(s): 08/03/18 - 08/03/18 [facility] [address] [place] [address]- Discharge Disposition: Home or Self Care Vital Signs No data available for this [...] Related Diagnosis Body Site Status Complex uroflowmetry (eg, calibrated 08/03/18 Completed electronic equipment) Measurement of post-voiding residual urine 08/03/18 Completed and/or bladder capacity by ultrasound, non-imaging Complex uroflowmetry Completed ESWL of kidney Completed [...]
--- OUTSIDE RECORDS SUMMARY | 2018-10-07 12:20 | XMS REPORT | Summary of Care ---
Author Author [facility] Urology [facility] Organization [facility] Address Unknown Phone Unavailable Encounter PETRA Klein(JAMEEL) [id number] Date(s): 08/10/18 - 08/10/18 [facility] [address] [place] [address]- Discharge Disposition: Home or Self Care Attending Physician: Alberto Ness MD Vital Signs Most recent to 1 oldest [Reference Range]: Height 165.1 cm (08/10/18 9:50 AM) Weight 68.636 kg (08/10/18 9:50 AM) Body Mass Index 25.18 m2 (08/10/18 9:50 AM) Problem List Condition Effective Dates Status Health Status Informant Gout(Confirmed) Active Hypertension(Confirm Active ed) [place](Confirmed)1 < 03/07/10 Resolved Renal Resolved stones(Confirmed) Ureteral Active stone(Confirmed) 1This problem was automatically added by Discern for patients less than 28 days old. Allergies, Adverse Reactions, Alerts Substance Reaction Severity Status NSAIDs Active Medications Avodart 0.5 mg oral capsule 0.5 mg=1 cap, PO, Daily, # 90 cap, 1 Refill(s), Pharmacy: [facility] [id number] Start Date: 08/10/18 Status: Ordered tamsulosin 0.4 mg oral capsule 0.4 mg=1 cap, PO, Daily, # 90 cap, 1 Refill(s), Pharmacy: [facility] [id number] Start Date: 08/10/18 Status: Ordered Results No data available for [...] Smoking Cessation Counseling No entered on: 08/10/18 Assessment and Plan No data available for this section
[2018-10-07] MEDS ORDERED: SODIUM CHLORIDE 0.9% 500ML 500 ML IV ONE (12:45)
--- NOTE | 2018-10-07 13:09 | NUR ---
59 mL's noted on bladder scan. informed.
[2018-10-07 13:16] LABS: BASOPHILS # (AUTO) 0.1 (0.0-0.1); BASOPHILS % 0.3 % (0.0-1.0); EOSINOPHILS # (AUTO) 0.2 (0.0-0.4); HEMATOCRIT 42.4 % (38.2-49.6); HEMOGLOBIN 14.1 g/dL (14.0-18.0); LYMPHOCYTES # (AUTO) 1.4 (1.0-3.2); LYMPHOCYTES % 7.8 % (18.0-39.1); MEAN CORPUSCULAR HEMOGLOBIN 32.2 pg (28-32); MEAN CORPUSCULAR HGB CONC 33.3 g/dL (31-35); MEAN CORPUSCULAR VOLUME 96.8 fL (81-99); MONOCYTES # (AUTO) 1.7 (0.2-0.8); MONOCYTES % 9.4 % (4.4-11.3); NEUTROPHILS # (AUTO) 14.7 (2.1-6.9); NEUTROPHILS % 80.5 % (38.7-80.0); PLATELET COUNT 329 x10e3/uL (140-360); RED BLOOD COUNT 4.38 x10e6/uL (4.3-5.7); RED CELL DISTRIBUTION WIDTH 15.9 % (11.7-14.4)
[2018-10-07 13:17] LABS: BILIRUBIN,URINE SMALL (NEGATIVE); CLARITY,URINE SL CLOUDY (CLEAR); COLOR,URINE YELLOW (YELLOW); KETONES,URINE TRACE (NEGATIVE); LEUKOCYTE ESTERASE ,URINE NEGATIVE (NEGATIVE); NITRITE,URINE NEGATIVE (NEGATIVE); PROTEIN,URINE DIPSTICK 1+ (NEGATIVE); URINE UROBILINOGEN 0.2 mg/dL (0.2 - 1)
[2018-10-07] MEDS ORDERED: PREDNISONE10 MG PO (13:18)
[2018-10-07] MEDS ORDERED: FUROSEMIDE40 MG PO (13:18)
[2018-10-07] MEDS ORDERED: vitamin d3 PO (13:18)
[2018-10-07] MEDS ORDERED: FLOMAX0.4 MG PO (13:19)
[2018-10-07] MEDS ORDERED: ORENCIA125 MG/1 M SC (13:20)
[2018-10-07 13:21] LABS: AMPHETAMINES SCREEN,URINE NEGATIVE (NEGATIVE); BENZODIAZEPINES SCREEN,URINE NEGATIVE (NEGATIVE); PHENCYCLIDINE SCREEN,URINE NEGATIVE (NEGATIVE)
[2018-10-07 13:25] LABS: INR 0.99; PROTHROMBIN TIME 13.6 seconds (11.9-14.5)
[2018-10-07 13:26] LABS: PARTIAL THROMBOPLASTIN TIME 35.8 seconds (23.8-35.5)
[2018-10-07 13:27] LABS: BACTERIA,URINE MODERATE /HPF; EPITHELIAL CELLS,URINE MODERATE /LPF; RBC,URINE 21-50 /HPF (0-5); WBC,URINE (MAN) 0-5 /HPF (0-5)
[2018-10-07 13:34] LABS: ALANINE AMINOTRANSFERASE 30 IU/L (0-55); ALBUMIN 3.5 g/dL (3.5-5.0); ALBUMIN/GLOBULIN RATIO 0.8 (0.8-2.0); ALKALINE PHOSPHATASE 53 IU/L (40-150); BLOOD UREA NITROGEN 27 mg/dL (7-26); BUN/CREATININE RATIO 25 (6-25); CALCIUM 9.8 mg/dL (8.4-10.2); CARBON DIOXIDE 26 mmol/L (22-29); CHLORIDE 101 mmol/L (98-107); CREATINE KINASE 114 IU/L (30-200); CREATININE, SERUM 1.08 mg/dL (0.72-1.25); EST GLOMERULAR FILTRATION RATE > 60 ML/MIN (60-); GLUCOSE 95 mg/dL (74-118); MAGNESIUM 2.6 MG/DL (1.3-2.1); SODIUM 140 mmol/L (136-145)
--- NOTE | 2018-10-07 13:49 | Diagnostic Imaging Report ---
EXAMINATION: Head CT HISTORY: Alteration of consciousness, no answering questions sensitivity for COMPARISON: None. TECHNIQUE: Multidetector axial images were obtained without contrast from the foramen magnum to the vertex . The images were reconstructed using brain and bone algorithms. Thin section brain images were reformatted into coronal and sagittal planes. Image quality: Motion/streaking artifact limits the evaluation of the skull base and posterior cranial fossa. Dose modulation, iterative reconstruction, and/or weight based adjustment of the mA/kV was utilized to reduce the radiation dose to as low as reasonably achievable. FINDINGS: Parenchyma: 1. A few scattered mostly bilateral frontal juxtacortical and periventricular white matter hypodensities, most likely nonspecific chronic microvascular ischemic changes. Otherwise no areas of abnormal density in the brain parenchyma. 2. No mass or hemorrhage. No CT evidence of acute territorial vascular insult. Extra-axial spaces:No abnormal density. No extra-axial fluid collections Brain volume: Normal for age. Ventricles: No hydrocephalus or displacement. Arteries: No density suggestive of thrombus. Dural sinuses: No abnormal density. Extra-axial spaces: No abnormal density. Foramen magnum: No mass, Chiari malformation, or basilar invagination. Sella: No obvious mass. Paranasal/mastoid sinuses: Hypopneumatization, sclerosis and partial opacification of the right mastoid air cells, possibly the middle ear as well, likely related to chronic inflammatory process. Partially visualized mucosal inflammatory thickening and partial opacification of the paranasal sinuses as well as postoperative changes. Skull/Scalp: No lytic or blastic lesions. No fractures. IMPRESSION: 1. No acute intracranial abnormalities. 2. Mild chronic microvascular ischemic changes. 3. Partially visualized likely chronic inflammatory changes of the paranasal sinuses and right mastoid air cells. Signed by: Dr. Sonia Coronado M.D. on 10/07/2018 1:45 PM
--- NOTE | 2018-10-07 13:52 | Diagnostic Imaging Report ---
EXAMINATION: CHEST SINGLE (PORTABLE) INDICATION: Altered mental status COMPARISON: None FINDINGS: TUBES and LINES: None. LUNGS: The lung volumes are normal. No focal consolidation or pulmonary edema. PLEURA: No pleural effusion or pneumothorax. HEART AND MEDIASTINUM: The cardiomediastinal silhouette is normal in size and contour. Atherosclerotic calcifications of the thoracic aorta. BONES AND SOFT TISSUES: No acute fracture or dislocation. UPPER ABDOMEN: No free air under the diaphragm. IMPRESSION: No focal pneumonia or pulmonary edema. Signed by: Bianka Graham MD on 10/07/2018 1:49 PM
[2018-10-07 13:54] LABS: THYROID STIMULATING HORMONE 0.317 uIU/mL (0.350-4.940)
[2018-10-07] MEDS ORDERED: SODIUM CHLORIDE 0.9% 1000ML 1,000 ML ONE (14:13)
[2018-10-07] MEDS ORDERED: ONDANSETRON HCL INJ 2MG/ML 2ML 2 MG/ML VIAL IV PRN (14:15)
[2018-10-07] MEDS ORDERED: SODIUM CHLORIDE 0.9% 1000ML 1,000 ML IV ONE (14:15)
[2018-10-07] MEDS ORDERED: HYDROCODONE/APAP 5MG-325MG TAB PO PRN (14:15)
[2018-10-07] MEDS: CEFTRIAXONE SOD 1 GM/NS 50 ML 50 ML IV SCH (14:16)
--- OUTSIDE RECORDS SUMMARY | 2018-10-07 14:16 | XMS REPORT | Continuity of Care Document ---
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 Role Phone [employer] Information SpecifiedBy Unavailable Unavailable Problems Problem Status Onset Date Classification Date Reported Comments Source XRAY Active 06/22/2018 [facility] KIDNEY Active 07/11/2016 [facility] 592.0 Active 04/28/2014 [facility] UNK Active 04/28/2014 [facility] 592.1/592.0 Active 04/28/2014 [facility] RENAL STONE Active 03/11/2014 [facility] 592.0,592.1/KSTONE PROTOCOL NO IV AND Active 02/12/2013 [facility] STONE 592.0 592.1 / CPT 74835 [id number] Active 01/06/2012 [facility] Newborn1 Resolved 03/07/2010 Problem 08/12/2018 This problem was automatically added by [facility] for patients less than 28 days old. [facility] [place] Gout Active Problem 08/12/2018 [facility] [place] Hypertension Active Problem 08/12/2018 [facility] [place] Renal stones Resolved Problem 08/12/2018 [facility] [place] Ureteral stone Active Problem 08/12/2018 [facility] [place] CALCULUS OF KIDNEY Active [facility] CALCULUS OF URETER Active [facility] +PPD Active [facility] NONSP REVA SKN TEST WO TB Active [facility] PNEUMONIA Active [facility] PNEUMONIA, ORGANISM NOS Active [facility] M25.521 Active [facility] PAIN IN RIGHT ELBOW Active [facility] COUGH Active [facility] COUGH Active [facility] KUB Active [facility] CALCULUS OF KIDNEY Active [facility] CHEST PAIN, UNSPECIFIED Active [facility] PAIN IN RIGHT HAND Active [facility] PAIN IN LEFT HAND Active [facility] Medications Medication Details Route Status Patient Instructions Ordering Provider Order Date Source Dutasteride 0.5 MG Oral Capsule [Avodart] 0.5 mg=1 cap, PO, Daily, # 90 cap, 1 Refill(s), Pharmacy: [facility] [id number] Active 08/10/2018 [facility] tamsulosin 0.4 mg oral capsule 0.4 mg=1 cap, PO, Daily, # 90 cap, 1 Refill(s), Pharmacy: [facility] [id number] Active 08/10/2018 [facility] tamsulosin 0.4 mg oral capsule 0.4 mg=1 cap, PO, Daily, 0 Refill(s) Active 07/27/2018 [facility] Alendronic acid 10 MG Oral Tablet 10 mg=1 tab, PO, Daily, 0 Refill(s) Active 07/27/2018 [facility] methotrexate 2.5 mg oral tablet PO, 0 Refill(s) Active 07/27/2018 [facility] Nitrofurantoin 100 mg, PO, BID, # 14 cap, 0 Refill(s) Active 07/27/2018 [facility] Vitamin D3 0 Refill(s) Active 07/27/2018 [facility] Silodosin (Rapaflo) 4 Mg Capsule, 4 Mg Oral Daily Active 07/14/2018 [facility] Dutasteride/Tamsulosin Hcl (Licha 0.5-0.4 Mg Capsule) 1 Each Cpmp.24hr, 1 Tab Oral Daily Active 04/18/2015 [facility] Folic Acid 1 Mg Tablet, 1 Tab Oral Twice A Day Active 04/18/2015 [facility] Tocilizumab (Actemra) 200 Mg/10 Ml Vial, 1 1 Mothly Active 04/18/2015 [facility] Pyridium 100 mg oral tablet 100 mg=1 tab, PO, TID, # 21 tab, 0 Refill(s) Active 05/18/2014 [facility] Ciprofloxacin 500 MG Oral Tablet [Cipro] 500 mg=1 tab, PO, Q12H, # 14 tab, 0 Refill(s) Active 05/18/2014 [facility] Hydromorphone 0.3 mg, Route: IVP, Q3H, Dosing Weight 68.182, kg, PRN Pain Score 4-6, Start date: 05/18/14 10:06:00, Duration: 30 day, Stop date: 06/17/14 10:05:00 Inactive 05/18/2014 [facility] Ciprofloxacin 2 MG/ML Injectable Solution [Cipro] 400 mg, Route: IVPB, ONCE, Dosing Weight 68.182, kg, Start date: 05/18/14 9:25:00, Stop date: 05/18/14 9:25:00 Inactive 05/18/2014 [facility] Calcium Chloride 0.0014 MEQ/ML / Potassium Chloride 0.004 MEQ/ML / Sodium Chloride 0.103 MEQ/ML / Sodium Lactate 0.028 MEQ/ML Injectable Solution 1,000 mL, Rate: 25 ml/hr, Infuse over: 40 hr, Route: IV, Dosing Weight 68.182 kg, Total Volume: 1,000, Start date: 05/18/14 8:20:00, Duration: 30 day, Stop date: 06/17/14 8:19:00 Inactive 05/18/2014 [facility] ondansetron 4 mg, 2 mL, Route: IVP, Drug form: INJ, ONCE, Dosing Weight 68.182, kg, PRN Nausea & Vomiting, Start date: 01/10/12 12:51:00 IVP No Longer Active [facility] 01/10/2012 [facility] acetaminophen-hydrocodone 325 mg-5 mg oral tablet 2 tab, Route: PO, Drug Form: TAB, Dosing Weight 68.182, kg, Q4H, PRN Pain Score 4-6, Start date: 01/10/12 12:51:00, Duration: 30 day, Stop date: 02/09/12 12:50:00 PO No Longer Active [facility] 01/10/2012 [facility] niCARdipine 0.25 mg, 0.1 mL, Route: IVP, Drug form: INJ, Q5Min, Dosing Weight 68.182, kg, PRN Elevated BP, Start date: 01/10/12 12:51:00, Duration: 4 doses or times, Stop date: Limited # of times IVP No Longer Active [facility] 01/10/2012 [facility] fentanyl 25 microgram, 0.5 mL, Route: IVP, Drug form: INJ, Q5Min, Dosing Weight 68.182, kg, PRN Pain Score 4-6, Start date: 01/10/12 12:51:00, Duration: 4 doses or times, Stop date: Limited # of times IVP No Longer Active [facility] 01/10/2012 [facility] metoprolol 1 mg, 1 mL, Route: IVP, Drug form: INJ, Q5Min, Dosing Weight 68.182, kg, PRN Elevated BP, Start date: 01/10/12 12:51:00, Duration: 5 doses or times, Stop date: Limited # of times IVP No Longer Active [facility] 01/10/2012 [facility] labetalol 5 mg, 1 mL, Route: IVP, Drug form: INJ, Q5Min, Dosing Weight 68.182, kg, PRN Elevated BP, Start date: 01/10/12 12:51:00, Duration: 5 doses or times, Stop date: Limited # of times IVP No Longer Active [facility] 01/10/2012 [facility] hydrALAZINE 5 mg, 0.25 mL, Route: IVP, Drug form: INJ, Q5Min, Dosing Weight 68.182, kg, PRN Elevated BP, Start date: 01/10/12 12:51:00, Duration: 4 doses or times, Stop date: Limited # of times IVP No Longer Active [facility] 01/10/2012 [facility] Lactated Ringers Injection IV 1,000 mL 1,000 mL, Rate: 50 ml/hr, Infuse over: 20 hr, Route: IV, kg, Total Volume: 1,000, Start date: 01/10/12 12:51:00, Duration: 30 day, Stop date: 02/09/12 12:50:00 IV No Longer Active [facility] 01/10/2012 [facility] naloxone 0.04 mg, 0.04 mL, Route: IVP, Drug form: INJ, Q2MIN, Dosing Weight 68.182, kg, PRN Narcotic Reversal, Start date: 01/10/12 12:51:00, Duration: 8 doses or times, Stop date: Limited # of times IVP No Longer Active [facility] 01/10/2012 [facility] flumazenil 0.2 mg, 2 mL, Route: IVP, Drug form: INJ, PRN, Dosing Weight 68.182, kg, PRN Benzodiazepine Reversal, Initial dose, Start date: 01/10/12 12:51:00, Duration: 30 day, Stop date: 02/09/12 11:50:00 IVP No Longer Active [facility] 01/10/2012 [facility] meperidine 12.5 mg, 0.25 mL, Route: IVP, Drug form: INJ, Q30Min, Dosing Weight 68.182, kg, PRN Other -See Comment, For shivering, Start date: 01/10/12 12:51:00, Duration: 2 doses or times, Stop date: Limited # of times IVP No Longer Active [facility] 01/10/2012 [facility] morphine Sulfate 2 mg, 1 mL, Route: IVP, Drug form: INJ, Q5Min, Dosing Weight 68.182, kg, PRN Pain Score 4-6, Start date: 01/10/12 12:51:00, Duration: 8 doses or times, Stop date: Limited # of times IVP No Longer Active [facility] 01/10/2012 [facility] hydromorphone 0.5 mg, 0.5 mL, Route: IVP, Drug form: SOLN, Q5Min, Dosing Weight 68.182, kg, PRN Pain Score 4-6, Start date: 01/10/12 12:51:00, Duration: 5 doses or times, Stop date: Limited # of times IVP No Longer Active [facility] 01/10/2012 [facility] Ditropan 5 mg, Route: PO, Drug form: TAB, ONCE, Dosing Weight 68.182, kg, Start date: 01/10/12 11:41:00, Stop date: 01/10/12 11:41:00 PO No Longer Active [facility] 01/10/2012 [facility] Pyridium 200 mg, Route: PO, Drug form: TAB, ONCE, Dosing Weight 68.182, kg, Start date: 01/10/12 11:41:00, Stop date: 01/10/12 11:41:00 PO No Longer Active [facility] 01/10/2012 [facility] gentamicin 120 mg, Route: IVPB, ONCE, Dosing Weight 68.182, kg, Start date: 01/10/12 8:02:00, Stop date: 01/10/12 8:02:00 IVPB No Longer Active [facility] 01/10/2012 [facility] Ancef 1 gm, Route: IVPB, ONCE, Dosing Weight 68.182, kg, Start date: 01/10/12 8:02:00, Duration: 1 doses or times, Stop date: 01/10/12 8:02:00 IVPB No Longer Active [facility] 01/10/2012 [facility] Lactated Ringers Injection IV 1000 mL 1,000 mL, Rate: 25 ml/hr, Infuse over: 40 hr, Route: IV, Dosing Weight 68.182 kg, Total Volume: 1,000, Start date: 01/10/12 7:46:00, Duration: 30 day, Stop date: 02/09/12 7:45:00 IV No Longer Active [facility] 01/10/2012 [facility] folic acid 1 mg oral tablet 1 mg, 1 tab, PO, Daily, 30 tab, Substitution Allowed, TAB PO Active 01/08/2012 [facility] allopurinol 100 mg oral tablet 100 mg, 1 tab, PO, BID, 180 tab, Substitution Allowed, TAB PO Active 01/08/2012 [facility] amLODipine 10 mg oral tablet 10 mg, 1 tab, PO, Daily, 30 tab, Substitution Allowed, TAB PO Active 01/08/2012 [facility] prednisoLONE 5 mg oral tablet 5 mg, 1 tab, PO, Daily, 7 tab, Substitution Allowed, TAB PO Active 01/08/2012 [facility] Advair Diskus 250 mcg-50 mcg inhalation powder 1 puff, INHALATION, BID, 28 ea, Substitution Allowed, Maintenance, PWDR INHALATION Active 01/08/2012 [facility] Allopurinol 100 Mg Tablet Daily Active [facility] Amlodipine Besylate 10 Mg Tablet Daily Active [facility] Cholecalciferol (Vitamin D3) (Vitamin D) 400 Unit Capsule Daily Active [facility] Folic Acid 1 Mg Tablet Daily Active [facility] Methotrexate Sodium (Methotrexate) 2.5 Mg Tablet Daily Active [facility] Prednisolone (Millipred) 5 Mg Tablet Daily Active [facility] Allergies, Adverse Reactions, Alerts Substance Category Reaction Severity Reaction type Status Date Reported Comments Source NSAIDS (Non-Steroidal Anti-Inflamma Severe Allergy to Substance Active 12/27/2011 [facility] Aspirin Unknown Allergy to Substance Active 07/23/2018 [facility] NSAIDs Assertion Drug allergy Active Medical Group Immunizations No Data Provided for This Section Results Order Name Results Value Reference Range Date Interpretation Comments Source Urine color determination YELLOW YELLOW 07/23/2018 [facility] Urine clarity CLEAR CLEAR 07/23/2018 [facility] Specific gravity of Urine by Test strip 1.005 1.010 - 1.025 07/23/2018 [facility] Urine pH measurement by automated test strip 5 5 - 7 07/23/2018 [facility] Urine leukocyte esterase detection by dipstick NEGATIVE NEGATIVE 07/23/2018 [facility] Urine nitrite detection NEGATIVE NEGATIVE 07/23/2018 [facility] Urine protein measurement by test strip (mass/volume) NEGATIVE NEGATIVE 07/23/2018 [facility] Urine glucose detection NEGATIVE NEGATIVE 07/23/2018 [facility] Urine ketones detection by automated test strip NEGATIVE NEGATIVE 07/23/2018 [facility] Urine urobilinogen measurement by test strip (mass/volume) 0.2 0.2 - 1 07/23/2018 [facility] Urine total bilirubin measurement (mass/volume) NEGATIVE NEGATIVE 07/23/2018 [facility] Urine erythrocytes detection 3+ NEGATIVE 07/23/2018 [facility] Automated urine sediment leukocyte count by microscopy (number/high power field) 0-5 0 - 5 07/23/2018 [facility] Erythrocytes detection in urine sediment by light microscopy 11-20 0 - 5 07/23/2018 [facility] Bacteria detection in urine sediment by light microscopy FEW NONE 07/23/2018 [facility] Epithelial cells detection in urine sediment by light microscopy FEW NONE 07/23/2018 [facility] Blood leukocytes automated count (number/volume) 16.61 4.8 - 10.8 07/23/2018 [facility] Blood erythrocytes automated count (number/volume) 4.59 4.3 - 5.7 07/23/2018 [facility] Blood hemoglobin measurement (moles/volume) 14.7 14.0 - 18.0 07/23/2018 [facility] Automated blood hematocrit (volume fraction) 45.0 38.2 - 49.6 07/23/2018 [facility] Automated erythrocyte mean corpuscular volume 98.0 81 - 99 07/23/2018 [facility] Automated erythrocyte mean corpuscular hemoglobin (mass per erythrocyte) 32.0 28 - 32 07/23/2018 [facility] Automated erythrocyte mean corpuscular hemoglobin concentration measurement (mass/volume) 32.7 31 - 35 07/23/2018 [facility] RDW BldCo-Rto 14.6 11.7 - 14.4 07/23/2018 [facility] Automated blood platelet count (count/volume) 310 140 - 360 07/23/2018 [facility] Automated blood segmented neutrophil count as percentage of total leukocytes 88.5 38.7 - 80.0 07/23/2018 [facility] Automated blood lymphocyte count as percentage ot total leukocytes 4.3 18.0 - 39.1 07/23/2018 [facility] Automated blood monocyte count as percentage of total leukocytes 5.5 4.4 - 11.3 07/23/2018 [facility] Automated blood eosinophil count as percentage of total leukocytes 0.4 0.0 - 6.0 07/23/2018 [facility] Automated blood basophil count as percentage of total leukocytes 0.2 0.0 - 1.0 07/23/2018 [facility] IM GRANULOCYTES % 1.1 0.0 - 1.0 07/23/2018 [facility] Automated blood neutrophil count 14.7 2.1 - 6.9 07/23/2018 [facility] Blood lymphocytes count (number/volume) 0.7 1.0 - 3.2 07/23/2018 [facility] Blood monocytes automated count (number/volume) 0.9 0.2 - 0.8 07/23/2018 [facility] Automated blood eosinophil count 0.1 0.0 - 0.4 07/23/2018 [facility] Automated blood basophil count (count/volume) 0.0 0.0 - 0.1 07/23/2018 [facility] Absolute Immature Granulocyte (auto 0.19 0 - 0.1 07/23/2018 [facility] Serum or plasma sodium measurement (moles/volume) 134 136 - 145 07/23/2018 [facility] Serum or plasma potassium measurement (moles/volume) 4.1 3.5 - 5.1 07/23/2018 [facility] Serum or plasma chloride measurement (moles/volume) 101 98 - 107 07/23/2018 [facility] Serum or plasma carbon dioxide, total measurement (moles/volume) 21 22 - 29 07/23/2018 [facility] Serum or plasma anion gap 16.1 8 - 16 07/23/2018 [facility] Serum or plasma urea nitrogen measurement (mass/volume) 22 7 - 26 07/23/2018 [facility] Serum or plasma creatinine measurement (mass/volume) 1.17 0.72 - 1.25 07/23/2018 [facility] Serum or plasma urea nitrogen/creatinine mass ratio 19 6 - 25 07/23/2018 [facility] Estimated glomerular filtration rate (GFR) determination > 60 60 07/23/2018 [facility] Glucose measurement 115 74 - 118 07/23/2018 [facility] Serum or plasma calcium measurement (mass/volume) 9.5 8.4 - 10.2 07/23/2018 [facility] Serum or plasma total bilirubin measurement (mass/volume) 0.9 0.2 - 1.2 07/23/2018 [facility] Aspartate Amino Transf (AST/SGOT) 25 5 - 34 07/23/2018 [facility] Serum or plasma alanine aminotransferase measurement (enzymatic activity/volume) 21 0 - 55 07/23/2018 [facility] Serum or plasma protein measurement (mass/volume) 8.0 6.5 - 8.1 07/23/2018 [facility] Serum or plasma albumin measurement (mass/volume) 3.7 3.5 - 5.0 07/23/2018 [facility] Plasma globulin measurement (mass/volume) 4.3 2.3 - 3.5 07/23/2018 [facility] Serum or plasma albumin/globulin mass ratio 0.9 0.8 - 2.0 07/23/2018 [facility] Serum or plasma alkaline phosphatase measurement (enzymatic activity/volume) 55 40 - 150 07/23/2018 [facility] CHEM PANEL BUN 24 7 - 22 05/11/2014 [facility] CHEM PANEL eGFR 67 05/11/2014 <sup>1</sup>Result [...] should be multiplied by the estimated BMI. [facility] CHEM PANEL Chloride Lvl 107 95 - 109 05/11/2014 [facility] CHEM PANEL CO2 31 24 - 32 05/11/2014 [facility] CHEM PANEL Potassium Lvl 4.3 3.5 - 5.1 05/11/2014 [facility] CHEM PANEL Sodium Lvl 141 135 - 145 05/11/2014 [facility] CHEM PANEL Calcium Lvl 9.0 8.5 - 10.5 05/11/2014 [facility] CHEM PANEL Creatinine Lvl 1.1 0.5 - 1.4 05/11/2014 [facility] CHEM PANEL Glucose Lvl 107 70 - 99 05/11/2014 <sup>2</sup>Interpretive Data: Adult reference range values reflect the clinical guidelines
of the [employer]. [facility] CHEM PANEL AGAP 7.3 10.0 - 20.0 05/11/2014 [facility] PT 13.1 12.0 - 14.7 05/11/2014 [facility] PTT 27.3 22.9 - 35.8 05/11/2014 <sup>5</sup>Interpretive Data: Heparin Therapeutic Range: 57 - 92 Seconds [facility] INR 0.99 0.85 - 1.17 05/11/2014 <sup>4</sup>Interpretive Data: RECOMMENDED RANGES FOR PROTIME INR:
2.0-3.0 for most medical and surgical thromboembolic states.
2.5-3.5 for artificial heart valves and recurrent embolism.

INR SHOULD BE USED ONLY FOR PATIENTS ON STABLE ANTICOAGULANT THERAPY. [facility] MCHC 33.0 32.0 - 36.0 05/11/2014 [facility] MPV 11.0 7.4 - 10.4 05/11/2014 [facility] Platelet 164 133 - 450 05/11/2014 [facility] RBC 4.33 4.70 - 6.10 05/11/2014 [facility] MCH 35.4 27.0 - 31.0 05/11/2014 [facility] RDW 13.5 11.5 - 14.5 05/11/2014 [facility] MCV 107.2 80.0 - 94.0 05/11/2014 [facility] Hct 46.4 42.0 - 54.0 05/11/2014 [facility] Hgb 15.3 14.0 - 18.0 05/11/2014 [facility] WBC 8.0 3.7 - 10.4 05/11/2014 [facility] Monocytes # 1.0 0.0 - 0.8 05/11/2014 [facility] Eosinophils # 0.8 0.0 - 0.5 05/11/2014 [facility] Lymphocytes # 0.9 1.0 - 5.5 05/11/2014 [facility] Macrocyte 2+ *ABN* (05/11/14 12:13 PM) None Seen 05/11/2014 [facility] Eosinophils 10.1 0.0 - 4.0 05/11/2014 [facility] Segs-Bands # 5.2 1.5 - 8.1 05/11/2014 [facility] Monocytes 12.5 2.0 - 12.0 05/11/2014 [facility] Basophils 0.6 0.0 - 1.0 05/11/2014 [facility] HEMATOLOGY Lymphocytes 11.9 20.0 - 40.0 05/11/2014 [facility] HEMATOLOGY Segs 64.9 45.0 - 75.0 05/11/2014 [facility] URINE AND STOOL UA Leuk Est Negative (05/11/14 12:13 PM) Negative 05/11/2014 [facility] URINE AND STOOL UA RBC 2 0 - 2 05/11/2014 [facility] URINE AND STOOL UA WBC 1 0 - 5 05/11/2014 [facility] URINE AND STOOL UA Mucus Few /LPF None Seen /LPF 05/11/2014 [facility] URINE AND STOOL UA Sperm None Seen /HPF None Seen /HPF 05/11/2014 <sup>3</sup>Result Comment: called to nazario alves [facility] URINE AND STOOL UA Urobilinogen <=1.0 mg/dL 0.1 - 1.0 05/11/2014 [facility] URINE AND STOOL UA Sq Epi None Seen 05/11/2014 [facility] URINE AND STOOL UA Blood Negative (05/11/14 12:13 PM) Negative 05/11/2014 [facility] URINE AND STOOL UA Nitrite Negative (05/11/14 12:13 PM) Negative 05/11/2014 [facility] URINE AND STOOL UA Ketones Negative mg/dL Negative mg/dL 05/11/2014 [facility] URINE AND STOOL UA Bili Negative *NA* (05/11/14 12:13 PM) Negative 05/11/2014 [facility] URINE AND STOOL UA Protein Negative mg/dL Negative mg/dL 05/11/2014 [facility] URINE AND STOOL UA pH 5.0 5.0 - 8.0 05/11/2014 [facility] URINE AND STOOL UA Spec Grav 1.020 <=1.030 05/11/2014 [facility] URINE AND STOOL UA Glucose Negative mg/dL Negative mg/dL 05/11/2014 [facility] URINE AND STOOL UA Turbidity Clear (05/11/14 12:13 PM) Clear 05/11/2014 [facility] URINE AND STOOL UA Color Yellow *NA* (05/11/14 12:13 PM) Yellow 05/11/2014 [facility] CHEMISTRY AGAP 10.0 10.0 - 20.0 01/08/2012 Normal [facility] CHEMISTRY eGFR 68 01/08/2012 NA <sup>1</sup>Result [...] should be multiplied by the estimated BMI. [facility] CHEMISTRY BUN 22 7 - 22 01/08/2012 Normal [facility] CHEMISTRY Creatinine Lvl 1.1 0.5 - 1.4 01/08/2012 Normal [facility] CHEMISTRY Glucose Lvl 86 70 - 99 01/08/2012 Normal <sup>2</sup>Interpretive Data: Adult reference range values reflect the clinical guidelines
of the [place] [employer]. [facility] CHEMISTRY Calcium Lvl 8.6 8.5 - 10.5 01/08/2012 Normal [facility] CHEMISTRY CO2 33 24 - 32 01/08/2012 [facility] CHEMISTRY Potassium Lvl 4.0 3.5 - 5.1 01/08/2012 Normal [facility] CHEMISTRY Chloride Lvl 104 95 - 109 01/08/2012 Normal [facility] CHEMISTRY Sodium Lvl 143 135 - 145 01/08/2012 Normal [facility] HEMATOLOGY Lymphocytes 4.3 20.0 - 40.0 01/08/2012 LOW [facility] HEMATOLOGY Segs 79.1 45.0 - 75.0 01/08/2012 [facility] HEMATOLOGY Segs-Bands # 10.9 1.5 - 8.1 01/08/2012 [facility] HEMATOLOGY Eosinophils 5.5 0.0 - 4.0 01/08/2012 [facility] HEMATOLOGY Monocytes 11.0 2.0 - 12.0 01/08/2012 Normal [facility] HEMATOLOGY Basophils 0.1 0.0 - 1.0 01/08/2012 Normal [facility] HEMATOLOGY Basophils # 0.0 0.0 - 0.2 01/08/2012 Normal [facility] HEMATOLOGY Monocytes # 1.5 0.0 - 0.8 01/08/2012 [facility] HEMATOLOGY Lymphocytes # 0.6 1.0 - 5.5 01/08/2012 [facility] HEMATOLOGY Eosinophils # 0.8 0.0 - 0.5 01/08/2012 [facility] HEMATOLOGY PTT 33.2 22.9 - 35.8 01/08/2012 Normal <sup>4</sup>Interpretive Data: Heparin Therapeutic Range: 57 - 92 Seconds [facility] INR 0.93 0.85 - 1.17 01/08/2012 Normal <sup>3</sup>Interpretive Data: RECOMMENDED RANGES FOR PROTIME INR:
2.0-3.0 for most medical and surgical thromboembolic states.
2.5-3.5 for artificial heart valves and recurrent embolism.

INR SHOULD BE USED ONLY FOR PATIENTS ON STABLE ANTICOAGULANT THERAPY. [facility] PT 12.7 12.0 - 14.7 01/08/2012 Normal [facility] RBC 3.98 4.70 - 6.10 01/08/2012 LOW [facility] HEMATOLOGY WBC 13.8 3.7 - 10.4 01/08/2012 [facility] [facility] HEMATOLOGY MCH 35.2 27.0 - 31.0 01/08/2012 [facility] HEMATOLOGY MCV 104.6 80.0 - 94.0 01/08/2012 [facility] RDW 13.8 11.5 - 14.5 01/08/2012 Normal [facility] MCHC 33.6 32.0 - 36.0 01/08/2012 Normal [facility] Hgb 14.0 14.0 - 18.0 01/08/2012 Normal [facility] HEMATOLOGY Hct 41.6 42.0 - 54.0 01/08/2012 LOW [facility] HEMATOLOGY Platelet 261 133 - 450 01/08/2012 Normal [facility] HEMATOLOGY MPV 9.4 7.4 - 10.4 01/08/2012 Normal [facility] Pathology Reports No Data Provided for [...] nonspecific inflammatory arthritis such as rheumatoid : [id number] 06/22/2018 [facility] Chest 2 views DX Patient Name: NATASHA CORDERO : 1940; Age: 77 years y/o Male MR: [id number] * CHEST, 2 views HISTORY: - R07.9 [...] suggestive of chronic obstructive pulmonary disease. : [id number] 06/22/2018 [facility] Abdomen AP DX KUB: The low [...] is no significant change compared to 06/26/2015. [id number] 07/11/2016 [facility] Sinus wo contrast CT EXAM: SINUS CT WITHOUT CONTRAST DATE: 09/01/2015 9:40 AM CDT CLINICAL INDICATION: Nasal polyposis. TECHNIQUE: Thin section axial images are obtained from skull base through vertex ([place]) without IV contrast. Axial, sagittal, and coronal [...] mucosal thickening with patent postoperative drainage pathways. Craig drainage pathways are occluded. Nasal airway: Slight [...] lumbar spine. Bowel gas pattern normal. SL: [id number] 06/26/2015 [facility] Elbow 3 views DX Examination: Right [...] with large joint effusion. SL: 16 01/24/2015 [facility] Chest 2 views DX Examination: Chest x-ray, 2 views History: cough Comparison: 04/23/2013 Findings: Cardiac silhouette is normal in size. Emphysematous changes of the lungs are seen. No pleural effusion or pneumothorax is seen. No focal consolidation is noted. The osseous structures are without focal abnormality. IMPRESSION: COPD without acute disease SL: 08/26/2014 [facility] Abdomen AP DX HISTORY: Urinary tract calculi. Abdomen one view. COMPARISON: 05/18/2014. Left ureteral stent no longer present. Left internal iliac calcific atherosclerotic plaque, as before. Few pelvic phleboliths. No urinary tract calculus is evident, otherwise. SL:13 06/20/2014 [facility] Renal pyelogram retrograde DX Examination: Retrograde pyelogram, 6 views History: Lt stone/fluoro time=[id number]/Dose=[id number]/Cysto Room Comparison: None. Findings: Multiple intraoperative fluoroscopic views from a retrograde pyelogram are submitted for interpretation. The left ureter was cannulated. Contrast in the distal segment of the left ureter is seen. Left-sided ureteral stent is subsequently placed. SL: 16 05/18/2014 [facility] Abdomen AP view KUB: The renal [...] seen without acute osseous abnormalities. SL:13 05/18/2014 [facility] Chest 2 views Examination: Chest x-ray, 2 views History: pneumonia Comparison: 03/25/2012 Findings: Emphysematous changes throughout the lungs are again seen. There is no consolidation or congestion. No pleural effusion or pneumothorax is seen. The cardiac silhouette is normal in size. The osseous structures are stable. IMPRESSION: Stable exam of the chest without acute disease. SL: 13 04/23/2013 [facility] Renal Stone CT NONCONTRAST CT UROGRAM: [...] complex cysts. 4. Prostate enlargement. SL:13 02/18/2013 [facility] Consultation Notes No Data Provided for This Section Discharge Summaries No Data Provided for This Section History and Physicals No Data Provided for This Section Vital Signs Vital Sign Value Date Comments Source Weight 68.636 08/10/2018 [facility] Height 165.1 cm 08/10/2018 [facility] BMI Calculated 25.18 08/10/2018 [facility] Diastolic (mm Hg) 72 05/18/2014 [facility] Systolic (mm Hg) 138 05/18/2014 [facility] Respitory Rate 14 05/18/2014 [facility] Systolic (mm Hg) 128 05/18/2014 [facility] Diastolic (mm Hg) 72 05/18/2014 [facility] Respitory Rate 20 05/18/2014 [facility] Respitory Rate 16 05/18/2014 [facility] Systolic (mm Hg) 117 05/18/2014 [facility] Diastolic (mm Hg) 62 05/18/2014 [facility] Height 165.1 cm 05/11/2014 [facility] Weight 68.182 05/11/2014 [facility] BMI Calculated 25.01 05/11/2014 [facility] Heart Rate 72 05/11/2014 [facility] Temperature Oral (F) 97.4 F 05/11/2014 [facility] Diastolic (mm Hg) 78 01/10/2012 [facility] Systolic (mm Hg) 141 01/10/2012 [facility] Systolic (mm Hg) 125 01/10/2012 [facility] Diastolic (mm Hg) 68 01/10/2012 [facility] Systolic (mm Hg) 118 01/10/2012 [facility] Diastolic (mm Hg) 62 01/10/2012 [facility] Respitory Rate 21 01/10/2012 [facility] Respitory Rate 15 01/10/2012 [facility] Respitory Rate 16 01/10/2012 [facility] Heart Rate 76 01/10/2012 [facility] Heart Rate 80 01/08/2012 [facility] Temperature Oral (F) 98.1 F 01/08/2012 [facility] Height 167.64 cm 01/08/2012 [facility] Weight 68.182 01/08/2012 [facility] Encounters Location Location Details Encounter Type Encounter Number Reason For Visit Attending Provider ADM Date DC Date Status Source [facility] DS [id number] [facility] 01/10/2012 01/10/2012 Discharged [facility]patient [id number] 592.0 ALBERTO SWARTZ 02/05/2012 02/05/2012 Active [facility] Outpatient [id number] +PPD SUSIE MONTILLA 03/25/2012 Active [facility] Outpatient [id number] 592.0,592.1/KSTONE PROTOCOL NO IV AND NO ORAL ALBERTO SWARTZ 02/18/2013 Active [facility] Outpatient [id number] PNEUMONIA SUSIE MONTILLA 04/23/[address] [facility] Outpatient [id number] Alberto Swartz 03/18/2014 03/19/[address] [facility] Outpatient [id number] Alberto Swartz 04/28/2014 04/29/[address] [facility] OBS Day Surgery [id number] Alberto Swartz 05/18/2014 05/18/[address] [facility] Outpatient [id number] Ablerto Swartz 06/20/2014 06/21/[address] [facility] Outpatient [id number] Susie Montilla 08/26/2014 08/27/[address] [facility] Outpatient [id number] Elisa Aidee 01/24/2015 01/25/[address] [facility] Outpatient [id number] Alberto Swartz 06/26/2015 06/27/2015 [facility] [place] [facility] Diag Services [id number] Niya Zelaya 09/01/2015 09/02/2015 [facility] Outpatient [id number] Alberto Swartz 07/11/2016 07/12/[address] [facility] Outpatient [id number] Elisaish Hoskins 06/22/2018 06/23/2018 [facility] Registered Surgical Day Care [id number] JEREMI ORTEGA MD 07/22/2018 [facility] Departed Emergency Room [id number] MIRA HUI MD 07/23/2018 07/23/2018 [facility] Outpatient [id number] Alberto Swartz 07/27/2018 Active [facility] [place] Outpatient [id number] Alberto Swartz 07/27/2018 07/28/2018 [facility] Outpatient [id number] -[place] 08/03/2018 [facility] Outpatient [id number] 08/03/2018 08/04/2018 [facility] Outpatient [id number] Alberto Thi 08/10/2018 [facility] [id number] [facility] Swartz 08/10/2018 08/11/2018 [facility] Outpatient [id number] -[place] 12/08/2018 [facility] Outpatient [id number] [facility] Swartz 12/10/2018 [facility] Procedures Procedure Code Date Perfomer Comments Source Measurement of post-voiding residual urine and/or bladder capacity by ultrasound, non-imaging 41829 08/03/2018 [facility] Complex uroflowmetry (eg, calibrated electronic equipment) 81593 08/03/2018 [facility] Colonoscopy with polypectomy [id number] 07/22/[address] [facility] ESWL of kidney [id number] [facility] Complex uroflowmetry [id number] [facility] ESWL of kidney [id number] [facility] ESWL of kidney [id number] [facility] [place] Assessment and Plan No Data Provided for This Section Plan of Care Plan of Care Date Source Discharge Date 07/23/18 3:27am Disposition HOME, SELF-CARE Condition at Discharge Stable Instructions/Education Provided [facility] Catheter Care Urinary Retention Prescriptions See Medication Section Additional Instructions/Education REST; FOLLOW STROUD CATHETER INSTRUCTIONS; FOLLOW UP WITH YOUR UROLOGIST; TAKE MEDICATIONS PRESCRIBED; 07/23/2018 [facility] Social History Social History Date Source Smoking Status Start Date Stop Date Never Smoker 07/23/2018 [facility] Social History TypeResponse Substance Abuse Use: None. Alcohol Current, Type Beer. Frequency: 1-2 times per week. Smoking Status Never smoker; Exposure to Tobacco Smoke None; Cigarette Smoking Last 365 Days No; Reg Smoking Cessation Counseling No entered on: 05/11/14 05/11/2014 [facility] Social [facility] TypeResponse Substance Abuse Use: None. Alcohol Current, [...] Reg Smoking Cessation Counseling No 05/11/2014 [facility] [place] Family History No Data Provided for This Section Advance Directives Order Name Results Value Date Source Advance Directives Advance Directives Directive Response Recorded Date/Time Does the patient have an advance directive? No 12/27/11 3:13am Do you have a Directive to Physician? No 07/23/18 3:13am Do you have a Medical Power of Hand [place]? No 07/23/18 3:13am Do you have an [...] rights and responsibilities? Yes 07/23/18 3:13am 07/23/2018 [facility] Functional Status No Data Provided for This Section
--- OUTSIDE RECORDS SUMMARY | 2018-10-07 14:16 | XMS REPORT ---
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 Allergies, Adverse Reactions, Alerts This patient has no known allergies or adverse reactions. Medications This patient has no known medications. Results Test Description Test Time Test Comments Text Results Atomic Results Result Comments CHEST SINGLE (PORTABLE) 2018-10-07 13:47:00 [place] [address] Patient Name: NATASHA SWARTZ V MR #: [id number] : 1940 Age/Sex: 77/M Req #: [id number] Adm Physician: Ordered by: SHELDON JERONIMO MD Report #: [id number] Location: ER Room/Bed: Procedure: [id number] DX/CHEST SINGLE (PORTABLE) Exam Date: 10/07/18 Exam Time: 1330 REPORT STATUS: Signed EXAMINATION: CHEST SINGLE (PORTABLE) INDICATI ON: Altered mental status COMPARISON: None FINDINGS: TUBES and LINES: None. LUNGS: The lung volumes are normal. No focal consolidation or pulmonary edema. PLEURA: No pleural effusion or pneumothorax. HEART AND MEDIASTINUM: The cardiomediastinal silhouette is normal in size and contour. Atherosclerotic calcifications of the thoracic aorta. BONES AND SOFT TISSUES: No acute fracture or dislocation. UPPER ABDOMEN: No free air under the diaphragm. IMPRESSION: No focal pneumonia or pulmonary edema. Signed by: Joshua Breaux MD on 10/07/2018 1:49 PM Dictated By: JOSHUA BREAUX MD 134 Transcribed By: JUAN CARLOS on 10/07/18 134 COPY TO: SHELDON JERONIMO MD CT BRAIN WO 2018-10-07 13:43:00 [place] [address] Patient Name: NATASHA SWARTZ V MR #: [id number] : 1940 Age/Sex: 77/M Req #: [id number] Adm Physician: Ordered by: SHELDON JERONIMO MD Report #: [id number] Location: ER Room/Bed: Procedure: [id number] CT/CT BRAIN WO Exam Date: 10/07/18 Exam Time: 1315 REPORT STATUS: Signed EXAMINATION: Head CT HISTORY: Alteration of consciousness, no answering questions sensitivity for COMPARISON: None. TECHNIQUE: Multidetector axial images were obtained without contrast from the foramen magnum to the vertex . The images were reconstructed using brain and bone algorithms. Thin section brain images were reformatted into coronal and sagittal planes. Image quality: Motion/streaking artifact limits the evaluation of the skull base and posterior cranial fossa. Dose modulation, iterative reconstruction, and/or weight based adjustment of the mA/kV was utilized to reduce the radiation dose to as low as reasonably achievable. FINDINGS: Parenchyma: 1. A few scattered mostly bilateral frontal juxtacortical and periventricular white matter hypodensities, most likely nonspecific chronic microvascular ischemic changes. Otherwise no areas of abnormal density in the brain parenchyma. 2. No mass or hemorrhage. No CT evidence of acute territorial vascular insult. Extra-axial spaces:No abnormal density. No extra-axial fluid collections Brain volume: Normal for age. Ventricles: No hydrocephalus or displacement. Arteries: No density suggestive of thrombus. Dural sinuses: No abnormal density. Extra-axial spaces: No abnormal density. Foramen magnum: No mass, Chiari malformation, or basilar invagination. Sella: No obvious mass. Paranasal/mastoid sinuses: Hypopneumatization, sclerosis and partial opacification of the right mastoid air cells, possibly the middle ear as well, likely related to chronic inflammatory process. P artially visualized mucosal inflammatory thickening and partial opacification of the paranasal sinuses as well as postoperative changes. Skull/Scalp: No lytic or blastic lesions. No fractures. IMPRESSION: 1. No acute intracranial abnormalities. 2. Mild chronic microvascular ischemic changes. 3. Partially visualized likely chronic inflammatory changes of the paranasal sinuses and right mastoid air cells. Signed by: Dr. Camila Coronado M.D. on 10/07/2018 1:45 PM Dictated By: CAMILA CORONADO MD [id number] Transcribed By: JUAN CARLSO on 10/07/18 1345 COPY TO: SHELDON JERONIMO MD
[2018-10-07 15:13] LABS: EOSINOPHILS % (MANUAL) 1 % (0-7); LYMPHOCYTES % (MANUAL) 5 % (19-48); MONOCYTES % (MANUAL) 13 % (3.4-9.0); NEUTROPHILS % (MANUAL) 81 % (40-74); PLATELET ESTIMATE ADEQUATE; PLATELET MORPHOLOGY COMMENT NORMAL; RBC MORPHOLOGY COMMENT NORMAL
--- NOTE | 2018-10-07 15:54 | Diagnostic Imaging Report ---
PROCEDURE: CT ABDOMEN AND PELVIS WITHOUT CONTRAST TECHNIQUE: The abdomen and pelvis were scanned utilizing a multidetector helical scanner from the diaphragm to the lesser trochanter. No oral or intravenous contrast was administered per renal stone protocol. Coronal and sagittal multiplanar reformations were obtained. COMPARISON: CT abdomen and pelvis without contrast 12/27/2011. INDICATIONS: ALTERED MENTAL STATUS, HISTORY OF KIDNEY STONE FINDINGS: ABSENCE OF INTRAVENOUS CONTRAST DECREASES SENSITIVITY FOR DETECTION OF FOCAL LESIONS AND VASCULAR PATHOLOGY. LOWER THORAX: Unchanged linear scar in the lingula and right middle lobe. Lung bases otherwise unremarkable.. HEPATOBILIARY: No focal hepatic lesions. No biliary ductal dilatation. SPLEEN: No splenomegaly. PANCREAS: No focal masses or ductal dilatation. ADRENALS: No adrenal nodules. KIDNEYS/URETERS: 2 cm exophytic left upper pole lesion has average internal attenuation zero Hounsfield units and likely represents a simple cyst. Similar parenchymal lesion in the interpolar region of the left kidney seen on series 3 image 56. Subcentimeter exophytic lesion is too small to further characterize but likely represents a small cyst and is unchanged compared to prior study. Small presumed dystrophic cortical calcification in the left lower pole is also unchanged. No hydronephrosis or additional mass lesion. No calculi within the upper collecting systems or ureters. PELVIC ORGANS/BLADDER: The prostate is enlarged, similar to prior, with mass effect on the bladder base. The urinary bladder is incompletely distended and poorly evaluated. PERITONEUM / RETROPERITONEUM: No ascites. No pneumoperitoneum. LYMPH NODES: No pelvic sidewall, retroperitoneal, or mesenteric lymphadenopathy. VESSELS: Limited evaluation without intravenous contrast. The abdominal aorta is non-aneurysmal with atherosclerotic calcifications. GI TRACT: No gross distention or wall thickening. Multiple descending colon and sigmoid diverticula without adjacent inflammatory change. The appendix is unremarkable. No small bowel dilatation to suggest obstruction. The stomach is collapsed with prominent rugal folds. BONES AND SOFT TISSUES: No osseous destructive lesions. Multilevel degenerative disc changes and facet arthropathy of the lumbar spine. Small fat containing left inguinal hernia. No additional soft tissue abnormalities. IMPRESSION: No acute intra-abdominal or pelvic CT abnormalities. No urolithiasis per clinical query. Prostatomegaly with mass effect on the bladder base. Large bowel diverticulosis without evidence of diverticulitis. Atherosclerotic vascular disease. Dictated by: Pradeep Thomas M.D. on 10/07/2018 at 15:58 Electronically approved by: Pradeep Thomas M.D. on 10/07/2018 at 15:58
[2018-10-07 16:30] VITALS: BP 140/79
[2018-10-07 16:37] VITALS: BP 140/79
[2018-10-07 16:52] VITALS: BP 140/79
--- NOTE | 2018-10-07 16:59 | NUR ---
PATIENT ARRIVED ON THE UNIT AT 1616 PER STRETCHER FROM THE ER. PATIENT IN STABLE CONDITION WITH NO S/S OF RESPIRATORY DISTRESS. NO PAIN VOICED. SKINS INTACT- DRY SCABS NOTED TO RIGHT LOWER LEG/FOOT FROM SHINGLES. MD AWARE OF RIGHT LOWER LEG/FOOT- NO NEW ORDERS. ROOM AIR. CALL LIGHT IS WITHIN REACH, PATIENT INSTRUCTED TO CALL FOR ASSISTANCE NEEDED. DAUGHTER PRESENT IN ROOM.
[2018-10-07] MEDS ORDERED: ALBUTEROL/IPRATROPIUM 3 ML NEB NEB PRN (17:00)
[2018-10-07] MEDS ORDERED: ACETAMINOPHEN 325 MG TAB PO PRN (17:00)
--- NOTE | 2018-10-07 17:54 | Consultation ---
DATE OF CONSULTATION: 10/07/2018 REASON FOR CONSULTATION: Fever. HISTORY OF PRESENT ILLNESS: This patient who is a very pleasant gentleman comes in with fever. The patient apparently has been sick for a few days, comes in with low fever and not feeling well. Apparently, when he first came, he was confused and disoriented; however, since he came to the hospital, he is currently alert and oriented. The patient who has complicated medical history including severe rheumatoid arthritis, gout, benign prostatic hypertrophy, renal stone, asthma, comes in with the above complaint, but currently the patient is alert, oriented. His only main complaint is that he is having pain and swelling in several joints including upper extremities and lower extremities. The patient is started on [place], Rocephin, prednisone 10 mg daily, DuoNebs, Avodart, Tylenol No. 3, Flomax, folic acid, allopurinol. The patient had blood cultures and urine cultures. His white count is 18.24, hemoglobin 14.1, hematocrit 42, platelets 329. Sodium 140, potassium 4.0, creatinine 1.08. Liver enzyme within normal limit. The patient who had a CT of the abdomen and pelvis on 10/07/2018, it showed no acute finding, large bowel diverticulosis. His brain CT was no acute finding. His chest x-ray showed no focal pneumonia. REVIEW OF SYSTEMS: At the present time, HEENT: There is no headache, visual changes, or hearing changes. GI: There is no nausea, no vomiting, no diarrhea. CARDIAC: There is no arrhythmia. NEURO: No seizure activity. SKIN: There is no rash, but he does have diffuse erythema and swelling in several joints noted in the elbow and the wrist bilateral, also some interphalangeal joints. Of interest, since the admission, there is no fever. IMPRESSION: 1. Fever on admission, several joint achiness and swelling. I am concerned about rheumatoid arthritis flare-up. I will discuss with the attending if we can increase the steroid. 2. There is concern he may have infection, so I agree with Rocephin until we get blood culture and urine culture result. 3. Rheumatoid arthritis. 4. Benign prostatic hypertrophy. 5. History of gout. 6. Debility. Discussed with Dr. Lovell, discussed with the patient, and discussed with Medical team. Time spent 55 minutes. MD ALLISON Avelar/JANE /[id number]
[2018-10-07] MEDS: METHYLPREDNISOLONE SOD SUCC 40 MG/ML VIAL 1ML IV SCH (18:32)
[2018-10-07] MEDS ORDERED: BUDESONIDE 0.5MG/2 ML NEB INH SCH (19:00)
--- NOTE | 2018-10-07 19:23 | NUR ---
PATIENT IS RESTING IN BED AND IS IN STABLE CONDITION WITH NO S/S OF RESPIRATORY DISTRESS. NO PAIN VOICED. DAUGHTER PRESENT IN ROOM. BED ALARM ON. CALL LIGHT IS WITHIN REACH, INSTRUCTED TO CALL FOR ASSISTANCE NEEDED. BEDSIDE REPORT GIVEN TO ONCOMING NURSE.
[2018-10-07 19:25] VITALS: BP 128/64
--- NOTE | 2018-10-07 19:25 | NUR ---
PT IS RESTING IN BED WITH HIS DAUGHTER AT BEDSIDE. RESPIRATION IS EVEN AND UNLABORED, NO DISTRESS NOTED. BED IN THE LOWEST POSITION, LOCKED, BED ALARM ON, AND CALL LIGHT WITHIN REACH. WILL CONTINUE TO MONITOR.
[2018-10-07 20:00] VITALS: BP 128/64
[2018-10-07] MEDS: HEPARIN SOD (PORCINE) 5,000 UNIT/ML VIAL SC SCH (20:15)
--- NOTE | 2018-10-07 23:31 | History and Physical ---
Patient of [facility], Dr. Elisa Hoskins. HISTORY OF PRESENT ILLNESS: Charming, but unfortunate 77-year-old gentleman with history of asthma and sinus polyps, history of renal colic in the past, history of rheumatoid arthritis, on immunosuppression with prednisone and Orencia, history of gouty arthritis, confused for several days with low-grade fever. The family decided to take him to the emergency room. He did take Tylenol No. 3, apparently, his driver material handler thought he was having adverse reaction to Orencia and this was helped. History of sinus surgery, history of polyps, anosmia, renal stones, BPH, continues to work. No history of diabetes. History of life threatening angioneurotic edema, and give him non-steriodal agents. 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 Smoked a pack a day for 25 years, quit. He has had remote history of thyroid surgery. History of positive QuantiFERON in the past in 2011, did not tolerate. He was treated with INH. MEDICATIONS: Include Advair, albuterol, alendronate, allopurinol, amlodipine, beclomethasone cream, dutasteride, Flomax, folic acid, methotrexate, Orencia, prednisone, ProAir, and Tylenol No. 3. He was given extra prednisone for therapy for recent herpes zoster infection to right leg. PHYSICAL EXAMINATION: GENERAL: Well developed Sami man, in no acute distress. Vital signs: Temperature 99.6, pulse 89, respirations 20, blood pressure 140/79. HEENT: Head is normocephalic and atraumatic. Eyes, extraocular movements intact. LUNGS: Clear. HEART: Regular rhythm. ABDOMEN: Nontender. EXTREMITIES: Rheumatoid changes particularly at the wrists and hands. IMPRESSION: Urinary tract infection, benign prostatic hypertrophy. PLAN: Continue Rocephin. ID opinion to view his immunocompromise state. The patient has recently seen urologist. We will not involve Urology at this time. Consider urine cytology. Referral back to his urologist. Thank you for this kind referral. MD SERGEI Ramirez/JANE /[id number]
[2018-10-08] VITALS (9 sets, daily range): BP systolic 116–149; BP diastolic 63–81
[2018-10-08] MEDS: CEFTRIAXONE SOD 1 GM/NS 50 ML 50 ML IV SCH ×2 (01:46→15:23)
[2018-10-08 05:31] LABS: BASOPHILS % 0.2 % (0.0-1.0); HEMATOCRIT 40.5 % (38.2-49.6); HEMOGLOBIN 13.1 g/dL (14.0-18.0); LYMPHOCYTES # (AUTO) 0.6 (1.0-3.2); LYMPHOCYTES % 5.8 % (18.0-39.1); MEAN CORPUSCULAR HEMOGLOBIN 31.4 pg (28-32); MEAN CORPUSCULAR HGB CONC 32.3 g/dL (31-35); MEAN CORPUSCULAR VOLUME 97.1 fL (81-99); MONOCYTES # (AUTO) 0.2 (0.2-0.8); MONOCYTES % 2.1 % (4.4-11.3); NEUTROPHILS # (AUTO) 10.1 (2.1-6.9); NEUTROPHILS % 90.8 % (38.7-80.0); PLATELET COUNT 301 x10e3/uL (140-360); RED BLOOD COUNT 4.17 x10e6/uL (4.3-5.7); RED CELL DISTRIBUTION WIDTH 15.5 % (11.7-14.4)
[2018-10-08 05:56] LABS: ALANINE AMINOTRANSFERASE 26 IU/L (0-55); ALBUMIN 2.9 g/dL (3.5-5.0); ALBUMIN/GLOBULIN RATIO 0.7 (0.8-2.0); ALKALINE PHOSPHATASE 48 IU/L (40-150); ANION GAP 14.1 mmol/L (8-16); BLOOD UREA NITROGEN 26 mg/dL (7-26); BUN/CREATININE RATIO 33 (6-25); CALCIUM 8.7 mg/dL (8.4-10.2); CARBON DIOXIDE 23 mmol/L (22-29); CHLORIDE 107 mmol/L (98-107); CREATININE, SERUM 0.79 mg/dL (0.72-1.25); EST GLOMERULAR FILTRATION RATE > 60 ML/MIN (60-); GLUCOSE 134 mg/dL (74-118); POTASSIUM 4.1 mmol/L (3.5-5.1); SODIUM 140 mmol/L (136-145)
[2018-10-08] MEDS: METHYLPREDNISOLONE SOD SUCC 40 MG/ML VIAL 1ML IV SCH ×2 (06:07→18:22)
[2018-10-08 06:18] LABS: CREATINE KINASE MB 1.8 ng/mL (0-5.0)
--- NOTE | 2018-10-08 07:30 | NUR ---
Received patient this morning, alert and responsive, in bed and no respiratory distress, no c/o pains, call light within reach and rounds completed this morning, will monitor.
[2018-10-08] MEDS ORDERED: PREDNISONE 10 MG TAB PO SCH (08:00)
[2018-10-08] MEDS ORDERED: VITAMIN D3 50 MCG PO SCH (09:00)
[2018-10-08] MEDS: TAMSULOSIN HCL 0.4 MG CAP PO SCH (09:16)
[2018-10-08] MEDS: AMLODIPINE BESYLATE 10 MG TAB PO SCH (09:16)
[2018-10-08] MEDS: ALLOPURINOL 100 MG TAB PO SCH (09:16)
[2018-10-08] MEDS: DUTASTERIDE 0.5 MG CAP PO SCH (09:16)
[2018-10-08] MEDS: CHOLECALCIFEROL 1,000 UNIT TAB PO SCH (09:16)
[2018-10-08] MEDS: FOLIC ACID 1 MG TAB PO SCH (09:16)
[2018-10-08] MEDS: HEPARIN SOD (PORCINE) 5,000 UNIT/ML VIAL SC SCH ×2 (09:21→21:45)
[2018-10-08 10:24] LABS: ANISOCYTOSIS SLIGHT; EOSINOPHILS % (MANUAL) 1 % (0-7); LYMPHOCYTES % (MANUAL) 93 % (19-48); MONOCYTES % (MANUAL) 3 % (3.4-9.0); NEUTROPHILS % (MANUAL) 2 % (40-74); PLATELET ESTIMATE ADEQUATE; PLATELET MORPHOLOGY COMMENT NORMAL; RBC MORPHOLOGY COMMENT NORMAL
[2018-10-08] MEDS: ACETAMINOPHEN/CODEINE 300MG - 30MG TAB PO PRN ×2 (15:23→21:48)
--- NOTE | 2018-10-08 19:00 | NUR ---
RECEIVED PATIENT IN BEDSIDE REPORT. PATIENT RESTING IN BED AT THIS TIME. SLIGHT PAIN REPORTED IN SHOULDER, NOT TIME FOR MEDICATION YET. NO S&S OF DISTRESS NOTED. L AC 18G IV ASYMPTOMATIC. BED LOCKED IN LOWEST POSITION, SIDE RAILS UPX2, CALL LIGHT IN REACH.
--- NOTE | 2018-10-08 19:12 | NUR ---
Patient alert and responsive, report given to on coming nurse and rounds completed.
[2018-10-09] VITALS: BP 129/75
[2018-10-09] MEDS: CEFTRIAXONE SOD 1 GM/NS 50 ML 50 ML IV SCH (02:13)
[2018-10-09 04:00] VITALS: BP_SYST 136; BP_SYST 145; BP_DIAS 60; BP_DIAS 83
[2018-10-09 06:05] LABS: BASOPHILS % 0.1 % (0.0-1.0); HEMATOCRIT 37.8 % (38.2-49.6); HEMOGLOBIN 12.4 g/dL (14.0-18.0); LYMPHOCYTES # (AUTO) 0.6 (1.0-3.2); LYMPHOCYTES % 4.7 % (18.0-39.1); MEAN CORPUSCULAR HGB CONC 32.8 g/dL (31-35); MEAN CORPUSCULAR VOLUME 97.4 fL (81-99); MONOCYTES # (AUTO) 0.5 (0.2-0.8); MONOCYTES % 4.2 % (4.4-11.3); NEUTROPHILS # (AUTO) 10.9 (2.1-6.9); NEUTROPHILS % 90.3 % (38.7-80.0); PLATELET COUNT 292 x10e3/uL (140-360); RED BLOOD COUNT 3.88 x10e6/uL (4.3-5.7); RED CELL DISTRIBUTION WIDTH 15.2 % (11.7-14.4)
[2018-10-09] MEDS: METHYLPREDNISOLONE SOD SUCC 40 MG/ML VIAL 1ML IV SCH (06:05)
[2018-10-09 06:22] LABS: ALANINE AMINOTRANSFERASE 27 IU/L (0-55); ALBUMIN 2.9 g/dL (3.5-5.0); ALBUMIN/GLOBULIN RATIO 0.8 (0.8-2.0); ALKALINE PHOSPHATASE 43 IU/L (40-150); ANION GAP 13.1 mmol/L (8-16); BLOOD UREA NITROGEN 35 mg/dL (7-26); BUN/CREATININE RATIO 45 (6-25); CALCIUM 8.6 mg/dL (8.4-10.2); CARBON DIOXIDE 24 mmol/L (22-29); CHLORIDE 108 mmol/L (98-107); CREATININE, SERUM 0.77 mg/dL (0.72-1.25); EST GLOMERULAR FILTRATION RATE > 60 ML/MIN (60-); GLUCOSE 134 mg/dL (74-118); POTASSIUM 4.1 mmol/L (3.5-5.1); SODIUM 141 mmol/L (136-145)
[2018-10-09 06:50] LABS: BAND NEUTROPHILS % (MANUAL) 6 %; LYMPHOCYTES % (MANUAL) 8 % (19-48); MONOCYTES % (MANUAL) 5 % (3.4-9.0); NEUTROPHILS % (MANUAL) 81 % (40-74); PLATELET ESTIMATE ADEQUATE; PLATELET MORPHOLOGY COMMENT NORMAL; RBC MORPHOLOGY COMMENT NORMAL
[2018-10-09 07:30] VITALS: BP 156/83
--- NOTE | 2018-10-09 07:30 | NUR ---
REC'D PT AAOX3, ON ROOM AIR, NO S/S OF DISTRESS, IV TO THE LT AC 18 GAUGE THAT IS PATENT AND INTACT. NON-SKID SOCKS ON BILATERAL FEET. SIDE RAILS UP X2, BED IN LOWEST POSITION, AND CALL ASENCIO WITHIN REACH.
[2018-10-09 08:01] VITALS: BP 154/87
[2018-10-09] MEDS ORDERED: CEFUROXIME250 MG PO ×2 (08:53→13:32)
[2018-10-09] MEDS: HEPARIN SOD (PORCINE) 5,000 UNIT/ML VIAL SC SCH (09:00)
--- NOTE | 2018-10-09 10:00 | NUR ---
CM SPOKE TO PATIENT AT BEDSIDE REGARDING IMM LETTER. IMM LETTER GIVEN WITH EXPLANATION BASED ON ANTICIPATED DISCHARGE DATE. ORIGINAL SIGNED AND PLACED IN CHART; COPY OF ORIGINAL DOCUMENT GIVEN TO PATIENT AT BEDSIDE AND PLACED IN CARE TRANSITION FOLDER. CM CONTACT INFORMATION GIVEN TO PATIENT FOR ANY NEEDS OR CONCERNS. PATIENT WITH NO FURTHER QUESTIONS.
[2018-10-09] MEDS: DUTASTERIDE 0.5 MG CAP PO SCH (10:30)
[2018-10-09] MEDS: AMLODIPINE BESYLATE 10 MG TAB PO SCH (10:31)
[2018-10-09] MEDS: CHOLECALCIFEROL 1,000 UNIT TAB PO SCH (10:31)
[2018-10-09] MEDS: ALLOPURINOL 100 MG TAB PO SCH (10:31)
[2018-10-09] MEDS: FOLIC ACID 1 MG TAB PO SCH (10:31)
[2018-10-09] MEDS: TAMSULOSIN HCL 0.4 MG CAP PO SCH (10:31)
[2018-10-09 11:57] VITALS: BP 156/83
[2018-10-09 11:58] LABS: BILIRUBIN,URINE NEGATIVE (NEGATIVE); CLARITY,URINE CLEAR (CLEAR); COLOR,URINE YELLOW (YELLOW); KETONES,URINE NEGATIVE (NEGATIVE); LEUKOCYTE ESTERASE ,URINE NEGATIVE (NEGATIVE); NITRITE,URINE NEGATIVE (NEGATIVE); PROTEIN,URINE DIPSTICK NEGATIVE (NEGATIVE); URINE UROBILINOGEN 0.2 mg/dL (0.2 - 1)
[2018-10-09 12:16] LABS: BACTERIA,URINE MODERATE /HPF; EPITHELIAL CELLS,URINE RARE /LPF; RBC,URINE 0-5 /HPF (0-5); WBC,URINE (MAN) 0-5 /HPF (0-5)
[2018-10-09] MEDS ORDERED: ONDANSETRON HCL 4 MG ORAL DISINTEGRATING TAB PO PRN (12:30)
--- NOTE | 2018-10-09 13:18 | NUR ---
PAGED DR. MONTILLA TO NOTIFY OF URINALYSIS RESULTS.
--- NOTE | 2018-10-09 13:20 | NUR ---
DR. MONTILLA RETURNED CALL. READ URINALYSIS RESULTS. GAVE OKAY TO BE DISCHARGED.
[2018-10-09] MEDS ORDERED: PREDNISONE20 MG PO (13:30)
--- NOTE | 2018-10-09 14:20 | NUR ---
PATIENT'S IV REMOVED WITHOUT ANY COMPLICATIONS. GAVE AND EXPLAINED DISCHARGE PAPERS AND PRESCRIPTIONS. PATIENT UNDERSTOOD. DAUGHTER ARRIVED TO PLUG MAKER PATIENT. NO S/S OF DISTRESS. GAVE AND EXPLAINED DISCHARGE PAPERS AND PRESCRIPTIONS AND PATIENT UNDERSTOOD. DAUGHTER ARRIVED TO PICK PATIENT UP. ESCORTED PATIENT AND DAUGHTER TO THE FRONT OF THE LOBBY.
--- NOTE | 2018-10-09 15:48 | Discharge Summary ---
Charming but unfortunate 77-year-old gentleman with history of bronchial asthma and sinus polyps, history of renal colic in the past, rheumatoid arthritis on immunosuppression. Orencia and prednisone recently held. History of gouty arthritis, confused for several days with low-grade fever. He has a history of BPH, history of anosmia, history of angioneurotic edema when given nonsteroidal agents. 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 Smoked a pack a day for 20 years, quit. Remote history of thyroid surgery. History of positive QuantiFERON test in 2011, treated with INH. The patient was treated with Rocephin. He was also treated with corticosteroids. Cultures were negative. He did have microscopic hematuria however. Urinary tract infection was suspected. The patient defervesced and was discharged on prednisone 20 mg and Ceftin 250 b.i.d. to be followed by Dr. Hoskins as an outpatient. Repeat urinalysis is pending. White count on admission was 18,000 with 15% monocytes, possibility of viral illness is considered. On the 4th, lymphocyte count went up to 93%. There were no white cells in the urine but 21 to 50 rbc's. Chest x-ray was clear. CT of the brain revealed no masses or strokes. CT of the abdomen revealed left upper lobe pole lesion, felt to be likely a cyst. There was BPH noted. Diverticuli were noted. We will follow up with Dr. Ness. A repeat urinalysis is pending. Resume his home medications with the exception of Orencia. Follow up with Dr. Hoskins and myself and Dr. Ness as an outpatient. Pradeep Lovell MD DS/MODL /[id number] cc: MD Elisa Blum
--- NOTE | 2018-10-15 00:42 | Consultation ---
DATE OF CONSULTATION: 10/07/2018 ADDENDUM: This patient was seen and examined. Chart reviewed. PHYSICAL EXAMINATION: GENERAL: Currently alert, oriented, does not seem to be in acute distress. VITALS SIGNS: Stable. Currently afebrile. HEENT: He is not icteric. NECK: Supple. CHEST: Clear. HEART: S1, S2. No S3, S4, or murmur. ABDOMEN: Soft. EXTREMITIES: His joint seem to be swollen, but there is no erythema. I can tell some of them are warm. SKIN: There is no rash. IMPRESSION: Physical examination reveal flare up of arthritis. We will keep him on antibiotic. Await blood cultures factor. Complement level discussed with the attending. MD ALLISON Avelar/JANE /[id number]
== END 2018-10-09 14:38 | disposition home or self-care (01) | DRG 690 ==
LOC: ER 12:15 → ERHOLD 14:02 → MED/SURG3 16:17
PROVIDERS: ADMIT Internal Medicine Pulmonary Disease; ATTEND Internal Medicine Pulmonary Disease
DX: N30.91 Cystitis, unspecified with hematuria (principal); M06.9 Rheumatoid arthritis, unspecified; N40.0 Benign prostatic hyperplasia without lower urinary tract symptoms; D89.9 Disorder involving the immune mechanism, unspecified; M10.9 Gout, unspecified; R53.81 Other malaise; J45.909 Unspecified asthma, uncomplicated; N20.0 Calculus of kidney; K57.90 Diverticulosis of intestine, part unspecified, without perforation or abscess without bleeding; R31.29 Other microscopic hematuria
CPT/HCPCS: 36415; 70450; 71045; 74176; 80053; 80307; 80329; 81001; 82140; 82550; 82553; 82948; 83735; 84443; 84484; 85025; 85610; 85730; 87040; 87086; 93005; 94640; 99284; J0696; J1644; J2920; J7030; J7040

== ENCOUNTER 2018-10-13 11:57 | Inpatient (IN) | payer MEDICARE ==
[~2018-10-13] VITALS: Ht 172.7 cm; Wt 66.7 kg
[~2018-10-13 11:57] MED LIST changes: +CEFUROXIME250 MG PO; +FLOMAX0.4 MG PO; +FUROSEMIDE40 MG PO; +ORENCIA125 MG/1 M SC; +PREDNISONE10 MG PO; +PREDNISONE20 MG PO; +vitamin d3 PO
--- OUTSIDE RECORDS SUMMARY | 2018-10-13 12:03 | XMS REPORT | Continuity of Care Document ---
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 Name Role Phone [facility] Information [facility] Unavailable Unavailable Problems Problem Status Onset Date Classification Date Reported Comments Source XRAY Active 06/22/2018 [facility] KIDNEY Active 07/11/2016 [facility] 592.0 Active 04/28/2014 [facility] UNK Active 04/28/2014 [facility] 592.1/592.0 Active 04/28/2014 [facility] RENAL STONE Active 03/11/2014 [facility] 592.0,592.1/KSTONE PROTOCOL NO IV AND Active 02/12/2013 [facility] STONE 592.0 592.1 / CPT 62674 [id number] Active 01/06/2012 [facility] Newborn1 Resolved 03/07/2010 Problem 08/12/2018 This problem was automatically added by [employer] for patients less than 28 days old. [facility] Gout Active Problem 08/12/2018 [facility] Hypertension Active Problem 08/12/2018 [facility] Renal stones Resolved Problem 08/12/2018 [facility] Ureteral stone Active Problem 08/12/2018 [facility] CALCULUS OF KIDNEY Active [facility] CALCULUS OF URETER Active [facility] +PPD Active [facility] NONSP REVA SKN TEST WO TB Active [facility] PNEUMONIA Active [facility] PNEUMONIA, ORGANISM NOS Active [facility] M25.521 Active [facility] PAIN IN RIGHT ELBOW Active [facility] COUGH Active [facility] COUGH Active [facility] KUB Active [facility] CALCULUS OF KIDNEY Active [facility] CHEST PAIN, UNSPECIFIED Active [facility] PAIN IN RIGHT HAND Active [facility] PAIN IN LEFT HAND Active [facility] Medications Medication Details Route Status Patient Instructions Ordering Provider Order Date Source Dutasteride 0.5 MG Oral Capsule [Avodart] 0.5 mg=1 cap, PO, Daily, # 90 cap, 1 Refill(s), Pharmacy: [facility] [id number] Active 08/10/2018 [facility] tamsulosin 0.4 mg oral capsule 0.4 mg=1 cap, PO, Daily, # 90 cap, 1 Refill(s), Pharmacy: [facility] [id number] Active 08/10/2018 [facility] tamsulosin 0.4 mg oral capsule 0.4 mg=1 cap, PO, Daily, 0 Refill(s) Active 07/27/2018 [facility] Alendronic acid 10 MG Oral Tablet 10 mg=1 tab, PO, Daily, 0 Refill(s) Active 07/27/2018 [facility] methotrexate 2.5 mg oral tablet PO, 0 Refill(s) Active 07/27/2018 [facility] Nitrofurantoin 100 mg, PO, BID, # 14 cap, 0 Refill(s) Active 07/27/2018 [facility] Vitamin D3 0 Refill(s) Active 07/27/2018 [facility] Silodosin (Rapaflo) 4 Mg Capsule, 4 Mg Oral Daily Active 07/14/2018 [facility] Dutasteride/Tamsulosin Hcl (Licha 0.5-0.4 Mg Capsule) 1 Each Cpmp.24hr, 1 Tab Oral Daily Active 04/18/2015 [facility] Folic Acid 1 Mg Tablet, 1 Tab Oral Twice A Day Active 04/18/2015 [facility] Tocilizumab (Actemra) 200 Mg/10 Ml Vial, 1 1 Mothly Active 04/18/2015 [facility] Pyridium 100 mg oral tablet 100 mg=1 tab, PO, TID, # 21 tab, 0 Refill(s) Active 05/18/2014 [facility] Ciprofloxacin 500 MG Oral Tablet [Cipro] 500 mg=1 tab, PO, Q12H, # 14 tab, 0 Refill(s) Active 05/18/2014 [facility] Hydromorphone 0.3 mg, Route: IVP, Q3H, Dosing Weight 68.182, kg, PRN Pain Score 4-6, Start date: 05/18/14 10:06:00, Duration: 30 day, Stop date: 06/17/14 10:05:00 Inactive 05/18/2014 [facility] Ciprofloxacin 2 MG/ML Injectable Solution [Cipro] 400 mg, Route: IVPB, ONCE, Dosing Weight 68.182, kg, Start date: 05/18/14 9:25:00, Stop date: 05/18/14 9:25:00 Inactive 05/18/2014 [facility] Calcium Chloride 0.0014 MEQ/ML / Potassium Chloride 0.004 MEQ/ML / Sodium Chloride 0.103 MEQ/ML / Sodium Lactate 0.028 MEQ/ML Injectable Solution 1,000 mL, Rate: 25 ml/hr, Infuse over: 40 hr, Route: IV, Dosing Weight 68.182 kg, Total Volume: 1,000, Start date: 05/18/14 8:20:00, Duration: 30 day, Stop date: 06/17/14 8:19:00 Inactive 05/18/2014 [facility] ondansetron 4 mg, 2 mL, Route: IVP, Drug form: INJ, ONCE, Dosing Weight 68.182, kg, PRN Nausea & Vomiting, Start date: 01/10/12 12:51:00 IVP No Longer Active [facility] 01/10/2012 [facility] acetaminophen-hydrocodone 325 mg-5 mg oral tablet 2 tab, Route: PO, Drug Form: TAB, Dosing Weight 68.182, kg, Q4H, PRN Pain Score 4-6, Start date: 01/10/12 12:51:00, Duration: 30 day, Stop date: 02/09/12 12:50:00 PO No Longer Active [facility] 01/10/2012 [facility] niCARdipine 0.25 mg, 0.1 mL, Route: IVP, Drug form: INJ, Q5Min, Dosing Weight 68.182, kg, PRN Elevated BP, Start date: 01/10/12 12:51:00, Duration: 4 doses or times, Stop date: Limited # of times IVP No Longer Active [facility] 01/10/2012 [facility] fentanyl 25 microgram, 0.5 mL, Route: IVP, Drug form: INJ, Q5Min, Dosing Weight 68.182, kg, PRN Pain Score 4-6, Start date: 01/10/12 12:51:00, Duration: 4 doses or times, Stop date: Limited # of times IVP No Longer Active [facility] 01/10/2012 [facility] metoprolol 1 mg, 1 mL, Route: IVP, Drug form: INJ, Q5Min, Dosing Weight 68.182, kg, PRN Elevated BP, Start date: 01/10/12 12:51:00, Duration: 5 doses or times, Stop date: Limited # of times IVP No Longer Active [facility] 01/10/2012 [facility] labetalol 5 mg, 1 mL, Route: IVP, Drug form: INJ, Q5Min, Dosing Weight 68.182, kg, PRN Elevated BP, Start date: 01/10/12 12:51:00, Duration: 5 doses or times, Stop date: Limited # of times IVP No Longer Active [facility] 01/10/2012 [facility] hydrALAZINE 5 mg, 0.25 mL, Route: IVP, Drug form: INJ, Q5Min, Dosing Weight 68.182, kg, PRN Elevated BP, Start date: 01/10/12 12:51:00, Duration: 4 doses or times, Stop date: Limited # of times IVP No Longer Active [facility] 01/10/2012 [facility] Lactated Ringers Injection IV 1,000 mL 1,000 mL, Rate: 50 ml/hr, Infuse over: 20 hr, Route: IV, kg, Total Volume: 1,000, Start date: 01/10/12 12:51:00, Duration: 30 day, Stop date: 02/09/12 12:50:00 IV No Longer Active [facility] 01/10/2012 [facility] naloxone 0.04 mg, 0.04 mL, Route: IVP, Drug form: INJ, Q2MIN, Dosing Weight 68.182, kg, PRN Narcotic Reversal, Start date: 01/10/12 12:51:00, Duration: 8 doses or times, Stop date: Limited # of times IVP No Longer Active [facility] 01/10/2012 [facility] flumazenil 0.2 mg, 2 mL, Route: IVP, Drug form: INJ, PRN, Dosing Weight 68.182, kg, PRN Benzodiazepine Reversal, Initial dose, Start date: 01/10/12 12:51:00, Duration: 30 day, Stop date: 02/09/12 11:50:00 IVP No Longer Active [facility] 01/10/2012 [facility] meperidine 12.5 mg, 0.25 mL, Route: IVP, Drug form: INJ, Q30Min, Dosing Weight 68.182, kg, PRN Other -See Comment, For shivering, Start date: 01/10/12 12:51:00, Duration: 2 doses or times, Stop date: Limited # of times IVP No Longer Active [facility] 01/10/2012 [facility] morphine Sulfate 2 mg, 1 mL, Route: IVP, Drug form: INJ, Q5Min, Dosing Weight 68.182, kg, PRN Pain Score 4-6, Start date: 01/10/12 12:51:00, Duration: 8 doses or times, Stop date: Limited # of times IVP No Longer Active [facility] 01/10/2012 [facility] hydromorphone 0.5 mg, 0.5 mL, Route: IVP, Drug form: SOLN, Q5Min, Dosing Weight 68.182, kg, PRN Pain Score 4-6, Start date: 01/10/12 12:51:00, Duration: 5 doses or times, Stop date: Limited # of times IVP No Longer Active [facility] 01/10/2012 [facility] Ditropan 5 mg, Route: PO, Drug form: TAB, ONCE, Dosing Weight 68.182, kg, Start date: 01/10/12 11:41:00, Stop date: 01/10/12 11:41:00 PO No Longer Active [facility] 01/10/2012 [facility] Pyridium 200 mg, Route: PO, Drug form: TAB, ONCE, Dosing Weight 68.182, kg, Start date: 01/10/12 11:41:00, Stop date: 01/10/12 11:41:00 PO No Longer Active [facility] 01/10/2012 [facility] gentamicin 120 mg, Route: IVPB, ONCE, Dosing Weight 68.182, kg, Start date: 01/10/12 8:02:00, Stop date: 01/10/12 8:02:00 IVPB No Longer Active [facility] 01/10/2012 [facility] Ancef 1 gm, Route: IVPB, ONCE, Dosing Weight 68.182, kg, Start date: 01/10/12 8:02:00, Duration: 1 doses or times, Stop date: 01/10/12 8:02:00 IVPB No Longer Active [facility] 01/10/2012 [facility] Lactated Ringers Injection IV 1000 mL 1,000 mL, Rate: 25 ml/hr, Infuse over: 40 hr, Route: IV, Dosing Weight 68.182 kg, Total Volume: 1,000, Start date: 01/10/12 7:46:00, Duration: 30 day, Stop date: 02/09/12 7:45:00 IV No Longer Active [facility] 01/10/2012 [facility] folic acid 1 mg oral tablet 1 mg, 1 tab, PO, Daily, 30 tab, Substitution Allowed, TAB PO Active 01/08/2012 [facility] allopurinol 100 mg oral tablet 100 mg, 1 tab, PO, BID, 180 tab, Substitution Allowed, TAB PO Active 01/08/2012 [facility] amLODipine 10 mg oral tablet 10 mg, 1 tab, PO, Daily, 30 tab, Substitution Allowed, TAB PO Active 01/08/2012 [facility] prednisoLONE 5 mg oral tablet 5 mg, 1 tab, PO, Daily, 7 tab, Substitution Allowed, TAB PO Active 01/08/2012 [facility] Advair Diskus 250 mcg-50 mcg inhalation powder 1 puff, INHALATION, BID, 28 ea, Substitution Allowed, Maintenance, PWDR INHALATION Active 01/08/2012 [facility] Allopurinol 100 Mg Tablet Daily Active [facility] Amlodipine Besylate 10 Mg Tablet Daily Active [facility] Cholecalciferol (Vitamin D3) (Vitamin D) 400 Unit Capsule Daily Active [facility] Folic Acid 1 Mg Tablet Daily Active [facility] Methotrexate Sodium (Methotrexate) 2.5 Mg Tablet Daily Active [facility] Prednisolone (Millipred) 5 Mg Tablet Daily Active [facility] Allergies, Adverse Reactions, Alerts Substance Category Reaction Severity Reaction type Status Date Reported Comments Source NSAIDS (Non-Steroidal Anti-Inflamma Severe Allergy to Substance Active 12/27/2011 [facility] Aspirin Unknown Allergy to Substance Active 07/23/2018 [facility] NSAIDs Assertion Drug allergy Active [facility] Immunizations No Data Provided for This Section Results Order Name Results Value Reference Range Date Interpretation Comments Source Urine color determination YELLOW YELLOW 07/23/2018 [facility] Urine clarity CLEAR CLEAR 07/23/2018 [facility] Specific gravity of Urine by Test strip 1.005 1.010 - 1.025 07/23/2018 [facility] Urine pH measurement by automated test strip 5 5 - 7 07/23/2018 [facility] Urine leukocyte esterase detection by dipstick NEGATIVE NEGATIVE 07/23/2018 [facility] Urine nitrite detection NEGATIVE NEGATIVE 07/23/2018 [facility] Urine protein measurement by test strip (mass/volume) NEGATIVE NEGATIVE 07/23/2018 [facility] Urine glucose detection NEGATIVE NEGATIVE 07/23/2018 [facility] Urine ketones detection by automated test strip NEGATIVE NEGATIVE 07/23/2018 [facility] Urine urobilinogen measurement by test strip (mass/volume) 0.2 0.2 - 1 07/23/2018 [facility] Urine total bilirubin measurement (mass/volume) NEGATIVE NEGATIVE 07/23/2018 [facility] Urine erythrocytes detection 3+ NEGATIVE 07/23/2018 [facility] Automated urine sediment leukocyte count by microscopy (number/high power field) 0-5 0 - 5 07/23/2018 [facility] Erythrocytes detection in urine sediment by light microscopy 11-20 0 - 5 07/23/2018 [facility] Bacteria detection in urine sediment by light microscopy FEW NONE 07/23/2018 [facility] Epithelial cells detection in urine sediment by light microscopy FEW NONE 07/23/2018 [facility] Blood leukocytes automated count (number/volume) 16.61 4.8 - 10.8 07/23/2018 [facility] Blood erythrocytes automated count (number/volume) 4.59 4.3 - 5.7 07/23/2018 [facility] Blood hemoglobin measurement (moles/volume) 14.7 14.0 - 18.0 07/23/2018 [facility] Automated blood hematocrit (volume fraction) 45.0 38.2 - 49.6 07/23/2018 [facility] Automated erythrocyte mean corpuscular volume 98.0 81 - 99 07/23/2018 [facility] Automated erythrocyte mean corpuscular hemoglobin (mass per erythrocyte) 32.0 28 - 32 07/23/2018 [facility] Automated erythrocyte mean corpuscular hemoglobin concentration measurement (mass/volume) 32.7 31 - 35 07/23/2018 [facility] RDW BldCo-Rto 14.6 11.7 - 14.4 07/23/2018 [facility] Automated blood platelet count (count/volume) 310 140 - 360 07/23/2018 [facility] Automated blood segmented neutrophil count as percentage of total leukocytes 88.5 38.7 - 80.0 07/23/2018 [facility] Automated blood lymphocyte count as percentage ot total leukocytes 4.3 18.0 - 39.1 07/23/2018 [facility] Automated blood monocyte count as percentage of total leukocytes 5.5 4.4 - 11.3 07/23/2018 [facility] Automated blood eosinophil count as percentage of total leukocytes 0.4 0.0 - 6.0 07/23/2018 [facility] Automated blood basophil count as percentage of total leukocytes 0.2 0.0 - 1.0 07/23/2018 [facility] IM GRANULOCYTES % 1.1 0.0 - 1.0 07/23/2018 [facility] Automated blood neutrophil count 14.7 2.1 - 6.9 07/23/2018 [facility] Blood lymphocytes count (number/volume) 0.7 1.0 - 3.2 07/23/2018 [facility] Blood monocytes automated count (number/volume) 0.9 0.2 - 0.8 07/23/2018 [facility] Automated blood eosinophil count 0.1 0.0 - 0.4 07/23/2018 [facility] Automated blood basophil count (count/volume) 0.0 0.0 - 0.1 07/23/2018 [facility] Absolute Immature Granulocyte (auto 0.19 0 - 0.1 07/23/2018 [facility] Serum or plasma sodium measurement (moles/volume) 134 136 - 145 07/23/2018 [facility] Serum or plasma potassium measurement (moles/volume) 4.1 3.5 - 5.1 07/23/2018 [facility] Serum or plasma chloride measurement (moles/volume) 101 98 - 107 07/23/2018 [facility] Serum or plasma carbon dioxide, total measurement (moles/volume) 21 22 - 29 07/23/2018 [facility] Serum or plasma anion gap 16.1 8 - 16 07/23/2018 [facility] Serum or plasma urea nitrogen measurement (mass/volume) 22 7 - 26 07/23/2018 [facility] Serum or plasma creatinine measurement (mass/volume) 1.17 0.72 - 1.25 07/23/2018 [facility] Serum or plasma urea nitrogen/creatinine mass ratio 19 6 - 25 07/23/2018 [facility] Estimated glomerular filtration rate (GFR) determination > 60 60 07/23/2018 [facility] Glucose measurement 115 74 - 118 07/23/2018 [facility] Serum or plasma calcium measurement (mass/volume) 9.5 8.4 - 10.2 07/23/2018 [facility] Serum or plasma total bilirubin measurement (mass/volume) 0.9 0.2 - 1.2 07/23/2018 [facility] Aspartate Amino Transf (AST/SGOT) 25 5 - 34 07/23/2018 [facility] Serum or plasma alanine aminotransferase measurement (enzymatic activity/volume) 21 0 - 55 07/23/2018 [facility] Serum or plasma protein measurement (mass/volume) 8.0 6.5 - 8.1 07/23/2018 [facility] Serum or plasma albumin measurement (mass/volume) 3.7 3.5 - 5.0 07/23/2018 [facility] Plasma globulin measurement (mass/volume) 4.3 2.3 - 3.5 07/23/2018 [facility] Serum or plasma albumin/globulin mass ratio 0.9 0.8 - 2.0 07/23/2018 [facility] Serum or plasma alkaline phosphatase measurement (enzymatic activity/volume) 55 40 - 150 07/23/2018 [facility] CHEM PANEL BUN 24 7 - 22 05/11/2014 [facility] CHEM PANEL eGFR 67 05/11/2014 <sup>1</sup>Result [...] should be multiplied by the estimated BMI. [facility] CHEM PANEL Chloride Lvl 107 95 - 109 05/11/2014 [facility] CHEM PANEL CO2 31 24 - 32 05/11/2014 [facility] CHEM PANEL Potassium Lvl 4.3 3.5 - 5.1 05/11/2014 [facility] CHEM PANEL Sodium Lvl 141 135 - 145 05/11/2014 [facility] CHEM PANEL Calcium Lvl 9.0 8.5 - 10.5 05/11/2014 [facility] CHEM PANEL Creatinine Lvl 1.1 0.5 - 1.4 05/11/2014 [facility] CHEM PANEL Glucose Lvl 107 70 - 99 05/11/2014 <sup>2</sup>Interpretive Data: Adult reference range values reflect the clinical guidelines
of the [place] [employer]. [facility] CHEM PANEL AGAP 7.3 10.0 - 20.0 05/11/2014 [facility] PT 13.1 12.0 - 14.7 05/11/2014 [facility] PTT 27.3 22.9 - 35.8 05/11/2014 <sup>5</sup>Interpretive Data: Heparin Therapeutic Range: 57 - 92 Seconds [facility] INR 0.99 0.85 - 1.17 05/11/2014 <sup>4</sup>Interpretive Data: RECOMMENDED RANGES FOR PROTIME INR:
2.0-3.0 for most medical and surgical thromboembolic states.
2.5-3.5 for artificial heart valves and recurrent embolism.

INR SHOULD BE USED ONLY FOR PATIENTS ON STABLE ANTICOAGULANT THERAPY. [facility] MCHC 33.0 32.0 - 36.0 05/11/2014 [facility] MPV 11.0 7.4 - 10.4 05/11/2014 [facility] Platelet 164 133 - 450 05/11/2014 [facility] RBC 4.33 4.70 - 6.10 05/11/2014 [facility] MCH 35.4 27.0 - 31.0 05/11/2014 [facility] RDW 13.5 11.5 - 14.5 05/11/2014 [facility] MCV 107.2 80.0 - 94.0 05/11/2014 [facility] Hct 46.4 42.0 - 54.0 05/11/2014 [facility] Hgb 15.3 14.0 - 18.0 05/11/2014 [facility] WBC 8.0 3.7 - 10.4 05/11/2014 [facility] Monocytes # 1.0 0.0 - 0.8 05/11/2014 [facility] Eosinophils # 0.8 0.0 - 0.5 05/11/2014 [facility] Lymphocytes # 0.9 1.0 - 5.5 05/11/2014 [facility] Macrocyte 2+ *ABN* (05/11/14 12:13 PM) None Seen 05/11/2014 [facility] Eosinophils 10.1 0.0 - 4.0 05/11/2014 [facility] Segs-Bands # 5.2 1.5 - 8.1 05/11/2014 [facility] Monocytes 12.5 2.0 - 12.0 05/11/2014 [facility] Basophils 0.6 0.0 - 1.0 05/11/2014 [facility] HEMATOLOGY Lymphocytes 11.9 20.0 - 40.0 05/11/2014 [facility] HEMATOLOGY Segs 64.9 45.0 - 75.0 05/11/2014 [facility] URINE AND STOOL UA Leuk Est Negative (05/11/14 12:13 PM) Negative 05/11/2014 [facility] URINE AND STOOL UA RBC 2 0 - 2 05/11/2014 [facility] URINE AND STOOL UA WBC 1 0 - 5 05/11/2014 [facility] URINE AND STOOL UA Mucus Few /LPF None Seen /LPF 05/11/2014 [facility] URINE AND STOOL UA Sperm None Seen /HPF None Seen /HPF 05/11/2014 <sup>3</sup>Result Comment: called to nazario alves [facility] URINE AND STOOL UA Urobilinogen <=1.0 mg/dL 0.1 - 1.0 05/11/2014 [facility] URINE AND STOOL UA Sq Epi None Seen 05/11/2014 [facility] URINE AND STOOL UA Blood Negative (05/11/14 12:13 PM) Negative 05/11/2014 [facility] URINE AND STOOL UA Nitrite Negative (05/11/14 12:13 PM) Negative 05/11/2014 [facility] URINE AND STOOL UA Ketones Negative mg/dL Negative mg/dL 05/11/2014 [facility] URINE AND STOOL UA Bili Negative *NA* (05/11/14 12:13 PM) Negative 05/11/2014 [facility] URINE AND STOOL UA Protein Negative mg/dL Negative mg/dL 05/11/2014 [facility] URINE AND STOOL UA pH 5.0 5.0 - 8.0 05/11/2014 [facility] URINE AND STOOL UA Spec Grav 1.020 <=1.030 05/11/2014 [facility] URINE AND STOOL UA Glucose Negative mg/dL Negative mg/dL 05/11/2014 [facility] URINE AND STOOL UA Turbidity Clear (05/11/14 12:13 PM) Clear 05/11/2014 [facility] URINE AND STOOL UA Color Yellow *NA* (05/11/14 12:13 PM) Yellow 05/11/2014 [facility] CHEMISTRY AGAP 10.0 10.0 - 20.0 01/08/2012 Normal [facility] CHEMISTRY eGFR 68 01/08/2012 NA <sup>1</sup>Result [...] should be multiplied by the estimated BMI. [facility] CHEMISTRY BUN 22 7 - 22 01/08/2012 Normal [facility] CHEMISTRY Creatinine Lvl 1.1 0.5 - 1.4 01/08/2012 Normal [facility] CHEMISTRY Glucose Lvl 86 70 - 99 01/08/2012 Normal <sup>2</sup>Interpretive Data: Adult reference range values reflect the clinical guidelines
of the [place] [employer]. [facility] CHEMISTRY Calcium Lvl 8.6 8.5 - 10.5 01/08/2012 Normal [facility] CHEMISTRY CO2 33 24 - 32 01/08/2012 [facility] CHEMISTRY Potassium Lvl 4.0 3.5 - 5.1 01/08/2012 Normal [facility] CHEMISTRY Chloride Lvl 104 95 - 109 01/08/2012 Normal [facility] CHEMISTRY Sodium Lvl 143 135 - 145 01/08/2012 Normal [facility] HEMATOLOGY Lymphocytes 4.3 20.0 - 40.0 01/08/2012 LOW [facility] HEMATOLOGY Segs 79.1 45.0 - 75.0 01/08/2012 [facility] HEMATOLOGY Segs-Bands # 10.9 1.5 - 8.1 01/08/2012 [facility] HEMATOLOGY Eosinophils 5.5 0.0 - 4.0 01/08/2012 [facility] HEMATOLOGY Monocytes 11.0 2.0 - 12.0 01/08/2012 Normal [facility] HEMATOLOGY Basophils 0.1 0.0 - 1.0 01/08/2012 Normal [facility] HEMATOLOGY Basophils # 0.0 0.0 - 0.2 01/08/2012 Normal [facility] HEMATOLOGY Monocytes # 1.5 0.0 - 0.8 01/08/2012 [facility] HEMATOLOGY Lymphocytes # 0.6 1.0 - 5.5 01/08/2012 [facility] HEMATOLOGY Eosinophils # 0.8 0.0 - 0.5 01/08/2012 [facility] HEMATOLOGY PTT 33.2 22.9 - 35.8 01/08/2012 Normal <sup>4</sup>Interpretive Data: Heparin Therapeutic Range: 57 - 92 [facility] INR 0.93 0.85 - 1.17 01/08/2012 Normal <sup>3</sup>Interpretive Data: RECOMMENDED RANGES FOR PROTIME INR:
2.0-3.0 for most medical and surgical thromboembolic states.
2.5-3.5 for artificial heart valves and recurrent embolism.

INR SHOULD BE USED ONLY FOR PATIENTS ON STABLE ANTICOAGULANT THERAPY. [facility] PT 12.7 12.0 - 14.7 01/08/2012 Normal [facility] RBC 3.98 4.70 - 6.10 01/08/2012 LOW [facility] HEMATOLOGY WBC 13.8 3.7 - 10.4 01/08/2012 [facility] HEMATOLOGY MCH 35.2 27.0 - 31.0 01/08/2012 [facility] HEMATOLOGY MCV 104.6 80.0 - 94.0 01/08/2012 [facility] RDW 13.8 11.5 - 14.5 01/08/2012 Normal [facility] MCHC 33.6 32.0 - 36.0 01/08/2012 [facility] [facility] [place] [place] H[facility] 14.0 14.0 - 18.0 01/08/2012 Normal [facility] HEMATOLOGY Hct 41.6 42.0 - 54.0 01/08/2012 LOW [facility] HEMATOLOGY Platelet 261 133 - 450 01/08/2012 Normal [facility] HEMATOLOGY MPV 9.4 7.4 - 10.4 01/08/2012 Normal [facility] Pathology Reports No Data Provided for [...] nonspecific inflammatory arthritis such as rheumatoid : [id number] 06/22/2018 [facility] Chest 2 views DX Patient Name: NATASHA CORDERO : 1940; Age: 77 years y/o Male MR: [id number] * CHEST, 2 views HISTORY: - R07.9 [...] suggestive of chronic obstructive pulmonary disease. : [id number] 06/22/2018 [facility] Abdomen AP DX KUB: The low [...] is no significant change compared to 06/26/2015. [id number] 07/11/2016 [facility] Sinus wo contrast CT EXAM: SINUS CT WITHOUT CONTRAST DATE: 09/01/2015 9:40 AM CDT CLINICAL INDICATION: Nasal polyposis. TECHNIQUE: Thin section axial images are obtained from skull base through vertex ([place]) without IV contrast. Axial, sagittal, and coronal [...] mucosal thickening with patent postoperative drainage pathways. [place] drainage pathways are occluded. Nasal airway: Slight [...] lumbar spine. Bowel gas pattern normal. SL: [id number] 06/26/2015 [facility] Elbow 3 views DX Examination: Right [...] with large joint effusion. SL: 16 01/24/2015 [facility] Chest 2 views DX Examination: Chest x-ray, 2 views History: cough Comparison: 04/23/2013 Findings: Cardiac silhouette is normal in size. Emphysematous changes of the lungs are seen. No pleural effusion or pneumothorax is seen. No focal consolidation is noted. The osseous structures are without focal abnormality. IMPRESSION: COPD without acute disease SL: 08/26/2014 [facility] Abdomen AP DX HISTORY: Urinary tract calculi. Abdomen one view. COMPARISON: 05/18/2014. Left ureteral stent no longer present. Left internal iliac calcific atherosclerotic plaque, as before. Few pelvic phleboliths. No urinary tract calculus is evident, otherwise. SL:13 06/20/2014 [facility] Renal pyelogram retrograde DX Examination: Retrograde pyelogram, 6 views History: Lt stone/fluoro time=[id number]/Dose=[id number]/Cysto Room Comparison: None. Findings: Multiple intraoperative fluoroscopic views from a retrograde pyelogram are submitted for interpretation. The left ureter was cannulated. Contrast in the distal segment of the left ureter is seen. Left-sided ureteral stent is subsequently placed. SL: 16 05/18/2014 [facility] Abdomen AP view KUB: The renal [...] seen without acute osseous abnormalities. SL:13 05/18/2014 [facility] Chest 2 views Examination: Chest x-ray, 2 views History: pneumonia Comparison: 03/25/2012 Findings: Emphysematous changes throughout the lungs are again seen. There is no consolidation or congestion. No pleural effusion or pneumothorax is seen. The cardiac silhouette is normal in size. The osseous structures are stable. IMPRESSION: Stable exam of the chest without acute disease. SL: 13 04/23/2013 [facility] Renal Stone CT NONCONTRAST CT UROGRAM: [...] complex cysts. 4. Prostate enlargement. SL:13 02/18/2013 [facility] Consultation Notes No Data Provided for This Section Discharge Summaries No Data Provided for This Section History and Physicals No Data Provided for This Section Vital Signs Vital Sign Value Date Comments Source Weight 68.636 08/10/2018 [facility] Height 165.1 cm 08/10/2018 [facility] BMI Calculated 25.18 08/10/2018 [facility] Diastolic (mm Hg) 72 05/18/2014 [facility] Systolic (mm Hg) 138 05/18/2014 [facility] Respitory Rate 14 05/18/2014 [facility] Systolic (mm Hg) 128 05/18/2014 [facility] Diastolic (mm Hg) 72 05/18/2014 [facility] Respitory Rate 20 05/18/2014 [facility] Respitory Rate 16 05/18/2014 [facility] Systolic (mm Hg) 117 05/18/2014 [facility] Diastolic (mm Hg) 62 05/18/2014 [facility] Height 165.1 cm 05/11/2014 [facility] Weight 68.182 05/11/2014 [facility] BMI Calculated 25.01 05/11/2014 [facility] Heart Rate 72 05/11/2014 [facility] Temperature Oral (F) 97.4 F 05/11/2014 [facility] Diastolic (mm Hg) 78 01/10/2012 [facility] Systolic (mm Hg) 141 01/10/2012 [facility] Systolic (mm Hg) 125 01/10/2012 [facility] Diastolic (mm Hg) 68 01/10/2012 [facility] Systolic (mm Hg) 118 01/10/2012 [facility] Diastolic (mm Hg) 62 01/10/2012 [facility] Respitory Rate 21 01/10/2012 [facility] Respitory Rate 15 01/10/2012 [facility] Respitory Rate 16 01/10/2012 [facility] Heart Rate 76 01/10/2012 [facility] Heart Rate 80 01/08/2012 [facility] Temperature Oral (F) 98.1 F 01/08/2012 [facility] Height 167.64 cm 01/08/2012 [facility] Weight 68.182 01/08/2012 [facility] Encounters Location Location Details Encounter Type Encounter Number Reason For Visit Attending Provider ADM Date DC Date Status Source [facility] DS [id number] [facility] 01/10/2012 01/10/2012 Discharged [facility] Outpatient [id number] 592.0 ALBERTO SWARTZ 02/05/2012 02/05/2012 Active [facility] Outpatient [id number] +PPD SUSIE MONTILLA 03/25/2012 Active [facility] Outpatient [id number] 592.0,592.1/KSTONE PROTOCOL NO IV AND NO ORAL ALBERTO SWARTZ 02/18/2013 Active [facility] Outpatient [id number] PNEUMONIA SUSIE MONTILLA 04/23/2013 Active [facility] Outpatient [id number] Alberto Swartz 03/18/2014 03/19/2014 [facility] Outpatient [id number] Alberto Swartz 04/28/2014 04/29/2014 [facility] OBS Day Surgery [id number] Alberto Swartz 05/18/2014 05/18/2014 [facility] Outpatient [id number] Alberto Swartz 06/20/2014 06/21/2014 [facility] Outpatient [id number] Susie Montilla 08/26/2014 08/27/2014 [facility] Outpatient [id number] Elisa Aidee 01/24/2015 01/25/2015 [facility] Outpatient [id number] Alberto Swartz 06/26/2015 06/27/2015 [facility] [place] [facility] [id number] Niya Zelaya 09/01/2015 09/02/2015 [facility] Outpatient [id number] Alberto Swartz 07/11/2016 07/12/2016 [facility] Outpatient [id number] Elisaish Hoskins 06/22/2018 06/23/2018 [facility] Registered Surgical Day Care [id number] JEREMI ORTEGA MD 07/22/2018 [facility] Departed Emergency Room [id number] MIRA HUI MD 07/23/2018 07/23/2018 [facility] Outpatient [id number] Alberto Swartz 07/27/2018 Active [facility] Outpatient [id number] Alberto Swartz 07/27/2018 07/28/2018 [facility] Outpatient [id number] [place] 08/03/2018 [facility] Outpatient [id number] 08/03/2018 08/04/2018 [facility] Outpatient [id number] Alberto Thi 08/10/2018 [facility] Outpatient [id number] [facility] Swartz 08/10/2018 08/11/2018 [facility] Outpatient [id number] [place] 12/08/2018 [facility] Outpatient [id number] [facility] Swartz 12/10/2018 [facility] Procedures Procedure Code Date Perfomer Comments Source Measurement of post-voiding residual urine and/or bladder capacity by ultrasound, non-imaging [id number] 08/03/2018 [facility] uroflowmetry (eg, calibrated electronic equipment) [id number] 08/03/2018 [facility] Colonoscopy with polypectomy [id number] 07/22/2018 JORDAN [facility] ESWL of kidney [id number] [facility] uroflowmetry [id number] [facility] ESWL of kidney [id number] [facility] ESWL of kidney [id number] [facility] Assessment and Plan No Data Provided for This Section Plan of Care Plan of Care Date Source Discharge Date 07/23/18 3:27am Disposition HOME, SELF-CARE Condition at Discharge Stable Instructions/Education Provided [place] Urinary Retention Prescriptions See Medication Section Additional Instructions/Education REST; FOLLOW STROUD CATHETER INSTRUCTIONS; FOLLOW UP WITH YOUR UROLOGIST; TAKE MEDICATIONS PRESCRIBED; 07/23/2018 [facility] Social History Social History Date Source Smoking Status Start Date Stop Date Never Smoker 07/23/2018 [facility] Social History TypeResponse Substance Abuse Use: None. Alcohol Current, Type Beer. Frequency: 1-2 times per week. Smoking Status Never smoker; Exposure to Tobacco Smoke None; Cigarette Smoking Last 365 Days No; Reg Smoking Cessation Counseling No entered on: 05/11/14 05/11/2014 [facility] Social [facility] TypeResponse Substance Abuse Use: None. Alcohol Current, [...] Reg Smoking Cessation Counseling No 05/11/2014 [facility] Family History No Data Provided for This Section Advance Directives Order Name Results Value Date Source Advance Directives Advance Directives Directive Response Recorded Date/Time Does the patient have an advance directive? No 12/27/11 3:13am Do you have a Directive to Physician? No 07/23/18 3:13am Do you have a Medical Power of Dietary Service Aide? No 07/23/18 3:13am Do you have an [...] rights and responsibilities? Yes 07/23/18 3:13am 07/23/2018 [facility] Functional Status No Data Provided for This Section
--- NOTE | 2018-10-13 12:20 | NUR ---
PATIENT EVALUATED BY DR. BARNETT IN TRIAGE
[2018-10-13] MEDS ORDERED: SODIUM CHLORIDE 0.9% 1000ML 1,000 ML IV STA (12:49)
[2018-10-13 12:58] LABS: BILIRUBIN,URINE SMALL (NEGATIVE); CLARITY,URINE CLEAR (CLEAR); COLOR,URINE YELLOW (YELLOW); LEUKOCYTE ESTERASE ,URINE NEGATIVE (NEGATIVE); NITRITE,URINE NEGATIVE (NEGATIVE); PROTEIN,URINE DIPSTICK TRACE (NEGATIVE); URINE UROBILINOGEN 0.2 mg/dL (0.2 - 1)
[2018-10-13 13:01] LABS: KETONES,URINE 2+ (NEGATIVE)
[2018-10-13 13:27] LABS: BACTERIA,URINE RARE /HPF; EPITHELIAL CELLS,URINE FEW /LPF; MUCUS,URINE MODERATE (RARE); RBC,URINE 0-5 /HPF (0-5); WBC,URINE (MAN) 0-5 /HPF (0-5)
[2018-10-13 13:44] LABS: BASOPHILS # (AUTO) 0.1 (0.0-0.1); BASOPHILS % 0.3 % (0.0-1.0); EOSINOPHILS # (AUTO) 0.1 (0.0-0.4); EOSINOPHILS % 0.3 % (0.0-6.0); HEMATOCRIT 40.8 % (38.2-49.6); HEMOGLOBIN 13.3 g/dL (14.0-18.0); LYMPHOCYTES # (AUTO) 0.5 (1.0-3.2); LYMPHOCYTES % 2.1 % (18.0-39.1); MEAN CORPUSCULAR HEMOGLOBIN 31.7 pg (28-32); MEAN CORPUSCULAR HGB CONC 32.6 g/dL (31-35); MEAN CORPUSCULAR VOLUME 97.1 fL (81-99); MONOCYTES # (AUTO) 1.2 (0.2-0.8); MONOCYTES % 5.1 % (4.4-11.3); NEUTROPHILS # (AUTO) 21.7 (2.1-6.9); NEUTROPHILS % 90.7 % (38.7-80.0); PLATELET COUNT 295 x10e3/uL (140-360); RED CELL DISTRIBUTION WIDTH 15.5 % (11.7-14.4)
[2018-10-13 14:07] LABS: ALANINE AMINOTRANSFERASE 26 IU/L (0-55); ALBUMIN 3.1 g/dL (3.5-5.0); ALBUMIN/GLOBULIN RATIO 0.8 (0.8-2.0); ALKALINE PHOSPHATASE 45 IU/L (40-150); ANION GAP 12.7 mmol/L (8-16); BLOOD UREA NITROGEN 21 mg/dL (7-26); BUN/CREATININE RATIO 27 (6-25); CALCIUM 8.8 mg/dL (8.4-10.2); CARBON DIOXIDE 23 mmol/L (22-29); CHLORIDE 103 mmol/L (98-107); CREATINE KINASE 55 IU/L (30-200); CREATININE, SERUM 0.77 mg/dL (0.72-1.25); EST GLOMERULAR FILTRATION RATE > 60 ML/MIN (60-); GLUCOSE 106 mg/dL (74-118); POTASSIUM 3.7 mmol/L (3.5-5.1); SODIUM 135 mmol/L (136-145)
--- NOTE | 2018-10-13 14:42 | Diagnostic Imaging Report ---
EXAMINATION: CHEST SINGLE (NOT PORTABLE) INDICATION: Areas of breath COMPARISON: CT abdomen and pelvis of 10/07/2018 and chest radiograph of 10/07/2018 FINDINGS: TUBES and LINES: None. LUNGS: The lung volumes are normal. No focal consolidation or pulmonary edema. PLEURA: No pleural effusion or pneumothorax. HEART AND MEDIASTINUM: The cardiomediastinal silhouette is normal in size and contour. Atherosclerotic calcifications of the thoracic aorta. BONES AND SOFT TISSUES: No acute fracture or dislocation. UPPER ABDOMEN: No free air under the diaphragm. IMPRESSION: No focal pneumonia or pulmonary edema. Signed by: Bianka Graham MD on 10/13/2018 2:39 PM
[2018-10-13] MEDS ORDERED: SODIUM CHLORIDE 0.9% 1000ML 1,000 ML IV SCH (16:50)
[2018-10-13] MEDS ORDERED: ONDANSETRON HCL INJ 2MG/ML 2ML 2 MG/ML VIAL IV PRN (17:00)
--- OUTSIDE RECORDS SUMMARY | 2018-10-13 17:14 | XMS REPORT | Continuity of Care Document ---
Author Author [employer] Address Unknown Phone Unavailable Care Team Providers Care Home Organizer Name Role Phone [employer] Information [employer] Unavailable Unavailable Problems Problem Status Onset Date Classification Date Reported Comments Source XRAY Active 06/22/2018 [facility] KIDNEY Active 07/11/2016 [facility] 592.0 Active 04/28/2014 [facility] UNK Active 04/28/2014 [facility] 592.1/592.0 Active 04/28/2014 [facility] RENAL STONE Active 03/11/2014 [facility] 592.0,592.1/KSTONE PROTOCOL NO IV AND Active 02/12/2013 [facility] STONE 592.0 592.1 / CPT 40990 [id number] Active 01/06/2012 [facility] Newborn1 Resolved 03/07/2010 Problem 08/12/2018 This problem was automatically added by [employer] for patients less than 28 days old. [facility] [place] Gout Active Problem 08/12/2018 [facility] [place] Hypertension Active Problem 08/12/2018 [facility] [place] Renal stones Resolved Problem 08/12/2018 [facility] [place] Ureteral stone Active Problem 08/12/2018 [facility] [place] CALCULUS OF KIDNEY Active [facility] CALCULUS OF URETER Active [facility] +PPD Active [facility] NONSP REVA SKN TEST WO TB Active [facility] PNEUMONIA Active [facility] PNEUMONIA, ORGANISM NOS Active [facility] M25.521 Active [facility] PAIN IN RIGHT ELBOW Active [facility] COUGH Active [facility] COUGH Active [facility] KUB Active [facility] CALCULUS OF KIDNEY Active [facility] CHEST PAIN, UNSPECIFIED Active [facility] PAIN IN RIGHT HAND Active [facility] PAIN IN LEFT HAND Active [facility] Medications Medication Details Route Status Patient Instructions Ordering Provider Order Date Source Dutasteride 0.5 MG Oral Capsule [Avodart] 0.5 mg=1 cap, PO, Daily, # 90 cap, 1 Refill(s), Pharmacy: [facility] [id number] Active 08/10/2018 [facility] tamsulosin 0.4 mg oral capsule 0.4 mg=1 cap, PO, Daily, # 90 cap, 1 Refill(s), Pharmacy: [facility] [id number] Active 08/10/2018 [facility] tamsulosin 0.4 mg oral capsule 0.4 mg=1 cap, PO, Daily, 0 Refill(s) Active 07/27/2018 [facility] Alendronic acid 10 MG Oral Tablet 10 mg=1 tab, PO, Daily, 0 Refill(s) Active 07/27/2018 [facility] methotrexate 2.5 mg oral tablet PO, 0 Refill(s) Active 07/27/2018 [facility] Nitrofurantoin 100 mg, PO, BID, # 14 cap, 0 Refill(s) Active 07/27/2018 [facility] Vitamin D3 0 Refill(s) Active 07/27/2018 [facility] Silodosin (Rapaflo) 4 Mg Capsule, 4 Mg Oral Daily Active 07/14/2018 [facility] Dutasteride/Tamsulosin Hcl (Licha 0.5-0.4 Mg Capsule) 1 Each Cpmp.24hr, 1 Tab Oral Daily Active 04/18/2015 [facility] Folic Acid 1 Mg Tablet, 1 Tab Oral Twice A Day Active 04/18/2015 [facility] Tocilizumab (Actemra) 200 Mg/10 Ml Vial, 1 1 Mothly Active 04/18/2015 [facility] Pyridium 100 mg oral tablet 100 mg=1 tab, PO, TID, # 21 tab, 0 Refill(s) Active 05/18/2014 [facility] Ciprofloxacin 500 MG Oral Tablet [Cipro] 500 mg=1 tab, PO, Q12H, # 14 tab, 0 Refill(s) Active 05/18/2014 [facility] Hydromorphone 0.3 mg, Route: IVP, Q3H, Dosing Weight 68.182, kg, PRN Pain Score 4-6, Start date: 05/18/14 10:06:00, Duration: 30 day, Stop date: 06/17/14 10:05:00 Inactive 05/18/2014 [facility] Ciprofloxacin 2 MG/ML Injectable Solution [Cipro] 400 mg, Route: IVPB, ONCE, Dosing Weight 68.182, kg, Start date: 05/18/14 9:25:00, Stop date: 05/18/14 9:25:00 Inactive 05/18/2014 [facility] Calcium Chloride 0.0014 MEQ/ML / Potassium Chloride 0.004 MEQ/ML / Sodium Chloride 0.103 MEQ/ML / Sodium Lactate 0.028 MEQ/ML Injectable Solution 1,000 mL, Rate: 25 ml/hr, Infuse over: 40 hr, Route: IV, Dosing Weight 68.182 kg, Total Volume: 1,000, Start date: 05/18/14 8:20:00, Duration: 30 day, Stop date: 06/17/14 8:19:00 Inactive 05/18/2014 [facility] ondansetron 4 mg, 2 mL, Route: IVP, Drug form: INJ, ONCE, Dosing Weight 68.182, kg, PRN Nausea & Vomiting, Start date: 01/10/12 12:51:00 IVP No Longer Active [facility] 01/10/2012 [facility] acetaminophen-hydrocodone 325 mg-5 mg oral tablet 2 tab, Route: PO, Drug Form: TAB, Dosing Weight 68.182, kg, Q4H, PRN Pain Score 4-6, Start date: 01/10/12 12:51:00, Duration: 30 day, Stop date: 02/09/12 12:50:00 PO No Longer Active [facility] 01/10/2012 [facility] niCARdipine 0.25 mg, 0.1 mL, Route: IVP, Drug form: INJ, Q5Min, Dosing Weight 68.182, kg, PRN Elevated BP, Start date: 01/10/12 12:51:00, Duration: 4 doses or times, Stop date: Limited # of times IVP No Longer Active [facility] 01/10/2012 [facility] fentanyl 25 microgram, 0.5 mL, Route: IVP, Drug form: INJ, Q5Min, Dosing Weight 68.182, kg, PRN Pain Score 4-6, Start date: 01/10/12 12:51:00, Duration: 4 doses or times, Stop date: Limited # of times IVP No Longer Active [facility] 01/10/2012 [facility] metoprolol 1 mg, 1 mL, Route: IVP, Drug form: INJ, Q5Min, Dosing Weight 68.182, kg, PRN Elevated BP, Start date: 01/10/12 12:51:00, Duration: 5 doses or times, Stop date: Limited # of times IVP No Longer Active [facility] 01/10/2012 [facility] labetalol 5 mg, 1 mL, Route: IVP, Drug form: INJ, Q5Min, Dosing Weight 68.182, kg, PRN Elevated BP, Start date: 01/10/12 12:51:00, Duration: 5 doses or times, Stop date: Limited # of times IVP No Longer Active [facility] 01/10/2012 [facility] hydrALAZINE 5 mg, 0.25 mL, Route: IVP, Drug form: INJ, Q5Min, Dosing Weight 68.182, kg, PRN Elevated BP, Start date: 01/10/12 12:51:00, Duration: 4 doses or times, Stop date: Limited # of times IVP No Longer Active [facility] 01/10/2012 [facility] Lactated Ringers Injection IV 1,000 mL 1,000 mL, Rate: 50 ml/hr, Infuse over: 20 hr, Route: IV, kg, Total Volume: 1,000, Start date: 01/10/12 12:51:00, Duration: 30 day, Stop date: 02/09/12 12:50:00 IV No Longer Active [facility] 01/10/2012 [facility] naloxone 0.04 mg, 0.04 mL, Route: IVP, Drug form: INJ, Q2MIN, Dosing Weight 68.182, kg, PRN Narcotic Reversal, Start date: 01/10/12 12:51:00, Duration: 8 doses or times, Stop date: Limited # of times IVP No Longer Active [facility] 01/10/2012 [facility] flumazenil 0.2 mg, 2 mL, Route: IVP, Drug form: INJ, PRN, Dosing Weight 68.182, kg, PRN Benzodiazepine Reversal, Initial dose, Start date: 01/10/12 12:51:00, Duration: 30 day, Stop date: 02/09/12 11:50:00 IVP No Longer Active [facility] 01/10/2012 [facility] meperidine 12.5 mg, 0.25 mL, Route: IVP, Drug form: INJ, Q30Min, Dosing Weight 68.182, kg, PRN Other -See Comment, For shivering, Start date: 01/10/12 12:51:00, Duration: 2 doses or times, Stop date: Limited # of times IVP No Longer Active [facility] 01/10/2012 [facility] morphine Sulfate 2 mg, 1 mL, Route: IVP, Drug form: INJ, Q5Min, Dosing Weight 68.182, kg, PRN Pain Score 4-6, Start date: 01/10/12 12:51:00, Duration: 8 doses or times, Stop date: Limited # of times IVP No Longer Active [facility] 01/10/2012 [facility] hydromorphone 0.5 mg, 0.5 mL, Route: IVP, Drug form: SOLN, Q5Min, Dosing Weight 68.182, kg, PRN Pain Score 4-6, Start date: 01/10/12 12:51:00, Duration: 5 doses or times, Stop date: Limited # of times IVP No Longer Active [facility] 01/10/2012 [facility] Ditropan 5 mg, Route: PO, Drug form: TAB, ONCE, Dosing Weight 68.182, kg, Start date: 01/10/12 11:41:00, Stop date: 01/10/12 11:41:00 PO No Longer Active [facility] 01/10/2012 [facility] Pyridium 200 mg, Route: PO, Drug form: TAB, ONCE, Dosing Weight 68.182, kg, Start date: 01/10/12 11:41:00, Stop date: 01/10/12 11:41:00 PO No Longer Active [facility] 01/10/2012 [facility] gentamicin 120 mg, Route: IVPB, ONCE, Dosing Weight 68.182, kg, Start date: 01/10/12 8:02:00, Stop date: 01/10/12 8:02:00 IVPB No Longer Active [facility] 01/10/2012 [facility] Ancef 1 gm, Route: IVPB, ONCE, Dosing Weight 68.182, kg, Start date: 01/10/12 8:02:00, Duration: 1 doses or times, Stop date: 01/10/12 8:02:00 IVPB No Longer Active [facility] 01/10/2012 [facility] Lactated Ringers Injection IV 1000 mL 1,000 mL, Rate: 25 ml/hr, Infuse over: 40 hr, Route: IV, Dosing Weight 68.182 kg, Total Volume: 1,000, Start date: 01/10/12 7:46:00, Duration: 30 day, Stop date: 02/09/12 7:45:00 IV No Longer Active [facility] 01/10/2012 [facility] folic acid 1 mg oral tablet 1 mg, 1 tab, PO, Daily, 30 tab, Substitution Allowed, TAB PO Active 01/08/2012 [facility] allopurinol 100 mg oral tablet 100 mg, 1 tab, PO, BID, 180 tab, Substitution Allowed, TAB PO Active 01/08/2012 [facility] amLODipine 10 mg oral tablet 10 mg, 1 tab, PO, Daily, 30 tab, Substitution Allowed, TAB PO Active 01/08/2012 [facility] prednisoLONE 5 mg oral tablet 5 mg, 1 tab, PO, Daily, 7 tab, Substitution Allowed, TAB PO Active 01/08/2012 [facility] Advair Diskus 250 mcg-50 mcg inhalation powder 1 puff, INHALATION, BID, 28 ea, Substitution Allowed, Maintenance, PWDR INHALATION Active 01/08/2012 [facility] Allopurinol 100 Mg Tablet Daily Active [facility] Amlodipine Besylate 10 Mg Tablet Daily Active [facility] Cholecalciferol (Vitamin D3) (Vitamin D) 400 Unit Capsule Daily Active [facility] Folic Acid 1 Mg Tablet Daily Active [facility] Methotrexate Sodium (Methotrexate) 2.5 Mg Tablet Daily Active [facility] Prednisolone (Millipred) 5 Mg Tablet Daily Active [facility] Allergies, Adverse Reactions, Alerts Substance Category Reaction Severity Reaction type Status Date Reported Comments Source NSAIDS (Non-Steroidal Anti-Inflamma Severe Allergy to Substance Active 12/27/2011 [facility] Aspirin Unknown Allergy to Substance Active 07/23/2018 [facility] NSAIDs Assertion Drug allergy Active [facility] Immunizations No Data Provided for This Section Results Order Name Results Value Reference Range Date Interpretation Comments Source Urine color determination YELLOW YELLOW 07/23/2018 [facility] Urine clarity CLEAR CLEAR 07/23/2018 [facility] Specific gravity of Urine by Test strip 1.005 1.010 - 1.025 07/23/2018 [facility] Urine pH measurement by automated test strip 5 5 - 7 07/23/2018 [facility] Urine leukocyte esterase detection by dipstick NEGATIVE NEGATIVE 07/23/2018 [facility] Urine nitrite detection NEGATIVE NEGATIVE 07/23/2018 [facility] Urine protein measurement by test strip (mass/volume) NEGATIVE NEGATIVE 07/23/2018 [facility] Urine glucose detection NEGATIVE NEGATIVE 07/23/2018 [facility] Urine ketones detection by automated test strip NEGATIVE NEGATIVE 07/23/2018 [facility] Urine urobilinogen measurement by test strip (mass/volume) 0.2 0.2 - 1 07/23/2018 [facility] Urine total bilirubin measurement (mass/volume) NEGATIVE NEGATIVE 07/23/2018 [facility] Urine erythrocytes detection 3+ NEGATIVE 07/23/2018 [facility] Automated urine sediment leukocyte count by microscopy (number/high power field) 0-5 0 - 5 07/23/2018 [facility] Erythrocytes detection in urine sediment by light microscopy 11-20 0 - 5 07/23/2018 [facility] Bacteria detection in urine sediment by light microscopy FEW NONE 07/23/2018 [facility] Epithelial cells detection in urine sediment by light microscopy FEW NONE 07/23/2018 [facility] Blood leukocytes automated count (number/volume) 16.61 4.8 - 10.8 07/23/2018 [facility] Blood erythrocytes automated count (number/volume) 4.59 4.3 - 5.7 07/23/2018 [facility] Blood hemoglobin measurement (moles/volume) 14.7 14.0 - 18.0 07/23/2018 [facility] Automated blood hematocrit (volume fraction) 45.0 38.2 - 49.6 07/23/2018 [facility] Automated erythrocyte mean corpuscular volume 98.0 81 - 99 07/23/2018 [facility] Automated erythrocyte mean corpuscular hemoglobin (mass per erythrocyte) 32.0 28 - 32 07/23/2018 [facility] Automated erythrocyte mean corpuscular hemoglobin concentration measurement (mass/volume) 32.7 31 - 35 07/23/2018 [facility] RDW BldCo-Rto 14.6 11.7 - 14.4 07/23/2018 [facility] Automated blood platelet count (count/volume) 310 140 - 360 07/23/2018 [facility] Automated blood segmented neutrophil count as percentage of total leukocytes 88.5 38.7 - 80.0 07/23/2018 [facility] Automated blood lymphocyte count as percentage ot total leukocytes 4.3 18.0 - 39.1 07/23/2018 [facility] Automated blood monocyte count as percentage of total leukocytes 5.5 4.4 - 11.3 07/23/2018 [facility] Automated blood eosinophil count as percentage of total leukocytes 0.4 0.0 - 6.0 07/23/2018 [facility] Automated blood basophil count as percentage of total leukocytes 0.2 0.0 - 1.0 07/23/2018 [facility] IM GRANULOCYTES % 1.1 0.0 - 1.0 07/23/2018 [facility] Automated blood neutrophil count 14.7 2.1 - 6.9 07/23/2018 [facility] Blood lymphocytes count (number/volume) 0.7 1.0 - 3.2 07/23/2018 [facility] Blood monocytes automated count (number/volume) 0.9 0.2 - 0.8 07/23/2018 [facility] Automated blood eosinophil count 0.1 0.0 - 0.4 07/23/2018 [facility] Automated blood basophil count (count/volume) 0.0 0.0 - 0.1 07/23/2018 [facility] Absolute Immature Granulocyte (auto 0.19 0 - 0.1 07/23/2018 [facility] Serum or plasma sodium measurement (moles/volume) 134 136 - 145 07/23/2018 [facility] Serum or plasma potassium measurement (moles/volume) 4.1 3.5 - 5.1 07/23/2018 [facility] Serum or plasma chloride measurement (moles/volume) 101 98 - 107 07/23/2018 [facility] Serum or plasma carbon dioxide, total measurement (moles/volume) 21 22 - 29 07/23/2018 [facility] Serum or plasma anion gap 16.1 8 - 16 07/23/2018 [facility] Serum or plasma urea nitrogen measurement (mass/volume) 22 7 - 26 07/23/2018 [facility] Serum or plasma creatinine measurement (mass/volume) 1.17 0.72 - 1.25 07/23/2018 [facility] Serum or plasma urea nitrogen/creatinine mass ratio 19 6 - 25 07/23/2018 [facility] Estimated glomerular filtration rate (GFR) determination > 60 60 07/23/2018 [facility] Glucose measurement 115 74 - 118 07/23/2018 [facility] Serum or plasma calcium measurement (mass/volume) 9.5 8.4 - 10.2 07/23/2018 [facility] Serum or plasma total bilirubin measurement (mass/volume) 0.9 0.2 - 1.2 07/23/2018 [facility] Aspartate Amino Transf (AST/SGOT) 25 5 - 34 07/23/2018 [facility] Serum or plasma alanine aminotransferase measurement (enzymatic activity/volume) 21 0 - 55 07/23/2018 [facility] Serum or plasma protein measurement (mass/volume) 8.0 6.5 - 8.1 07/23/2018 [facility] Serum or plasma albumin measurement (mass/volume) 3.7 3.5 - 5.0 07/23/2018 [facility] Plasma globulin measurement (mass/volume) 4.3 2.3 - 3.5 07/23/2018 [facility] Serum or plasma albumin/globulin mass ratio 0.9 0.8 - 2.0 07/23/2018 [facility] Serum or plasma alkaline phosphatase measurement (enzymatic activity/volume) 55 40 - 150 07/23/2018 [facility] CHEM PANEL BUN 24 7 - 22 05/11/2014 [facility] CHEM PANEL eGFR 67 05/11/2014 <sup>1</sup>Result [...] be multiplied by the estimated BMI. [facility] CHEM PANEL Chloride Lvl 107 95 - 109 05/11/2014 [facility] CHEM PANEL CO2 31 24 - 32 05/11/2014 [facility] CHEM PANEL Potassium Lvl 4.3 3.5 - 5.1 05/11/2014 [facility] CHEM PANEL Sodium Lvl 141 135 - 145 05/11/2014 [facility] CHEM PANEL Calcium Lvl 9.0 8.5 - 10.5 05/11/2014 [facility] CHEM PANEL Creatinine Lvl 1.1 0.5 - 1.4 05/11/2014 [facility] CHEM PANEL Glucose Lvl 107 70 - 99 05/11/2014 <sup>2</sup>Interpretive Data: Adult reference range values reflect the clinical guidelines
of the [place] [employer]. [facility] CHEM PANEL AGAP 7.3 10.0 - 20.0 05/11/2014 [facility] PT 13.1 12.0 - 14.7 05/11/2014 [facility] PTT 27.3 22.9 - 35.8 05/11/2014 <sup>5</sup>Interpretive Data: Heparin Therapeutic Range: 57 - 92 Seconds [facility] INR 0.99 0.85 - 1.17 05/11/2014 <sup>4</sup>Interpretive Data: RECOMMENDED RANGES FOR PROTIME INR:
2.0-3.0 for most medical and surgical thromboembolic states.
2.5-3.5 for artificial heart valves and recurrent embolism.

INR SHOULD BE USED ONLY FOR PATIENTS ON STABLE ANTICOAGULANT THERAPY. [facility] MCHC 33.0 32.0 - 36.0 05/11/2014 [facility] MPV 11.0 7.4 - 10.4 05/11/2014 [facility] Platelet 164 133 - 450 05/11/2014 [facility] RBC 4.33 4.70 - 6.10 05/11/2014 [facility] MCH 35.4 27.0 - 31.0 05/11/2014 [facility] RDW 13.5 11.5 - 14.5 05/11/2014 [facility] MCV 107.2 80.0 - 94.0 05/11/2014 [facility] Hct 46.4 42.0 - 54.0 05/11/2014 [facility] Hgb 15.3 14.0 - 18.0 05/11/2014 [facility] WBC 8.0 3.7 - 10.4 05/11/2014 [facility] Monocytes # 1.0 0.0 - 0.8 05/11/2014 [facility] Eosinophils # 0.8 0.0 - 0.5 05/11/2014 [facility] Lymphocytes # 0.9 1.0 - 5.5 05/11/2014 [facility] Macrocyte 2+ *ABN* (05/11/14 12:13 PM) None Seen 05/11/2014 [facility] Eosinophils 10.1 0.0 - 4.0 05/11/2014 [facility] Segs-Bands # 5.2 1.5 - 8.1 05/11/2014 [facility] Monocytes 12.5 2.0 - 12.0 05/11/2014 [facility] Basophils 0.6 0.0 - 1.0 05/11/2014 [facility] HEMATOLOGY Lymphocytes 11.9 20.0 - 40.0 05/11/2014 [facility] HEMATOLOGY Segs 64.9 45.0 - 75.0 05/11/2014 [facility] URINE AND STOOL UA Leuk Est Negative (05/11/14 12:13 PM) Negative 05/11/2014 [facility] URINE AND STOOL UA RBC 2 0 - 2 05/11/2014 [facility] URINE AND STOOL UA WBC 1 0 - 5 05/11/2014 [facility] URINE AND STOOL UA Mucus Few /LPF None Seen /LPF 05/11/2014 [facility] URINE AND STOOL UA Sperm None Seen /HPF None Seen /HPF 05/11/2014 <sup>3</sup>Result Comment: called to nazario alves [facility] URINE AND STOOL UA Urobilinogen <=1.0 mg/dL 0.1 - 1.0 05/11/2014 [facility] URINE AND STOOL UA Sq Epi None Seen 05/11/2014 [facility] URINE AND STOOL UA Blood Negative (05/11/14 12:13 PM) Negative 05/11/2014 [facility] URINE AND STOOL UA Nitrite Negative (05/11/14 12:13 PM) Negative 05/11/2014 [facility] URINE AND STOOL UA Ketones Negative mg/dL Negative mg/dL 05/11/2014 [facility] URINE AND STOOL UA Bili Negative *NA* (05/11/14 12:13 PM) Negative 05/11/2014 [facility] URINE AND STOOL UA Protein Negative mg/dL Negative mg/dL 05/11/2014 [facility] URINE AND STOOL UA pH 5.0 5.0 - 8.0 05/11/2014 [facility] URINE AND STOOL UA Spec Grav 1.020 <=1.030 05/11/2014 [facility] URINE AND STOOL UA Glucose Negative mg/dL Negative mg/dL 05/11/2014 [facility] URINE AND STOOL UA Turbidity Clear (05/11/14 12:13 PM) Clear 05/11/2014 [facility] URINE AND STOOL UA Color Yellow *NA* (05/11/14 12:13 PM) Yellow 05/11/2014 [facility] CHEMISTRY AGAP 10.0 10.0 - 20.0 01/08/2012 Normal [facility] CHEMISTRY eGFR 68 01/08/2012 NA <sup>1</sup>Result [...] be multiplied by the estimated BMI. [facility] CHEMISTRY BUN 22 7 - 22 01/08/2012 Normal [facility] CHEMISTRY Creatinine Lvl 1.1 0.5 - 1.4 01/08/2012 Normal [facility] CHEMISTRY Glucose Lvl 86 70 - 99 01/08/2012 Normal <sup>2</sup>Interpretive Data: Adult reference range values reflect the clinical guidelines
of the [place] [employer]. [facility] CHEMISTRY Calcium Lvl 8.6 8.5 - 10.5 01/08/2012 Normal [facility] CHEMISTRY CO2 33 24 - 32 01/08/2012 [facility] CHEMISTRY Potassium Lvl 4.0 3.5 - 5.1 01/08/2012 Normal [facility] CHEMISTRY Chloride Lvl 104 95 - 109 01/08/2012 Normal [facility] CHEMISTRY Sodium Lvl 143 135 - 145 01/08/2012 Normal [facility] HEMATOLOGY Lymphocytes 4.3 20.0 - 40.0 01/08/2012 LOW [facility] HEMATOLOGY Segs 79.1 45.0 - 75.0 01/08/2012 [facility] HEMATOLOGY Segs-Bands # 10.9 1.5 - 8.1 01/08/2012 [facility] HEMATOLOGY Eosinophils 5.5 0.0 - 4.0 01/08/2012 [facility] HEMATOLOGY Monocytes 11.0 2.0 - 12.0 01/08/2012 Normal [facility] HEMATOLOGY Basophils 0.1 0.0 - 1.0 01/08/2012 Normal [facility] HEMATOLOGY Basophils # 0.0 0.0 - 0.2 01/08/2012 Normal [facility] HEMATOLOGY Monocytes # 1.5 0.0 - 0.8 01/08/2012 [facility] HEMATOLOGY Lymphocytes # 0.6 1.0 - 5.5 01/08/2012 [facility] HEMATOLOGY Eosinophils # 0.8 0.0 - 0.5 01/08/2012 [facility] HEMATOLOGY PTT 33.2 22.9 - 35.8 01/08/2012 Normal <sup>4</sup>Interpretive Data: Heparin Therapeutic Range: 57 - 92 Seconds [facility] INR 0.93 0.85 - 1.17 01/08/2012 Normal <sup>3</sup>Interpretive Data: RECOMMENDED RANGES FOR PROTIME INR:
2.0-3.0 for most medical and surgical thromboembolic states.
2.5-3.5 for artificial heart valves and recurrent embolism.

INR SHOULD BE USED ONLY FOR PATIENTS ON STABLE ANTICOAGULANT THERAPY. [facility] PT 12.7 12.0 - 14.7 01/08/2012 Normal [facility] RBC 3.98 4.70 - 6.10 01/08/2012 LOW [facility] HEMATOLOGY WBC 13.8 3.7 - 10.4 01/08/2012 [facility] HEMATOLOGY MCH 35.2 27.0 - 31.0 01/08/2012 [facility] HEMATOLOGY MCV 104.6 80.0 - 94.0 01/08/2012 [facility] RDW 13.8 11.5 - 14.5 01/08/2012 Normal [facility] MCHC 33.6 32.0 - 36.0 01/08/2012 Normal [facility] Hgb 14.0 14.0 - 18.0 01/08/2012 Normal [facility] HEMATOLOGY Hct 41.6 42.0 - 54.0 01/08/2012 LOW [facility] HEMATOLOGY Platelet 261 133 - 450 01/08/2012 Normal [facility] HEMATOLOGY MPV 9.4 7.4 - 10.4 01/08/2012 Normal [facility] Pathology Reports No Data Provided for [...] nonspecific inflammatory arthritis such as rheumatoid : [id number] 06/22/2018 [facility] Chest 2 views DX Patient Name: NATASHA CORDERO : 1940; Age: 77 years y/o Male MR: [id number] * CHEST, 2 views HISTORY: - R07.9 [...] suggestive of chronic obstructive pulmonary disease. : [id number] 06/22/2018 [facility] Abdomen AP DX KUB: The low [...] is no significant change compared to 06/26/2015. [id number] 07/11/2016 [facility] Sinus wo contrast CT EXAM: SINUS CT WITHOUT CONTRAST DATE: 09/01/2015 9:40 AM CDT CLINICAL INDICATION: Nasal polyposis. TECHNIQUE: Thin section axial images are obtained from skull base through vertex ([place]) without IV contrast. Axial, sagittal, and coronal [...] mucosal thickening with patent postoperative drainage pathways. [place] drainage pathways are occluded. Nasal airway: Slight [...] lumbar spine. Bowel gas pattern normal. SL: [id number] 06/26/2015 [facility] Elbow 3 views DX Examination: Right [...] large joint effusion. SL: 16 01/24/2015 [facility] Chest 2 views DX Examination: Chest x-ray, 2 views History: cough Comparison: 04/23/2013 Findings: Cardiac silhouette is normal in size. Emphysematous changes of the lungs are seen. No pleural effusion or pneumothorax is seen. No focal consolidation is noted. The osseous structures are without focal abnormality. IMPRESSION: COPD without acute disease SL: 08/26/2014 [facility] Abdomen AP DX HISTORY: Urinary tract calculi. Abdomen one view. COMPARISON: 05/18/2014. Left ureteral stent no longer present. Left internal iliac calcific atherosclerotic plaque, as before. Few pelvic phleboliths. No urinary tract calculus is evident, otherwise. SL:13 06/20/2014 [facility] Renal pyelogram retrograde DX Examination: Retrograde pyelogram, 6 views History: Lt stone/fluoro time=[id number]/Dose=[id number]/Cysto Room Comparison: None. Findings: Multiple intraoperative fluoroscopic views from a retrograde pyelogram are submitted for interpretation. The left ureter was cannulated. Contrast in the distal segment of the left ureter is seen. Left-sided ureteral stent is subsequently placed. SL: 16 05/18/2014 [facility] Abdomen AP view KUB: The renal [...] without acute osseous abnormalities. SL:13 05/18/2014 [facility] Chest 2 views Examination: Chest x-ray, 2 views History: pneumonia Comparison: 03/25/2012 Findings: Emphysematous changes throughout the lungs are again seen. There is no consolidation or congestion. No pleural effusion or pneumothorax is seen. The cardiac silhouette is normal in size. The osseous structures are stable. IMPRESSION: Stable exam of the chest without acute disease. SL: 13 04/23/2013 [facility] Renal Stone CT NONCONTRAST CT UROGRAM: [...] cysts. 4. Prostate enlargement. SL:13 02/18/2013 [facility] Consultation Notes No Data Provided for This Section Discharge Summaries No Data Provided for This Section History and Physicals No Data Provided for This Section Vital Signs Vital Sign Value Date Comments Source Weight 68.636 08/10/2018 [facility] Height 165.1 cm 08/10/2018 [facility] BMI Calculated 25.18 08/10/2018 [facility] Diastolic (mm Hg) 72 05/18/2014 [facility] Systolic (mm Hg) 138 05/18/2014 [facility] Respitory Rate 14 05/18/2014 [facility] Systolic (mm Hg) 128 05/18/2014 [facility] Diastolic (mm Hg) 72 05/18/2014 [facility] Respitory Rate 20 05/18/2014 [facility] Respitory Rate 16 05/18/2014 [facility] Systolic (mm Hg) 117 05/18/2014 [facility] Diastolic (mm Hg) 62 05/18/2014 [facility] Height 165.1 cm 05/11/2014 [facility] Weight 68.182 05/11/2014 [facility] BMI Calculated 25.01 05/11/2014 [facility] Heart Rate 72 05/11/2014 [facility] Temperature Oral (F) 97.4 F 05/11/2014 [facility] Diastolic (mm Hg) 78 01/10/2012 [facility] Systolic (mm Hg) 141 01/10/2012 [facility] Systolic (mm Hg) 125 01/10/2012 [facility] Diastolic (mm Hg) 68 01/10/2012 [facility] Systolic (mm Hg) 118 01/10/2012 [facility] Diastolic (mm Hg) 62 01/10/2012 [facility] Respitory Rate 21 01/10/2012 [facility] Respitory Rate 15 01/10/2012 [facility] Respitory Rate 16 01/10/2012 [facility] Heart Rate 76 01/10/2012 [facility] Heart Rate 80 01/08/2012 [facility] Temperature Oral (F) 98.1 F 01/08/2012 [facility] Height 167.64 cm 01/08/2012 [facility] Weight 68.182 01/08/2012 [facility] Encounters Location Location Details Encounter Type Encounter Number Reason For Visit Attending Provider ADM Date DC Date Status Source [facility] DS [id number] [facility] 01/10/2012 01/10/2012 Discharged [facility] Outpatient [id number] 592.0 ALBERTO SWARTZ 02/05/2012 02/05/2012 Active [facility] Outpatient [id number] +PPD SUSIE MONTILLA 03/25/2012 Active [facility] Outpatient [id number] 592.0,592.1/KSTONE PROTOCOL NO IV AND NO ORAL ALBERTO SWARTZ 02/18/2013 Active [facility] Outpatient [id number] PNEUMONIA SUSIE MONTILLA 04/23/2013 Active [facility] Outpatient [id number] Alberto Swartz 03/18/2014 03/19/2014 [facility] Outpatient [id number] Alberto Swartz 04/28/2014 04/29/2014 [facility] OBS Day Surgery [id number] Alberto Swartz 05/18/2014 05/18/2014 [facility] Outpatient [id number] Alberto Swartz 06/20/2014 06/21/2014 [facility] Outpatient [id number] Susie Montilla 08/26/2014 08/27/2014 [facility] Outpatient [id number] Elisa Aidee 01/24/2015 01/25/2015 [facility] Outpatient [id number] Alberto Swartz 06/26/2015 06/27/2015 [facility] [place] [facility] Di[facility] [id number] Niya Zelaya 09/01/2015 09/02/2015 [facility] Outpatient [id number] Alberto Swartz 07/11/2016 07/12/2016 [facility] Outpatient [id number] Elisaish Hoskins 06/22/2018 06/23/2018 [facility] Registered Surgical Day Care [id number] JEREMI ORTEGA MD 07/22/2018 [facility] Departed Emergency Room [id number] MIRA HUI MD 07/23/2018 07/23/2018 [facility] Outpatient [id number] Alberto Swartz 07/27/2018 Active [facility] [place] [facility] Outpatient [id number] Alberto Swartz 07/27/2018 07/28/2018 [facility] Outpatient [id number] -[place] 08/03/2018 [facility] Outpatient [id number] 08/03/2018 08/04/2018 [facility] Outpatient [id number] Alberto Thi 08/10/2018 [facility] [id number] [facility] Swartz 08/10/2018 08/11/2018 [facility] Outpatient [id number] -[place] 12/08/2018 [facility] Outpatient [id number] [facility] Swartz 12/10/2018 [facility] Procedures Procedure Code Date Perfomer Comments Source Measurement of post-voiding residual urine and/or bladder capacity by ultrasound, non-imaging [id number] 08/03/2018 [facility] uroflowmetry (eg, calibrated electronic equipment) [id number] 08/03/2018 [facility] Colonoscopy with polypectomy [id number] 07/22/2018 JORDAN [facility] ESWL of kidney [id number] [facility] Complex uroflowmetry [id number] [facility] ESWL of kidney [id number] [facility] ESWL of kidney [id number] [facility] [place] Assessment and Plan No Data Provided for This Section Plan of Care Plan of Care Date Source Discharge Date 07/23/18 3:27am Disposition HOME, SELF-CARE Condition at Discharge Stable Instructions/Education Provided [facility] C[facility] Urinary Retention Prescriptions See Medication Section Additional Instructions/Education REST; FOLLOW STROUD CATHETER INSTRUCTIONS; FOLLOW UP WITH YOUR UROLOGIST; TAKE MEDICATIONS PRESCRIBED; 07/23/2018 [facility] Social History Social History Date Source Smoking Status Start Date Stop Date Never Smoker 07/23/2018 [facility] Social History TypeResponse Substance Abuse Use: None. Alcohol Current, Type Beer. Frequency: 1-2 times per week. Smoking Status Never smoker; Exposure to Tobacco Smoke None; Cigarette Smoking Last 365 Days No; Reg Smoking Cessation Counseling No entered on: 05/11/14 05/11/2014 [facility] Social [facility] Emergency Department TypeResponse Substance Abuse Use: None. [...] Reg Smoking Cessation Counseling No 05/11/2014 [facility] Family History No Data Provided for This Section Advance Directives Order Name Results Value Date Source Advance Directives Advance Directives Directive Response Recorded Date/Time Does the patient have an advance directive? No 12/27/11 3:13am Do you have a Directive to Physician? No 07/23/18 3:13am Do you have a Medical Power of Road Engineer? No 07/23/18 3:13am Do you have an [...] rights and responsibilities? Yes 07/23/18 3:13am 07/23/2018 [facility] Functional Status No Data Provided for This Section
[2018-10-13] MEDS ORDERED: AMLODIPINE BESYLATE 10 MG TAB PO PRN (17:45)
[2018-10-13 18:37] LABS: AMYLASE 77 U/L (25-125); LIPASE 26 U/L (8-78)
[2018-10-13] MEDS: DEXTROSE 5%/0.9% SOD CHL 1,000 ML IV SCH (19:43)
[2018-10-13] MEDS: PANTOPRAZOLE 40 MG 10ML VIAL IV SCH (19:43)
[2018-10-13 20:03] VITALS: BP 144/67
--- NOTE | 2018-10-13 20:03 | NUR ---
PT ARRIVED ON THE UNIT VIA WHEELCHAIR AT 2002. RESPIRATION IS EVEN AND UNLABORED, NO DISTRESS NOTED. ADMISSION AND HEAD TO TOE ASSESSMENT COMPLETE. PT ORIENTED TO THE ROOM, BED IN THE LOWEST POSITION, LOCKED, BED ALARM ON, AND CALL LIGHT WITHIN REACH. WILL CONTINUE TO MONITOR.
[2018-10-14] VITALS (9 sets, daily range): BP systolic 135–155; BP diastolic 60–79
--- NOTE | 2018-10-14 01:09 | History and Physical ---
Patient of the [facility], Dr. Rizo, Dr. Hoskins, and Dr. Ness. HISTORY OF PRESENT ILLNESS: The patient recently discharged from hospital with fever and chills, hematuria, was felt to have a rheumatoid flare by infectious disease workforce management consultant, though the etiology of his hematuria was unclear, possibly related to fever. He was discharged on Ceftin. I was called on Friday by daughter stating that he was nauseated and she thought the Ceftin was a problem. It was instructed to hold that until stomach improved and then to start at half dose. He was also seen by Dr. Hoskins, who recommended that the dose of steroids be decreased to 10 mg. He was continued on his antihypertensive medication. I was called this morning by daughter that he was vomiting after I had called her earlier to check his status after his discharge. He complained of chills and GI upset, otherwise he is stable. His routine medications included Advair, allopurinol, amlodipine, Flomax, folic acid, ProAir inhaler, and Tylenol 3. He has a history of rheumatoid arthritis, treated in the past with methotrexate, recently with Orencia as well as moderate dose of steroids. History of angioneurotic edema when given nonsteroidal agents. History of renal colic in the past, history of BPH, history of microscopic hematuria during his last hospitalization. SOCIAL HISTORY: He is . He smoked one pack a day for 25 years. 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 He quit smoking many years ago. FAMILY HISTORY: Positive for longevity. He has had thyroid surgery, rhinoplasty, sinus surgery. 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 PHYSICAL EXAMINATION: GENERAL: He is a well-developed [place] male in no acute distress. He felt better after IV fluids. Rheumatoid changes, less swelling is noted in the wrist during this hospitalization. HEAD: Normocephalic, atraumatic. NECK: Trachea midline. LUNGS: Clear. HEART: Regular rhythm. ABDOMEN: Nontender. EXTREMITIES: Nonedematous. The patient is admitted for IV fluids. ID opinion, [place] [address] with shift to the left. Liver function appears normal. We will check amylase. The patient's CT of the abdomen was essentially normal except for BPH and diverticular disease. Thank you for this kind referral. MD SERGEI Ramirez/JANE /[id number]
[2018-10-14] MEDS: HEPARIN SOD (PORCINE) 5,000 UNIT/ML VIAL SC SCH ×3 (02:24→21:00)
[2018-10-14] MEDS: HYDROCORTISONE SOD SUCCINATE 100 MG VIAL IV SCH ×4 (02:25→22:00)
[2018-10-14] MEDS: METRONIDAZOLE 500MG/NS 100ML 100 ML IV SCH ×4 (02:25→22:00)
[2018-10-14] MEDS ORDERED: SODIUM CHLORIDE 0.9% 250ML 0 ML ONE (02:27)
[2018-10-14] MEDS: CEFTRIAXONE SOD 1 GM/NS 50 ML 50 ML IV SCH ×2 (03:12→21:00)
[2018-10-14 06:05] LABS: BASOPHILS # (AUTO) 0.1 (0.0-0.1); BASOPHILS % 0.3 % (0.0-1.0); EOSINOPHILS # (AUTO) 0.7 (0.0-0.4); EOSINOPHILS % 4.3 % (0.0-6.0); HEMATOCRIT 35.5 % (38.2-49.6); HEMOGLOBIN 11.8 g/dL (14.0-18.0); LYMPHOCYTES % 6.3 % (18.0-39.1); MEAN CORPUSCULAR HEMOGLOBIN 32.3 pg (28-32); MEAN CORPUSCULAR HGB CONC 33.2 g/dL (31-35); MEAN CORPUSCULAR VOLUME 97.3 fL (81-99); MONOCYTES # (AUTO) 1.3 (0.2-0.8); MONOCYTES % 7.8 % (4.4-11.3); NEUTROPHILS # (AUTO) 12.7 (2.1-6.9); NEUTROPHILS % 78.9 % (38.7-80.0); PLATELET COUNT 276 x10e3/uL (140-360); RED BLOOD COUNT 3.65 x10e6/uL (4.3-5.7); RED CELL DISTRIBUTION WIDTH 15.7 % (11.7-14.4)
[2018-10-14 06:27] LABS: ANION GAP 10.5 mmol/L (8-16); BLOOD UREA NITROGEN 15 mg/dL (7-26); BUN/CREATININE RATIO 21 (6-25); CALCIUM 7.9 mg/dL (8.4-10.2); CARBON DIOXIDE 23 mmol/L (22-29); CHLORIDE 108 mmol/L (98-107); CREATININE, SERUM 0.72 mg/dL (0.72-1.25); EST GLOMERULAR FILTRATION RATE > 60 ML/MIN (60-); GLUCOSE 111 mg/dL (74-118); POTASSIUM 3.5 mmol/L (3.5-5.1); SODIUM 138 mmol/L (136-145)
--- NOTE | 2018-10-14 08:00 | NUR ---
The pt. is in bed with eyes open and denies pain or discomfort at this time. The pt. is up and about in the room and has worked with PT and walked 600 ft.
[2018-10-14 08:04] LABS: EOSINOPHILS % (MANUAL) 2 % (0-7); LYMPHOCYTES % (MANUAL) 6 % (19-48); MONOCYTES % (MANUAL) 5 % (3.4-9.0); MYELOCYTES % (MANUAL) 1 % (0-0); NEUTROPHILS % (MANUAL) 86 % (40-74)
[2018-10-14 08:05] LABS: PLATELET ESTIMATE ADEQUATE; PLATELET MORPHOLOGY COMMENT NORMAL; RBC MORPHOLOGY COMMENT NORMAL
[2018-10-14] MEDS ORDERED: ALLOPURINOL 100 MG TAB PO SCH (09:00)
[2018-10-14] MEDS: TAMSULOSIN HCL 0.4 MG CAP PO SCH (09:26)
[2018-10-14] MEDS: FOLIC ACID 1 MG TAB PO SCH (09:26)
[2018-10-14] MEDS: PANTOPRAZOLE 40 MG 10ML VIAL IV SCH ×2 (09:26→17:20)
[2018-10-14] MEDS: ALLOPURINOL 300 MG TAB PO SCH (09:26)
[2018-10-14] MEDS: DEXTROSE 5%/0.9% SOD CHL 1,000 ML IV SCH (10:32)
[2018-10-14] MEDS ORDERED: DIATRIZOATE MEGL/DIATRIZOA SOD 30 ML BTL PO ONE (11:55)
--- NOTE | 2018-10-14 14:28 | Diagnostic Imaging Report ---
EXAM: CT Abdomen and Pelvis WITH intravenous contrast INDICATION: Abdominal pain COMPARISON: CT abdomen and pelvis of 10/07/2018 TECHNIQUE: Abdomen and pelvis were scanned utilizing a multidetector helical scanner from the lung base to the pubic symphysis after administration of IV contrast. Coronal and sagittal reformations were obtained. Routine protocol was performed. Scan was performed when during portal venous phase. IV CONTRAST: 100 mL of Isovue-370 ORAL CONTRAST: Gastrografin COMPLICATIONS: None RADIATION DOSE: Total DLP: 513.03 mGy*cm Estimated effective dose: (DLP x 0.015 x size factor) mSv Dose modulation, iterative reconstruction, and/or weight based adjustment of the mA/kV was utilized to reduce the radiation dose to as low as reasonably achievable. FINDINGS: LOWER THORAX: Normal. HEPATOBILIARY: No focal hepatic lesions. No biliary ductal dilatation. The gallbladder appears unremarkable. There is dilation of the distal common bile duct which measures up to 14 x 11 mm. Further distally, there is questionable soft tissue density and tapering. SPLEEN: No splenomegaly. PANCREAS: Mild prominence of the pancreatic duct with no focal mass identified. ADRENALS: No adrenal nodules. KIDNEYS/URETERS: No hydronephrosis, stones, or solid mass lesions. Bilateral renal cysts, subcentimeter on the right and measuring up to 2.3 cm on the left. PELVIC ORGANS/BLADDER: Unremarkable. PERITONEUM / RETROPERITONEUM: No free air or fluid. LYMPH NODES: No lymphadenopathy. VESSELS: Atherosclerotic calcifications involve the abdominal aorta and major branches. GI TRACT: Colonic diverticulosis with no CT evidence of diverticulitis. No distention or wall thickening. Normal appendix. BONES AND SOFT TISSUES: Mild degenerative changes of the visualized spine. No suspicious lytic or blastic lesions. IMPRESSION: Distal common bile duct dilation with possible soft tissue density and tapering further distally. Recommend further evaluation with MRCP. Signed by: Bianka Graham MD on 10/14/2018 2:24 PM
[2018-10-14] MEDS ORDERED: SODIUM CHLORIDE 0.9% 50ML 50 ML ONE (16:25)
[2018-10-14] MEDS ORDERED: IOPAMIDOL 370 MG/ML 200 ML INFUS..BTL INJ ONE (16:26)
[2018-10-14 17:04] LABS: CREATINE KINASE 65 IU/L (30-200)
--- NOTE | 2018-10-14 19:12 | NUR ---
Received change of shift report from AM nurse. Walking rounds completed.
--- NOTE | 2018-10-14 21:00 | NUR ---
Patient up to bathroom. States he has no pain at this time but some episodes of diarrhea. Will assess patient when complete bathroom. Denies vomiting.
[2018-10-15] VITALS (7 sets, daily range): BP systolic 130–163; BP diastolic 64–81
--- NOTE | 2018-10-15 00:30 | NUR ---
Dr Tran on the floor to see patient. Will f/u with new orders
--- NOTE | 2018-10-15 00:32 | Consultation ---
DATE OF CONSULTATION: 10/14/2018 REASON FOR CONSULTATION: Fever and chills. HISTORY OF PRESENT ILLNESS: This patient, who was recently in the hospital. He is a 77-year-old [place] gentleman, who has history of severe rheumatoid arthritis. He was recently in the hospital with fever, chills, and generalized pain in all the joints. At that time, his culture was negative, felt to be flare up of his rheumatoid arthritis, was given prednisone and discharged home with prednisone and Keflex. He is telling me he was doing well, but had one episode of nausea and vomiting and felt really bad, came to the emergency room yesterday. When he was being admitted, I am asked to see him, started on IV fluids. Discussed with Dr. Lovell yesterday, started on Rocephin and Flagyl. The patient is telling me he is feeling better. At the present time, no complaints. PAST MEDICAL HISTORY: Significant for rheumatoid arthritis. PAST SURGICAL HISTORY: Denies. ALLERGIES: NKA. SOCIAL HISTORY: There is no smoking, drug abuse, or alcohol abuse. FAMILY HISTORY: Otherwise noncontributory. REVIEW OF SYSTEMS: HEENT: Negative. PULMONARY: Negative. CARDIAC: Negative. : Negative. PHYSICAL EXAMINATION: GENERAL: He is currently alert, oriented, does not seem to be in acute distress. VITAL SIGNS: Stable. Currently afebrile. HEENT: He is not icteric. NECK: Supple. CHEST: Clear. HEART: S1, S2. No murmur. ABDOMEN: Soft. Bowel sounds present. No tenderness. EXTREMITIES: No edema. SKIN: No rash. LABORATORY DATA: Reviewed. Chart reviewed. I have reviewed his results from the last time. His white count when he first came was 23.9, hemoglobin 13. Sodium 138, potassium 3.5. IMPRESSION: Concerned about sepsis. Obtain blood cultures, urine cultures. Concerned about intraabdominal process. Obtain CAT scan of abdomen and pelvis. I will put him on Rocephin and Flagyl. Further recommendations to follow. Addendum: A CAT scan showed dilated common bile duct. Recommend MRCP. GI has been consulted. We will follow. Continue with the current choice of antibiotics. MD ALLISON Avelar/JANE /[id number]
[2018-10-15] MEDS: DEXTROSE 5%/0.9% SOD CHL 1,000 ML IV SCH ×2 (01:54→07:15)
--- NOTE | 2018-10-15 02:16 | NUR ---
Patient AAOx3. IV intact and patent. Denies pain at this time. Patient sitting up in chair. Continue monitor.
[2018-10-15] MEDS: METRONIDAZOLE 500MG/NS 100ML 100 ML IV SCH ×3 (05:28→21:03)
[2018-10-15] MEDS: HYDROCORTISONE SOD SUCCINATE 100 MG VIAL IV SCH (05:28)
--- NOTE | 2018-10-15 06:34 | NUR ---
Patient resting quitly with no c/o at this time. Continue monitor for changes in condition.
--- NOTE | 2018-10-15 08:00 | NUR ---
Rounding completed at shift change and the pt was in bed awake and without difficulty. He is n p o for m r c p today.
[2018-10-15] MEDS ORDERED: SODIUM CHLORIDE 0.9% 100 ML 100 ML ONE (09:45)
[2018-10-15] MEDS ORDERED: GADOBENATE DIMEGLUMINE 1 ML IV ONE (09:45)
[2018-10-15] MEDS: ALLOPURINOL 300 MG TAB PO SCH (09:46)
[2018-10-15] MEDS: TAMSULOSIN HCL 0.4 MG CAP PO SCH (09:46)
[2018-10-15] MEDS: FOLIC ACID 1 MG TAB PO SCH (09:46)
[2018-10-15] MEDS: PANTOPRAZOLE 40 MG 10ML VIAL IV SCH ×2 (09:46→18:15)
[2018-10-15] MEDS: HEPARIN SOD (PORCINE) 5,000 UNIT/ML VIAL SC SCH ×2 (09:47→21:00)
--- NOTE | 2018-10-15 10:30 | NUR ---
The pt. comp of diarrhea and skin tear. The dr is here and notified of the diarrhea and instructions for stool spec received.
[2018-10-15] MEDS: AMLODIPINE BESYLATE 10 MG TAB PO SCH (12:51)
[2018-10-15] MEDS: VANCOMYCIN 250MG/5ML ORAL SOLN PO SCH ×2 (12:52→18:15)
--- NOTE | 2018-10-15 16:18 | Diagnostic Imaging Report ---
EXAM: MR Abdomen WITHOUT and WITH Contrast Magnetic Resonance Cholangiopancreatography (M.R.C.P.) INDICATION: ^radiology rec biliary lesion COMPARISON: CT abdomen and pelvis 10/14/2018. TECHNIQUE: Multiplanar and multisequence imaging was performed of the abdomen without and with contrast. T1-weighted, T2-weighted images, T1-weighted in and [id number], and Diffusion weighted images. Dynamic, post gadolinium T1-weighted spoiled gradient echo scans. M.R.C.P. Technique: Multiplanar, multisequence MRCP was performed, with sequences including coronal turbo spin-echo T1-weighted scans, [facility] MRCP scans, coronal spin, coronal MPR 2, [facility], [facility] MRCP SAINZ. Thin and thick slab MRCP sequences with 3-D rotational images performed by the technologist at the scanner workstation and supervised by the radiologist. IV Contrast: 13 mL of Magnevist gadolinium Oral Contrast: None Medications: None COMPLICATIONS: None FINDINGS: LOWER THORAX: Unremarkable. HEPATOBILIARY: No focal hepatic lesions. Common bile duct measures 0.9 cm at the level of the cystic duct insertion. This gradually tapers. Pancreatic duct measures 0.2 cm. There is a long common channel length measuring 0.5 by 1.8 cm. At the ampulla of Vater there is a 1.2 x 0.6 cm gradually enhancing lesion (series 10, image 75). GALLBLADDER: No radio-opaque stones or sludge. No wall thickening. SPLEEN: No splenomegaly. PANCREAS: No focal masses or ductal dilatation. ADRENALS: No adrenal nodules KIDNEYS/URETERS: Kidneys enhance symmetrically. No hydronephrosis. Multiple bilateral nonenhancing T2 hyperintense cysts. Largest measures 2.1 cm in the superior pole of the left kidney. No stones. GI TRACT: No abnormal distention, wall thickening, or evidence of bowel obstruction. LYMPH NODES: No lymphadenopathy. VESSELS: Unremarkable. PERITONEUM / RETROPERITONEUM: No free air or fluid. BONES: Unremarkable. SOFT TISSUES: Unremarkable. IMPRESSION: 1. 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 2. Common bile duct is enlarged measuring 0.9 cm at the cystic duct insertion level. However, this gradually decreases in caliber. Distal common bile duct at the pancreatic head is prominent measuring 0.5 x 1.8 cm with a long common channel. Recommend ERCP. Signed by: Dr. Gianfranco Lara M.D. on 10/15/2018 4:14 PM
--- NOTE | 2018-10-15 19:49 | NUR ---
Received change of shift report from AM nurse. Walking rounds completed.
[2018-10-15] MEDS: CEFTRIAXONE SOD 1 GM/NS 50 ML 50 ML IV SCH (21:00)
[2018-10-16] VITALS (8 sets, daily range): BP systolic 144–168; BP diastolic 64–78
--- NOTE | 2018-10-16 | NUR ---
Patient up ambulating to bathroom with no difficulty. Denies pain. AAOx3. No c/o at this time. Continue monitor.
--- NOTE | 2018-10-16 01:30 | NUR ---
Dr Tran on the floor to see patient. Orders written and completed.
[2018-10-16] MEDS: METRONIDAZOLE 500MG/NS 100ML 100 ML IV SCH (05:26)
[2018-10-16] MEDS: VANCOMYCIN 250MG/5ML ORAL SOLN PO SCH ×5 (05:27→23:59)
--- NOTE | 2018-10-16 06:42 | NUR ---
Patient resting quitly at this time.
[2018-10-16 07:10] LABS: BASOPHILS # (AUTO) 0.1 (0.0-0.1); BASOPHILS % 0.3 % (0.0-1.0); EOSINOPHILS # (AUTO) 0.3 (0.0-0.4); EOSINOPHILS % 2.1 % (0.0-6.0); HEMATOCRIT 37.4 % (38.2-49.6); HEMOGLOBIN 12.5 g/dL (14.0-18.0); LYMPHOCYTES % 6.5 % (18.0-39.1); MEAN CORPUSCULAR HEMOGLOBIN 32.1 pg (28-32); MEAN CORPUSCULAR HGB CONC 33.4 g/dL (31-35); MEAN CORPUSCULAR VOLUME 96.1 fL (81-99); MONOCYTES # (AUTO) 1.4 (0.2-0.8); MONOCYTES % 9.2 % (4.4-11.3); NEUTROPHILS # (AUTO) 12.3 (2.1-6.9); PLATELET COUNT 320 x10e3/uL (140-360); RED BLOOD COUNT 3.89 x10e6/uL (4.3-5.7); RED CELL DISTRIBUTION WIDTH 15.4 % (11.7-14.4)
[2018-10-16 07:12] LABS: ANION GAP 10.8 mmol/L (8-16); BLOOD UREA NITROGEN 8 mg/dL (7-26); BUN/CREATININE RATIO 10 (6-25); CALCIUM 8.4 mg/dL (8.4-10.2); CARBON DIOXIDE 24 mmol/L (22-29); CHLORIDE 106 mmol/L (98-107); CREATININE, SERUM 0.81 mg/dL (0.72-1.25); EST GLOMERULAR FILTRATION RATE > 60 ML/MIN (60-); GLUCOSE 104 mg/dL (74-118); SODIUM 138 mmol/L (136-145)
--- NOTE | 2018-10-16 07:15 | NUR ---
PATIENT OUT OF BED TO RECLINING CHAIR WATCHING TV, NO DISTRESS NOTED. DENIED PAIN AT THIS TIME. IV FLUID INFUSING ORDERED. EDEMA NOTED TO HANDS. ELEVATED ON PILLOW. CALL LIGHT AT EASY REACH. INSTRUCTED TO CALL FOR ASSISTANCE NEEDED.
[2018-10-16 07:18] LABS: POTASSIUM 2.8 mmol/L (3.5-5.1)
--- NOTE | 2018-10-16 07:50 | NUR ---
CALL PLACED TO MD REGARDING ABNORMAL LAB, AWAITING CALL BACK.
--- NOTE | 2018-10-16 08:00 | NUR ---
CALL BACK RECEIVED FROM , NOTIFIED OF ABNORMAL LAB RESULT, NEW ORDER RECEIVED.
[2018-10-16] MEDS: DEXTROSE 5%/0.9% SOD CHL 1,000 ML IV SCH ×3 (08:15→20:45)
[2018-10-16] MEDS ORDERED: POTASSIUM CHLORIDE 20MEQ/100ML 200 ML IV ONE (08:30)
[2018-10-16] MEDS: AMLODIPINE BESYLATE 10 MG TAB PO SCH (09:00)
[2018-10-16] MEDS: ALLOPURINOL 300 MG TAB PO SCH (09:00)
[2018-10-16] MEDS: FOLIC ACID 1 MG TAB PO SCH (09:00)
[2018-10-16] MEDS: HEPARIN SOD (PORCINE) 5,000 UNIT/ML VIAL SC SCH ×2 (09:00→22:08)
[2018-10-16] MEDS: TAMSULOSIN HCL 0.4 MG CAP PO SCH (09:00)
[2018-10-16] MEDS: PANTOPRAZOLE 40 MG 10ML VIAL IV SCH ×2 (09:39→17:21)
[2018-10-16] MEDS: HYDROCORTISONE SOD SUCCINATE 100 MG VIAL IV SCH (09:40)
--- NOTE | 2018-10-16 15:42 | NUR ---
IV POTASSIUM COMPLETED, LAB RECHECKED WITH THE READING OF 3.4, OR NOTIFIED. IN AT THIS TIME.
[2018-10-16] MEDS ORDERED: LIDOCAINE HCL 2% LOCAL INJ 5 ML SDV VIAL INJ ONE (17:58)
[2018-10-16] MEDS ORDERED: ROCURONIUM BROMIDE 10 MG/ML 5ML VIAL ONE (17:58)
[2018-10-16] MEDS ORDERED: PROPOFOL IV EMULSION 10 MG/ML 20 ML VIAL ONE (17:58)
--- NOTE | 2018-10-16 19:59 | NUR ---
Patient brought to OR for procedure.
[2018-10-16] MEDS ORDERED: SUGAMMADEX SODIUM 200 MG/2 ML VIAL IV ONE (20:18)
[2018-10-16] MEDS ORDERED: INDOMETHACIN 50 MG SUPP.RECT RC ONE (20:19)
[2018-10-16] MEDS ORDERED: IOPAMIDOL 200 MG/ML 20 ML VIAL IT ONE (20:19)
[2018-10-16] MEDS ORDERED: IOPAMIDOL 610MG/1ML 300 MG/ML VIAL IV ONE (20:25)
--- NOTE | 2018-10-16 22:08 | NUR ---
patient came back from PACU via stretcher. Alert and oriented no complaint of nausea or vomiting.
[2018-10-17] VITALS (8 sets, daily range): BP systolic 124–157; BP diastolic 63–78
--- NOTE | 2018-10-17 02:52 | Operative Report ---
DATE OF PROCEDURE: 10/16/2018 SURGEON: Iraj Tran MD PROCEDURE: EGD/ERCP. INDICATIONS FOR PROCEDURE: Upper abdominal pain, abnormal MRCP. MEDICATIONS: The patient was done under general endotracheal anesthesia, please see anesthesiologist's note. PROCEDURE IN DETAIL: With the patient in left lateral decubitus position and after induction of adequate general endotracheal anesthesia, the flexible fiberoptic Olympus gastroscope was introduced into the esophagus under direct visualization without any difficulty. There was some patchy erythema noted in distal esophagus. The scope was then advanced with ease into the stomach, mucosa overlying the antrum and the body revealed some patchy erythema and [id number] edema and biopsies were obtained and sent to stain for H. pylori. Pylorus was normal contour and shape, it was intubated with ease and the scope was advanced all the way to the second portion of the duodenum. The ampulla was not well visualized, but the proximal second portion of the duodenum as well as duodenal bulb grossly appeared to be within normal limits. The scope was then withdrawn back into the stomach and retroflexed and mucosa overlying the fundus and cardia appeared to be within normal limits. The scope was then straightened out, it was subsequently withdrawn, patient tolerated procedure well. IMPRESSION: 1. Mild distal esophagitis. 2. Gastritis, biopsied, biopsies sent to stain for H. pylori. PLAN: Follow up histology. Continue PPI therapy. Then, the flexible fiberoptic Olympus side-viewing scope was inserted into the esophagus with ease and advanced all the way to the second portion of the duodenum. The ampulla was that identified and appeared somewhat generous. An attempt to cannulate the ampulla orifice preferentially went into what appeared to be a generous pancreatic duct. Despite several attempts, the common bile duct could not be cannulated. The sphincterotome was then withdrawn and the scope was subsequently withdrawn. Patient tolerated the procedure well. IMPRESSION: Pancreatic duct appears somewhat dilated. CBD could not be intubated. We will review images with the radiologist. MD ISAAC Worrell/JANE /[id number] cc: Pradeep Lovell MD
[2018-10-17] MEDS: VANCOMYCIN 250MG/5ML ORAL SOLN PO SCH ×3 (05:35→18:00)
--- NOTE | 2018-10-17 07:00 | NUR ---
RCD PT AT BED PT IS ALERT AND ORIENTED PT RESTING ON BED NO SIGNS OF ANY DISTRESS NOTED IV PATENT BED LOW AND LOCKED CALL LIGHT IN REACH
[2018-10-17] MEDS: PANTOPRAZOLE 40 MG 10ML VIAL IV SCH ×2 (08:54→16:43)
[2018-10-17] MEDS: TAMSULOSIN HCL 0.4 MG CAP PO SCH (08:54)
[2018-10-17] MEDS: HYDROCORTISONE SOD SUCCINATE 100 MG VIAL IV SCH (08:54)
[2018-10-17] MEDS: HEPARIN SOD (PORCINE) 5,000 UNIT/ML VIAL SC SCH ×2 (09:00→21:31)
[2018-10-17] MEDS: AMLODIPINE BESYLATE 10 MG TAB PO SCH (09:00)
[2018-10-17] MEDS: FOLIC ACID 1 MG TAB PO SCH (09:00)
[2018-10-17] MEDS: ALLOPURINOL 300 MG TAB PO SCH (09:00)
[2018-10-17] MEDS: DEXTROSE 5%/0.9% SOD CHL 1,000 ML IV SCH (09:15)
[2018-10-17] MEDS ORDERED: DEXTROSE 50% SYRINGE 50 ML IV PRN (11:00)
[2018-10-17] MEDS: SODIUM CHLORIDE 0.9% 1000ML 1,000 ML IV SCH (11:00)
--- NOTE | 2018-10-17 11:00 | NUR ---
PT DAUGHTER WANTED TO TALK DR Cristhian ORTEGA TALKED TO BRENDA IN ENDOSCOPY AND GAVE THE PHONE NUMBER TO DR ORTEGA
--- NOTE | 2018-10-17 11:15 | NUR ---
PT C/O DIFFICULTY IN PASS URINE BLADDER SCAN DONE [address] MONTILLA HE PUT CONSULTATION TO UROLOGY AND URINE TEST
[2018-10-17] MEDS ORDERED: INSULIN LISPRO 100 UNIT/1 ML 3ML VIAL SQ SCH (11:30)
[2018-10-17 11:38] LABS: BILIRUBIN,URINE NEGATIVE (NEGATIVE); CLARITY,URINE CLEAR (CLEAR); COLOR,URINE YELLOW (YELLOW); KETONES,URINE NEGATIVE (NEGATIVE); LEUKOCYTE ESTERASE ,URINE NEGATIVE (NEGATIVE); NITRITE,URINE NEGATIVE (NEGATIVE); PROTEIN,URINE DIPSTICK NEGATIVE (NEGATIVE); URINE UROBILINOGEN 0.2 mg/dL (0.2 - 1)
[2018-10-17 12:16] LABS: BACTERIA,URINE RARE /HPF; EPITHELIAL CELLS,URINE RARE /LPF; RBC,URINE 0-5 /HPF (0-5); WBC,URINE (MAN) 0-5 /HPF (0-5)
--- NOTE | 2018-10-17 12:16 | Diagnostic Imaging Report ---
PRELIMINARY REPORT: Study: ERCP Comparison: None available. Indication: Vomiting, dehydration,, request for a stat report Results: 1. The report from the procedure is not available. 2. Two fluoroscopic spot images and one scanned film image are submitted. 3. On one of the images the curved radiopaque device obscures a portion of the common bile duct. Radiopaque material appears to partially opacify the visualized portion of the common bile duct. On both of the images there is a small indeterminate dense radiopaque density projecting in the region of the distal common bile duct, correlate with specific details from the procedure. 4. Final report to follow.
--- NOTE | 2018-10-17 14:00 | NUR ---
STROUD CATHETERIZATION DONE WITH 18FR AND CLARIFIED WITH CHARGE NURSE BECAUSE THE URINE FLOW IS
--- NOTE | 2018-10-17 14:13 | NUR ---
Called by Yoli WEST and Krys RN to patients bedside to verify placement of urinary catheter. Flushed catheter with 30 ml of sterile water and no return of flush. Unable to advance catheter and there is blood showing in the catheter. The water was removed from balloon and urine began to drain, catheter carefully advanced past prostate and urine began to flow freely. Urine is clear, no blood in urine from bladder. 7mls placed in the balloon. Stat lock is securing tubing. Patient tolerated procedure well, and he expressed total pain relief after adjusting the catheter.
[2018-10-17] MEDS ORDERED: FENTANYL CITRATE/PF 100MCG/2 ML INJ ONE (18:45)
--- NOTE | 2018-10-17 19:20 | NUR ---
Received patient from day nurse, patient is alert and oriented, safety and fall precautions maintained as per hospital protocol: bed in lowest position and locked, needed items at bed side and call daniel placed close to patient, bed alarm on patient, patient encouraged to use the call light at all times for help, verbalized understanding. patient is currently stable will continue to monitor. patient is a namibian and denies need for interpretor services at this time.arias care done
--- NOTE | 2018-10-17 19:24 | NUR ---
PT RESTING ON BED BED SIDE REPORT GIVEN TO ONCOMING NURSE
--- NOTE | 2018-10-17 19:40 | Consultation ---
DATE OF CONSULTATION: 10/17/2018 Urology Consultation Consultation is called by Dr. Pradeep Lovell. CHIEF COMPLAINT AND REASON FOR CONSULTATION: Urinary retention and BPH. HISTORY OF PRESENT ILLNESS: Mr. Ayush Ness is a 77-year-old male patient, admitted to the hospital with nausea, vomiting, common bile duct dilation. He is also noted to have C difficile colitis. He is a patient of Dr. Alberto Ness's, urologically he has been following him for quite some time and been treated with BPH with medications per report. PAST MEDICAL HISTORY: Significant for BPH, COPD, rheumatoid arthritis, anemia, status post thyroidectomy. MEDICATIONS: Please see MAR. ALLERGIES: NSAIDS AND ASPIRIN. SOCIAL HISTORY: Positive alcohol. Denied smoking. FAMILY HISTORY: Denied urologic stones or malignancies. REVIEW OF SYSTEMS: Noncontributory other than problems mentioned above for 12 organ systems. PHYSICAL EXAMINATION: GENERAL: Elderly male, in no acute distress. VITAL SIGNS: Currently temperature 95.8, pulse 82, respirations 18, blood pressure 157/74. HEENT: The sclerae are anicteric. NECK: Supple. BACK: Without costovertebral angle tenderness bilaterally. ABDOMEN: Soft. It is nontender. It is nondistended. I cannot palpate the bladder. GENITOURINARY: Normal male external genitalia. EXTREMITIES: No edema. NEUROLOGIC: Moves all 4 extremities. PSYCH: Alert and appropriate. SKIN: Intact. Normal color. PERTINENT LABORATORY DATA: CT scan revealing bilateral renal cysts, common bile duct dilation, and degenerative joint disease. Hemoglobin 12, hematocrit 37, platelet count 320,000, white blood cell count 15,400. Sodium 138, potassium 3.4, chloride 108, bicarb 23, BUN 15, creatinine 0.72, glucose 111, calcium 7.9. Urinalysis, trace protein, 2+ ketones, 0-5 reds, 0-5 whites. Postvoid residual of 346 mL. IMPRESSION: 1. Benign prostatic hypertrophy. 2. Urinary retention/incomplete emptying. 3. Renal cyst, simple bilateral. 4. Proteinuria. 5. Anemia. 6. Hypokalemia. 7. Hypocalcemia. 8. Hypertension. PLAN: For electrolytes and hematologic abnormalities, we will defer to the primary service and spoke with the patient at length regarding the need for a Castillo catheter. He states he wants one. The patient is on his tamsulosin, however, despite this, still continues to have voiding difficulty. We will place the Castillo catheter and allow the patient to follow up with the urologist of his choice. The patient's proteinuria explained this is a sign of impending renal disease. Strongly recommend followup with Nephrology. Thank you for allowing me to participate in the care of your patient. I will be happy to follow along with you. Jaylen Hamilton MD ES/MODL /[id number] cc: MD Pradeep Worrell MD
--- NOTE | 2018-10-17 20:15 | Progress Note ---
DATE: 10/17/2018 SUBJECTIVE: Mr. Ness had a problem with the urine today, but currently he is feeling better. He had a Castillo catheter. The patient underwent EGD with ERCP, showed mild distal esophagitis. The ampulla was not identified. The patient currently is doing well at present time. Discussed with Internal Medicine, Dr. Lovell. PHYSICAL EXAMINATION: GENERAL: He is currently alert, oriented, does not seem to be in acute distress. VITAL SIGNS: Stable. Currently afebrile. HEENT: He is not icteric. NECK: Supple. No JVD. No lymphadenopathy. No thyromegaly. CHEST: Clear bilateral. HEART: S1, S2. No S3, S4, or murmur. ABDOMEN: Soft. Bowel sounds present. No tenderness. EXTREMITIES: No edema. SKIN: No rash. His diarrhea has improved. REVIEW OF SYSTEMS: Otherwise, beside the urine issue earlier today, he currently has no problems. IMPRESSION AND PLAN: 1. Clostridium difficile. Continue with oral vancomycin for 2 weeks. 2. Abnormal MRCP, worrisome. ERCP did not see it. I discussed with Dr. Lovell. 3. Hematuria after probably urine, now has a Castillo. 4. History of rheumatoid arthritis, seem to be stable. 5. We will follow. MD ALLISON Avelar/JANE /[id number]
--- NOTE | 2018-10-17 20:20 | Diagnostic Imaging Report ---
EXAM: Transabdominal Pelvic Ultrasound INDICATION: Benign prostatic hyperplasia COMPARISON: Abdominal MRI 10/15/2018 TECHNIQUE: Grayscale transverse and sagittal transabdominal images were obtained of the pelvis. CLINICAL HISTORY: FINDINGS: Urinary bladder Castillo catheter in place, the bladder is decompressed. No gross bladder abnormality. The prostate measures 3.6 x 3.5 x 3.6 cm, total volume of 23.3 mL. IMPRESSION: Prostate volume is within normal limits. Signed by: Сергей Quintero DO on 10/17/2018 8:17 PM
[2018-10-18] MEDS: VANCOMYCIN 250MG/5ML ORAL SOLN PO SCH ×4 (00:35→17:33)
[2018-10-18 01:28] VITALS: BP 126/76
[2018-10-18] MEDS: SODIUM CHLORIDE 0.9% 1000ML 1,000 ML IV SCH (04:46)
[2018-10-18 05:10] VITALS: BP 140/70
--- NOTE | 2018-10-18 06:30 | NUR ---
Patient endorsed to next shift for continuity of care.
--- NOTE | 2018-10-18 07:00 | NUR ---
RCD PT AT BED PT IS ALERT AND ORIENTED PT RESTING ON BED NO SIGNS OF ANY DISTRESS NOTED BED LOW AND LOCKED CALL LIGHT IN REACH
[2018-10-18 07:04] LABS: BASOPHILS # (AUTO) 0.1 (0.0-0.1); BASOPHILS % 0.3 % (0.0-1.0); EOSINOPHILS # (AUTO) 0.5 (0.0-0.4); EOSINOPHILS % 2.7 % (0.0-6.0); HEMOGLOBIN 13.6 g/dL (14.0-18.0); LYMPHOCYTES # (AUTO) 2.1 (1.0-3.2); LYMPHOCYTES % 11.2 % (18.0-39.1); MEAN CORPUSCULAR HEMOGLOBIN 32.3 pg (28-32); MONOCYTES # (AUTO) 1.5 (0.2-0.8); MONOCYTES % 7.7 % (4.4-11.3); NEUTROPHILS # (AUTO) 14.6 (2.1-6.9); NEUTROPHILS % 76.5 % (38.7-80.0); PLATELET COUNT 335 x10e3/uL (140-360); RED BLOOD COUNT 4.21 x10e6/uL (4.3-5.7); RED CELL DISTRIBUTION WIDTH 15.2 % (11.7-14.4)
[2018-10-18 07:26] LABS: ALANINE AMINOTRANSFERASE 36 IU/L (0-55); ALBUMIN 3.2 g/dL (3.5-5.0); ALBUMIN/GLOBULIN RATIO 0.9 (0.8-2.0); ALKALINE PHOSPHATASE 46 IU/L (40-150); BLOOD UREA NITROGEN 6 mg/dL (7-26); BUN/CREATININE RATIO 7 (6-25); CALCIUM 8.9 mg/dL (8.4-10.2); CARBON DIOXIDE 23 mmol/L (22-29); CHLORIDE 106 mmol/L (98-107); CREATININE, SERUM 0.85 mg/dL (0.72-1.25); EST GLOMERULAR FILTRATION RATE > 60 ML/MIN (60-); GLUCOSE 92 mg/dL (74-118); SODIUM 140 mmol/L (136-145)
[2018-10-18 07:59] VITALS: BP 155/71
[2018-10-18] MEDS: HYDROCORTISONE SOD SUCCINATE 100 MG VIAL IV SCH (09:00)
[2018-10-18] MEDS: HEPARIN SOD (PORCINE) 5,000 UNIT/ML VIAL SC SCH ×2 (09:00→21:08)
[2018-10-18] MEDS: PANTOPRAZOLE 40 MG 10ML VIAL IV SCH ×2 (09:00→16:48)
[2018-10-18] MEDS: AMLODIPINE BESYLATE 10 MG TAB PO SCH (09:00)
[2018-10-18] MEDS: FOLIC ACID 1 MG TAB PO SCH (09:00)
[2018-10-18] MEDS: TAMSULOSIN HCL 0.4 MG CAP PO SCH (09:00)
[2018-10-18] MEDS: ALLOPURINOL 300 MG TAB PO SCH (09:00)
[2018-10-18 11:32] VITALS: BP 153/67
--- NOTE | 2018-10-18 14:40 | NUR ---
Visit made by the Spiritual Care Department Pastoral Visitor, Sebastien Rodriguez. PV provided pastoral presence, prayer, communion, hospitality, and supportive listening. Pastoral Visitor informed pt/family of the scope of Freedom Of Information Officer Services and availability. CASE MULLEN [employer] Spiritual Care Department O: [phone] Pager: [phone] ([phone] number calling from)
[2018-10-18 15:40] VITALS: BP 122/59
--- NOTE | 2018-10-18 18:48 | NUR ---
PT RESTING ON BED BED SIDE REPORT GIVEN TO ONCOMING NURSE
[2018-10-18 20:33] VITALS: BP 142/69
--- NOTE | 2018-10-18 21:30 | Progress Note ---
DATE: 10/18/2018 SUBJECTIVE: Mr. Ness is feeling better today. There is no more diarrhea. REVIEW OF SYSTEMS: HEENT: Negative. PULMONARY: Negative. CARDIAC: Negative. : Negative. His urine is better today. GI: Negative. LABORATORY DATA: Reviewed. Urine cultures still no growth. His white count today is 19.5, hemoglobin 13, hematocrit 40. Sodium 140, potassium 3.0. MEDICATION LIST: Reviewed. Also, he is on oral vancomycin, Protonix, and Solu-Cortef. PHYSICAL EXAMINATION: GENERAL: He is currently alert, oriented, does not seem to be in acute distress. VITAL SIGNS: Stable, currently afebrile. HEENT: Normocephalic, not icteric. EXTREMITIES: erythema and edema, but seems to me better than last time. IMPRESSION: 1. Clostridium difficile getting better. 2. Leukocytosis. The patient has steroid. 3. Rheumatoid arthritis, he is better. 4. Abnormal MRCP, repeat later. 5. Hematuria, better. 6. Stable from Infectious Disease point of view, can be discharged home tomorrow with oral vancomycin 250 p.o. t.i.d. for two weeks, prednisone 50 mg p.o. daily. Follow up with Dermatology. Follow up with me and follow up with GI to repeat ERCP. MD ALLISON Avelar/JANE /[id number]
[2018-10-19] VITALS (7 sets, daily range): BP systolic 116–161; BP diastolic 58–76
[2018-10-19] MEDS: VANCOMYCIN 250MG/5ML ORAL SOLN PO SCH ×5 (07:14→23:16)
--- NOTE | 2018-10-19 07:16 | NUR ---
patient endorsed to next shift for continuity of care.
--- NOTE | 2018-10-19 07:30 | NUR ---
REC'D PT AAOX3, LAYING IN BED IN SEMI-CHO'S POSITION, CONTACT ISOLATION FOR C-DIFF. PT ON ROOM AIR, NO S/S OF DISTRESS, STROUD IN PLACE DUE TO URINE RETENTION. BED IN LOWEST POSITION, SIDE RAILS UP X2, AND CALL ASENCIO WITHIN REACH.
[2018-10-19] MEDS ORDERED: ALBUTEROL/IPRATROPIUM 3 ML NEB NEB PRN (09:00)
[2018-10-19] MEDS: BUDESONIDE/FORMOTEROL 160/4.5MCG INHALER INH SCH ×2 (09:00→19:35)
[2018-10-19] MEDS: HEPARIN SOD (PORCINE) 5,000 UNIT/ML VIAL SC SCH ×2 (09:00→21:00)
[2018-10-19] MEDS: ALLOPURINOL 300 MG TAB PO SCH (09:25)
[2018-10-19] MEDS: AMLODIPINE BESYLATE 10 MG TAB PO SCH (09:25)
[2018-10-19] MEDS: TAMSULOSIN HCL 0.4 MG CAP PO SCH (09:25)
[2018-10-19] MEDS: FOLIC ACID 1 MG TAB PO SCH (09:25)
[2018-10-19] MEDS: PANTOPRAZOLE 40 MG 10ML VIAL IV SCH ×2 (09:25→16:13)
[2018-10-19] MEDS: HYDROCORTISONE SOD SUCCINATE 100 MG VIAL IV SCH (09:25)
[2018-10-19] MEDS: DOCUSATE SODIUM 100 MG CAP PO SCH ×2 (09:25→16:16)
--- NOTE | 2018-10-19 12:08 | Diagnostic Imaging Report ---
EXAMINATION: CHEST 2 VIEWS INDICATION: Shortness of breath COMPARISON: None FINDINGS: TUBES and LINES: None. LUNGS: The lungs are well inflated. No focal consolidation or pulmonary edema. PLEURA: No pleural effusion or pneumothorax. HEART AND MEDIASTINUM: The cardiomediastinal silhouette is normal in size and contour. Atherosclerotic calcifications of the thoracic aorta. BONES AND SOFT TISSUES: No acute fracture or dislocation. Moderate degenerative changes of the thoracic spine. UPPER ABDOMEN: No free air under the diaphragm. IMPRESSION: No focal pneumonia or pulmonary edema. Signed by: Bianka Graham MD on 10/19/2018 12:04 PM
[2018-10-19] MEDS: ALBUTEROL/IPRATROPIUM 3 ML NEB NEB SCH ×2 (13:00→19:35)
[2018-10-19] MEDS: METRONIDAZOLE 250MG/NS 50ML 50 ML IV SCH ×2 (14:30→21:25)
--- NOTE | 2018-10-19 17:19 | NUR ---
PATIENT IS SITTING ON RECLINER WITHOUT ANY S/S OF DISTRESS. NON-SKID SOCKS ON BLE. SIDE RAILS UP X2, BED IN LOWEST POSITION, AND CALL ASENCIO WITHIN REACH.
--- NOTE | 2018-10-19 18:16 | NUR ---
PATIENT IS SITTING AT THE SIDE OF THE BED, NO S/S OF DISTRESS, BED IN LOWEST POSITION, SIDE RAILS UP X2, AND CALL ASENCIO WITHIN REACH.
--- NOTE | 2018-10-19 19:00 | NUR ---
Received change of shift report from AM nurse. Walking rounds completed.
--- NOTE | 2018-10-19 22:06 | NUR ---
Removed leg bag and place regular arias bag. 30cc of felipa color urine empied.
[2018-10-20] VITALS: BP 136/73
--- NOTE | 2018-10-20 00:32 | NUR ---
PATIENT RESTING QUITLY AT THIS TIME WITH NO C/O NOTED.
[2018-10-20] MEDS: ALBUTEROL/IPRATROPIUM 3 ML NEB NEB SCH ×3 (01:02→13:10)
[2018-10-20 04:00] VITALS: BP 104/58
[2018-10-20] MEDS: METRONIDAZOLE 250MG/NS 50ML 50 ML IV SCH ×2 (05:27→13:35)
[2018-10-20] MEDS: VANCOMYCIN 250MG/5ML ORAL SOLN PO SCH ×3 (05:27→18:14)
[2018-10-20 05:34] LABS: BASOPHILS # (AUTO) 0.1 (0.0-0.1); BASOPHILS % 0.4 % (0.0-1.0); EOSINOPHILS # (AUTO) 0.3 (0.0-0.4); EOSINOPHILS % 1.5 % (0.0-6.0); HEMATOCRIT 37.6 % (38.2-49.6); HEMOGLOBIN 12.8 g/dL (14.0-18.0); LYMPHOCYTES # (AUTO) 1.4 (1.0-3.2); LYMPHOCYTES % 7.9 % (18.0-39.1); MEAN CORPUSCULAR HEMOGLOBIN 31.7 pg (28-32); MEAN CORPUSCULAR VOLUME 93.1 fL (81-99); MONOCYTES % 6.1 % (4.4-11.3); NEUTROPHILS # (AUTO) 14.1 (2.1-6.9); NEUTROPHILS % 82.6 % (38.7-80.0); PLATELET COUNT 321 x10e3/uL (140-360); RED BLOOD COUNT 4.04 x10e6/uL (4.3-5.7); RED CELL DISTRIBUTION WIDTH 15.1 % (11.7-14.4)
[2018-10-20 05:48] LABS: ANION GAP 14.7 mmol/L (8-16); BUN/CREATININE RATIO 17 (6-25); CARBON DIOXIDE 24 mmol/L (22-29); CHLORIDE 102 mmol/L (98-107); EST GLOMERULAR FILTRATION RATE > 60 ML/MIN (60-); GLUCOSE 109 mg/dL (74-118); SODIUM 138 mmol/L (136-145)
[2018-10-20 05:57] LABS: POTASSIUM 2.7 mmol/L (3.5-5.1)
[2018-10-20 05:58] LABS: BLOOD UREA NITROGEN 15 mg/dL (7-26)
--- NOTE | 2018-10-20 06:38 | NUR ---
Patient k=2.7. Pt c/o IV pain. Small amount of swelling at IV site. Encourage a cool pack and patient refused. Called Dr warren to inform of k level and IV. Patient refused IV to be replaced. Order for K replacement and may leave IV out.
[2018-10-20] MEDS ORDERED: POTASSIUM CHLORIDE 20 MEQ TAB CR PO NR ×2 (07:00→09:00)
[2018-10-20] MEDS: BUDESONIDE/FORMOTEROL 160/4.5MCG INHALER INH SCH (07:08)
[2018-10-20 07:30] VITALS: BP 154/81
--- NOTE | 2018-10-20 07:30 | NUR ---
REC'D PT AAOX3 AND LAYING IN BED. PT ON ROOM AIR AND NO S/S OF DISTRESS. NO IV ACCESS PER DR. MONTILLA ORDER TO LEAVE IV OUT. STROUD BAG INTACT. SIDE RAILS UPX2, BED IN LOWEST POSITION, AND CALL ASENCIO WITHIN REACH.
[2018-10-20 07:54] VITALS: BP 154/81
[2018-10-20] MEDS: POTASSIUM CHLORIDE 20 MEQ TAB CR PO NR ×5 (08:30→13:36)
[2018-10-20] MEDS: TAMSULOSIN HCL 0.4 MG CAP PO SCH (08:31)
[2018-10-20] MEDS: PANTOPRAZOLE 40 MG 10ML VIAL IV SCH ×2 (08:31→17:00)
[2018-10-20] MEDS: HYDROCORTISONE SOD SUCCINATE 100 MG VIAL IV SCH (08:31)
[2018-10-20] MEDS: DOCUSATE SODIUM 100 MG CAP PO SCH ×2 (08:31→18:14)
[2018-10-20] MEDS: FOLIC ACID 1 MG TAB PO SCH (08:31)
[2018-10-20] MEDS: AMLODIPINE BESYLATE 10 MG TAB PO SCH (08:31)
[2018-10-20] MEDS: ALLOPURINOL 300 MG TAB PO SCH (08:31)
[2018-10-20] MEDS: HEPARIN SOD (PORCINE) 5,000 UNIT/ML VIAL SC SCH (08:40)
[2018-10-20 10:11] LABS: ANION GAP 15.6 mmol/L (8-16); BLOOD UREA NITROGEN 15 mg/dL (7-26); BUN/CREATININE RATIO 15 (6-25); CALCIUM 8.9 mg/dL (8.4-10.2); CARBON DIOXIDE 23 mmol/L (22-29); CHLORIDE 100 mmol/L (98-107); CREATININE, SERUM 0.98 mg/dL (0.72-1.25); EST GLOMERULAR FILTRATION RATE > 60 ML/MIN (60-); GLUCOSE 153 mg/dL (74-118); SODIUM 136 mmol/L (136-145)
[2018-10-20 10:55] LABS: POTASSIUM 2.6 mmol/L (3.5-5.1)
--- NOTE | 2018-10-20 11:00 | NUR ---
CALLED DR. MONTILLA ABOUT CRITICAL POTASSIUM LAB OF 2.6. DR. MONTILLA SAID TO JUST CON'T THE ORAL POTASSIUM (NOW, Q2H, X3) BUT ADMINISTER IT EVERY HOUR UNTIL ALL DOSES ARE COMPLETE.
[2018-10-20 11:30] VITALS: BP 144/68
[2018-10-20] MEDS ORDERED: PREDNISONE10 MG PO (12:13)
[2018-10-20] MEDS ORDERED: VANCOMYCIN HCL500 MG PO (12:17)
[2018-10-20 15:16] VITALS: BP 144/69
--- NOTE | 2018-10-20 15:37 | NUR ---
DR MONTILLA STATES HE WANTS A APPOINTMENT SET WITH DR HERMAN WITH A COPY OF CT AND ABD SCANS THEN THE PT CAN BE RELEASED, UNABLE TO FIND THIS DOCTOR INFORMATION TO ASSIST WITH MAKING THE APPOINTMENT.
[2018-10-20 16:31] LABS: ALANINE AMINOTRANSFERASE 71 IU/L (0-55); ALBUMIN 3.1 g/dL (3.5-5.0); ALKALINE PHOSPHATASE 168 IU/L (40-150); ANION GAP 15.3 mmol/L (8-16); BLOOD UREA NITROGEN 14 mg/dL (7-26); BUN/CREATININE RATIO 18 (6-25); CALCIUM 9.1 mg/dL (8.4-10.2); CARBON DIOXIDE 23 mmol/L (22-29); CHLORIDE 102 mmol/L (98-107); EST GLOMERULAR FILTRATION RATE > 60 ML/MIN (60-); GLUCOSE 97 mg/dL (74-118); POTASSIUM 3.3 mmol/L (3.5-5.1); SODIUM 137 mmol/L (136-145)
[2018-10-20] MEDS ORDERED: POTASSIUM CHLORIDE 20 MEQ TAB CR PO ONE (17:45)
--- NOTE | 2018-10-20 18:57 | NUR ---
PATIENT GIVEN DISCHARGE PAPERS AND EXPLAINED TO HIM AND DAUGHTER. IV HAS BEEN REMOVED AND NO COMPLICATIONS. NO S/S OF DISTRESS. ESCORTED PATIENT VIA WHEELCHAIR. DAUGHTER TOOK PATIENT HOME VIA CAR.
--- NOTE | 2018-10-21 06:54 | Discharge Summary ---
ADDENDUM: Mr. Ness discharged to his request after repletion of his low potassium, felt to be related to diarrhea, which is now resolved. Moderate elevation of liver function. His problems were discussed with Dr. Tran and Dr. Rizo and it was felt acceptable to discharge the patient with outpatient followup. 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 Ness for his urinary retention and that will be checked approximately five days time. MD SERGEI Ramirez/MODL /[id number]
--- NOTE | 2018-10-21 07:04 | Discharge Summary ---
Patient of [facility], Dr. Hamilton, Dr. Alberto Ness, Urology; Dr. Dr. Begum, GI; Dr. Iraj Tran; Dr. Elisa Hoskins; and Dr. Rizo. HOSPITAL COURSE: Mr. Ness is charming, but unfortunate 77-year-old gentleman recently discharged from the hospital with an episode of fever, chills, and hematuria. This was felt to have been a rheumatoid flare by Infectious Disease qa consultant. Over the weekend, I was called because he was nauseated while taking Ceftin. He continued to complain of chills and GI upset and instructed him to come to the emergency room. Eventually, he was found to have C diff colitis, which was treated initially with Flagyl and then vancomycin. He has a history of rheumatoid arthritis, history of hypertension, history of BPH, history of asthma, intermittent anosmia, and renal colic in the past. He is . He smoked a pack a day for 25 years. Semi-retired. Initially treated with Rocephin and Flagyl and then vancomycin. 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 The patient is to be referred to Dr. Begum for ultrasound guided ERCP and biopsy of the ampulla indicated, though this may represent an artifact. This was discussed with Dr. Irja Tran. He also developed urinary retention approximately 500 mL post ERCP, presumably related to Robinul. He was seen by Dr. Hamilton, who recommended Castillo drainage with outpatient followup with Dr. Ness for urodynamic studies. The patient request discharge, He was given a prescription for vancomycin 250 mg a day q.6 hours, prednisone 10 mg a day as directed by Dr. Elisa Hoskins, but in the hospital he was treated with stress steroids only and then replacement. He will continue allopurinol, Flomax, folic acid, amlodipine, budesonide nebulizer treatments. Diarrhea has stopped. White count was still elevated. Follow up CBC will be requested approximately one weeks time. Thank you for this kind referral. MD SERGEI Ramirez/MODL /[id number] cc: MD Dr. Kel Smalls Gastroenterology MD Elisa Rene MD
== END 2018-10-20 18:53 | disposition home or self-care (01) | DRG 372 ==
LOC: ER 11:57 → ERHOLD 17:10 → MED/SURG3 20:06 → OBSVTOIN 10-15 11:56
PROVIDERS: ADMIT Internal Medicine Pulmonary Disease; ATTEND Internal Medicine Pulmonary Disease
PROC: 0DB68ZX Excision of Stomach, Via Natural or Artificial Opening Endoscopic, Diagnostic (ICD-10-PCS; principal; 2018-10-16 17:30)
PROC: 0F7D8ZZ Dilation of Pancreatic Duct, Via Natural or Artificial Opening Endoscopic (ICD-10-PCS; 2018-10-16 17:30)
DX: A04.72 Enterocolitis due to Clostridium difficile, not specified as recurrent (principal); N39.0 Urinary tract infection, site not specified; M06.9 Rheumatoid arthritis, unspecified; K83.8 Other specified diseases of biliary tract; N40.1 Benign prostatic hyperplasia with lower urinary tract symptoms; R33.8 Other retention of urine; R39.14 Feeling of incomplete bladder emptying; N28.1 Cyst of kidney, acquired; R80.9 Proteinuria, unspecified; E87.6 Hypokalemia; E83.51 Hypocalcemia; I10 Essential (primary) hypertension; Z87.891 Personal history of nicotine dependence; K20.9 Esophagitis, unspecified; K29.70 Gastritis, unspecified, without bleeding; J44.9 Chronic obstructive pulmonary disease, unspecified; K22.8 Other specified diseases of esophagus; R33.0 Drug induced retention of urine; T44.3X5A Adverse effect of other parasympatholytics [anticholinergics and antimuscarinics] and spasmolytics, initial encounter; Y92.230 Patient room in hospital as the place of occurrence of the external cause
CPT/HCPCS: 36415; 43239; 43260; 71045; 71046; 74177; 74183; 74328; 76857; 80048; 80053; 81001; 82150; 82378; 82550; 82553; 83690; 84100; 84132; 84484; 85025; 86301; 87086; 87493; 88305; 88312; 93005; 94640; 94664; 99284; G0378; J0696; J1644; J1720; J2001; J3010; J3480; J7030; J7042; J7050; Q9967

== ENCOUNTER 2021-06-21 15:28 | Emergency (ER) | payer MEDICARE, OTHER ==
[~2021-06-21] VITALS: Ht 172.7 cm; Wt 66.7 kg
[~2021-06-21 15:28] MED LIST changes: +VANCOMYCIN HCL500 MG PO
[2021-06-21] MEDS ORDERED: ACETAMINOPHEN 325 MG TAB PO ONE (15:45)
[2021-06-21] MEDS ORDERED: TETANUS/DIPHTHERIA TOX ADULT 0.5 ML SYR IM ONE (15:45)
== END 2021-06-21 17:08 | disposition home or self-care (01) ==
LOC: ER 15:48
DX: S41.112A Laceration without foreign body of left upper arm, initial encounter (principal); S41.111A Laceration without foreign body of right upper arm, initial encounter; W01.0XXA Fall on same level from slipping, tripping and stumbling without subsequent striking against object, initial encounter; Y93.01 Activity, walking, marching and hiking; Y92.008 Other place in unspecified non-institutional (private) residence as the place of occurrence of the external cause; I10 Essential (primary) hypertension; J45.909 Unspecified asthma, uncomplicated; M06.9 Rheumatoid arthritis, unspecified; Z87.442 Personal history of urinary calculi
CPT/HCPCS: 90714; 99284